=== PATIENT | female | born 1965 | race Caucasian/White ===

== ENCOUNTER 2021-08-14 01:41 | Observation (INO) | payer MEDICAID, SELFPAY ==
[2021-08-14] VITALS (15 sets, daily range): BP systolic 147–174; BP diastolic 68–77; PULSE 71–90; RESP 15–19; TEMP 36.7–37.1; O2SAT 91–99; BMI 47.9; BMI 50.3
--- NOTE | 2021-08-14 01:39 | XR_ITS ---
PROCEDURE INFORMATION: Exam: XR Chest Exam date and time: 08/14/2021 1:43 AM Age: 56 years old Clinical indication: Dyspnea; Patient HX: HX smoker TECHNIQUE: Imaging protocol: XR of the chest. Views: 1 view. COMPARISON: No relevant prior studies available. FINDINGS: Lungs: There is interstitial airspace disease in bilateral mid and lower lung zones findings concerning for pneumonia. Pleural spaces: Mild right left pleural effusion. Heart/Mediastinum: Unremarkable. No cardiomegaly. Bones/joints: Unremarkable. IMPRESSION: Interstitial opacities in bilateral mid and lower lung zones concerning for pneumonia
--- NOTE | 2021-08-14 01:45 | HMH.EDGENADL ---
ED Disposition Clinical Impression: Acute exacerbation of CHF (congestive heart failure), Hypokalemia, Angina at rest Disposition: Admitted as Observation Condition on Discharge: Undetermined - Critical Care Critical Care Time: No Attestation: On , the high probability of a clinically significant, sudden or life threatening deterioration of the following system(s) required my full and direct attention, intervention and personal management. The time I documented below is in addition to time spent performing reported procedures but includes the following listed in this critical care notation. Medical Decision Making - Medical Records Medical records reviewed: Yes: I reviewed the patient's medical records. - Erasmo Inquiry Pt receiving controlled substance: No Vital Signs: 08/14/21 01:37 08/14/21 01:59 08/14/21 02:09 Temperature 98.4 F Temperature Source Oral Pulse Rate 84 86 Pulse Rate [Right] 84 Respiratory Rate 19 15 16 Blood Pressure 147/77 H 156/75 H Blood Pressure [Right Arm] 174/75 H Blood Pressure Mean 100 102 Blood Pressure Mean [Right Arm] 108 Blood Pressure Source [Right Arm] Automatic Cuff 02 Sat by Pulse Oximetry 93 L 91 L 92 L Oxygen Delivery Method Room Air 08/14/21 02:19 08/14/21 02:29 08/14/21 02:56 Temperature 98.2 F Temperature Source Oral Pulse Rate 83 88 86 Pulse Rate [Right] Respiratory Rate 19 18 17 Blood Pressure 152/76 H 154/69 H 149/68 H Blood Pressure [Right Arm] Blood Pressure Mean 109 97 Blood Pressure Mean [Right Arm] Blood Pressure Source [Right Arm] 02 Sat by Pulse Oximetry 91 L 92 L Oxygen Delivery Method Room Air - Lab Data Lab Results 08/14/21 01:30: WBC 11.5 H, RBC 3.70 L, Hgb 10.3 L, Hct 31.7 L, MCV 85.7, MCH 27.9, MCHC 32.6, RDW 16.0, Plt Count 461 H, MPV 7.2 L, Neut % (Auto) 77.3, Lymph % (Auto) 15.3, [place] % (Auto) 4.2, Eos % (Auto) 1.9, Baso % (Auto) 1.3, Neut # (Auto) 8.9 H, Lymph # (Auto) 1.8, [place] # (Auto) 0.5, Eos # (Auto) 0.2, Baso # (Auto) 0.1 08/14/21 01:30: PT 11.4, INR 1.01 08/14/21 01:30: Sodium 139, Potassium 2.8 L*, Chloride 105, Carbon Dioxide 29, Anion Gap 7.8, BUN 20 H, Creatinine 1.70 H, Estimated Creat Clear 30, Estimated GFR 31 L, Est GFR ( Amer) 38 L, Glucose 232 H, Calcium 7.8 L, Total Bilirubin 0.2, AST 23, ALT 26, Alkaline Phosphatase 192 H, Troponin I 0.02, Total Protein 6.0 L, Albumin 3.1 L, Globulin 2.9, Albumin/Globulin Ratio 1.1 08/14/21 01:30: NT-Pro-B Natriuret Pep 2210 H 08/14/21 01:30: SARS-CoV-2 (PCR) Not detected, Influenza A Untype (PCR) Not detected, Influenza Type B (PCR) Not detected 08/14/21 01:45: Urine Color Yellow, Urine Appearance Clear, Urine pH 7.0, Ur Specific [place] 1.010, Urine Protein Negative, Urine Glucose (UA) 2+, Urine Ketones Negative, Urine Blood Trace-i, Urine Nitrate Negative, Urine Bilirubin Negative, Urine Urobilinogen 0.2, Ur Leukocyte Esterase 1+ A, Urine RBC 3-5, Urine WBC 5-10, Ur Squamous Epith Cells 5-10, Urine Bacteria 1+, Urine Mucus 1+ Result diagrams: 08/14/21 01:30 08/14/21 01:30 Orders (Tests/Meds): ED MEDICATIONS Generic Name Dose Route Start Last Admin Trade Name Sukhwinder PRN Reason Stop Dose Admin Acetaminophen 650 mg 08/14/21 02:55 Acetaminophen 325mg Tab PO 09/13/21 02:54 Q4HP PRN Fever or Mild Pain Aspirin 81 mg 08/14/21 09:00 Aspirin 81mg Chewable Tablet PO 09/13/21 08:59 DAILY SERJIO Atorvastatin Calcium 40 mg 08/14/21 21:00 Atorvastatin 40mg Tablet PO 09/13/21 20:59 HS SERJIO Buspirone HCl 5 mg 08/14/21 09:00 Buspirone Hcl 5 Mg Tablet PO 09/13/21 08:59 TID SERJIO Citalopram Hydrobromide 20 mg 08/14/21 09:00 Citalopram 20mg Tablet PO 09/13/21 08:59 DAILY SERJIO Furosemide 40 mg 08/14/21 02:55 Furosemide 40mg/4ml Vial IV 09/13/21 02:54 ONCE SERJIO Heparin Sodium/Dextrose 500 mls @ 24 mls/hr 08/14/21 02:55 Heparin 25,000 Units In D5w 500ml Premix IV 09/13/21 02:54
[2021-08-14 01:50] LABS: Basophils # 0.1 K/mm3 (0-0.2); Basophils % 1.3 % (0.1-2.0); Eosinophils # 0.2 K/mm3 (0.0-0.4); Eosinophils % 1.9 % (0.1-12.0); Hematocrit 31.7 % (37.0-47.0); Hemoglobin 10.3 g/dL (12.2-16.2); Lymphocytes # 1.8 K/mm3 (0.7-4.5); Lymphocytes % 15.3 % (10-50); Mean Corpuscular HGB Conc 32.6 g/dL (31.8-35.4); Mean Corpuscular Hemoglobin 27.9 pg (27.0-31.2); Mean Corpuscular Volume 85.7 fl (81-99); Mean Platelet Volume 7.2 fl (7.4-10.4); Monocytes # 0.5 K/mm3 (0.1-1.0); Monocytes % 4.2 % (1.7-9.3); Neutrophils # 8.9 K/mm3 (1.8-7.8); Neutrophils % 77.3 % (37.0-80.0); Platelet Count 461 K/mm3 (142-424); White Blood Count 11.5 K/mm3 (4.8-10.8)
--- NOTE | 2021-08-14 01:53 | ECG_ITS ---
APPROVED REPORT Exam: Resting ECG HR:88 bpm ECG Measurements Heart Rate 88 AXES OH 134 P 64 QRSd 94 QRS 61 QT 332 T 11 QTc 378 Conclusion SINUS RHYTHM NONSPECIFIC T-WAVE ABNORMALITY BORDERLINE ECG UNCONFIRMED REPORT Electronically signed by : Yonas Sahu MD 08/16/2021 22:20:49
[2021-08-14 01:57] LABS: Alanine Aminotransferase 26 U/L (12-78); Albumin Level 3.1 g/dl (3.5-5.0); Albumin/Globulin Ratio 1.1 (1.1-1.8); Alkaline Phosphatase 192 U/L (38-126); Anion Gap 7.8 mEq/L (5-15); Aspartate Amino Transferase 23 U/L (14-36); Bilirubin,Total 0.2 mg/dl (0.2-1.3); Blood Urea Nitrogen 20 mg/dl (7-17); Calcium 7.8 mg/dl (8.4-10.2); Carbon Dioxide 29 mmol/L (22.0-30.0); Chloride 105 mmol/L (98-107); Estimated Glomerular Filt Rate 31 ml/min (>60); GFR (African American) 38 ML/MIN (>60); Globulin 2.9 g/dL (1.3-3.2); Glucose 232 mg/dl (74-100); INR 1.01 (0.9-1.1); Prothrombin Time 11.4 seconds (10.1-12.5); Sodium 139 mmol/L (136-145)
[2021-08-14 02:06] LABS: NT Pro Brain Natriuretic Pep. 2210 pg/mL (0-125)
[2021-08-14 02:08] LABS: Troponin I 0.02 ng/ml (0.00-0.034)
[2021-08-14 02:19] LABS: Creatinine Clearance Estimated 30 mL/min (50-200)
[2021-08-14 02:20] LABS: Potassium 2.8 mmoL/L (3.5-5.1)
[2021-08-14 02:24] LABS: Coronavirus 19, PCR Not Detected (NotDetected); Influenza A, PCR Not Detected (NotDetected); Influenza B, PCR Not Detected (NotDetected)
[2021-08-14 02:27] LABS: Microscopic, Urine URINE MICROSCOPIC (MICROSCOPIC)
--- NOTE | 2021-08-14 02:33 | PC.NURSE ---
notified of critical potassium @ 8083
[2021-08-14 02:40] LABS: Appearance,Urine CLEAR (Clear); Bilirubin,Urine Negative (Negative); Blood, Urine TRACE-I (Negative); Color,Urine YELLOW (Yellow); Glucose,Urine (UA) 2+ (Negative); Ketones,Urine Negative (Negative); Leukocyte Esterase,Urine 1+ (Negative); Nitrate,Urine Negative (Negative); Protein,Urine Negative (Negative); Urobilinogen,Urine 0.2 EU/dl (0.2)
[2021-08-14 03:05] LABS: Bacteria,Urine 1+ /lpf; Mucus,Urine 1+ /lpf
--- NOTE | 2021-08-14 03:38 | PC.NURSE ---
patient up to floor @ 03:18am via wheelchair.
[2021-08-14 04:30] LABS: Activated Partial Thrombo Time 22.5 seconds (22.8-30.6)
[2021-08-14 05:35] LABS: Troponin I 0.01 ng/ml (0.00-0.034)
[2021-08-14 05:48] LABS: POC Glucose,Bedside 278 (70-110)
--- NOTE | 2021-08-14 06:59 | PC.WOUNDNOTE ---
Opened wound to coccyx, Pt states she had surgery to remove an abscess x1 week ago. States her daughter has been doing all dressing changes at home for her. Applied 4x4 gauze, ABD pad, and tape. C/D/I.
--- NOTE | 2021-08-14 08:25 | HMH.HP ---
*Admission Date: 08/14/21 *Chief complaint: short of breath, NSTEMI *History of present illness: Ms. Serrano is a 56-year-old female with past medical history of morbid obesity, CHF, COPD, NEVAEH, CKD, type 2 diabetes, and recent diagnosis of pulmonary emboli in May (on Eliquis since diagnosis). Is disabled, fairly and active on a daily basis. Had a recent hospitalization at 2 weeks ago for surgical debridement and excision of abscess on her right buttock. Recently finished antibiotics, daughter helping with wound care. She presented to [facility] with worsening shortness of breath that has been progressive for the past 3 to 4 months. She has been unable to get in with her property accountant and Judith (Drs. Pierre and Prince) and symptoms finally got to the point that she went to the hospital. States she has had shortness of breath when lying flat, is more comfortable sitting up, increased edema over the past several months. More acutely worse over the past week since getting home from recent admission at . Denies any fever, productive cough, oxygen requirement at home. Wears a CPAP at home to sleep. On arrival to [facility], EKG obtained showing nonspecific T wave abnormalities. Labs with high-sensitivity troponin showing slight elevation concerning for NSTEMI. Given comorbidities and NSTEMI, [facility] cardiology was consulted. Patient was accepted for transfer. Admitted to medicine for further management after ER to ER transfer. Work-up in our ER concerning for UTI and CHF exacerbation. Diuresed at [facility] with fair response but for monitoring/measuring of output process. This morning she is continues to report shortness of breath and some heaviness in her chest. Denies cough. Denies fever. Diarrhea since antibiotics for her buttock wound. Is afebrile. Blood pressure above goal. Alert and oriented x3. [facility] History I have reviewed the patient's past medical history: Yes Medical History: Reports:: Congestive Heart Failure, Diabetes Mellitus Type 2, Hypertension Denies:: Cancer, MRSA *Have you ever received a pneumonia vaccine?: Yes *Have you received a flu vaccine this season?: Yes Other Surgeries: Yes: Cholecystectomy, Hernia Repair, Hysterectomy-Total Amputation: No Fractures: No - *Social History Last grade of school completed: High school graduate Smoking Status: Former smoker Alcohol Intake: never *Occupational Status:: disabled Housing: house Household Members: significant other, children *Travel in the last 8 weeks: None Family Hx:: Heart Attack, Hypertension Review of Systems - Review of Systems Review of systems:: pertinent systems reviewed and negative unless documented below (14 point review of systems performed, pertinent positives and negatives as per HPI) Meds Home Medications Medication Instructions Recorded Confirmed Type Apixaban [Eliquis 5mg tab] 5 mg PO BID 08/14/21 08/14/21 History Aspirin [Aspirin 81mg chewable 81 mg PO DAILY 08/14/21 08/14/21 History tab] Atorvastatin Calcium [Lipitor 40mg 40 mg PO HS 08/14/21 08/14/21 History Tab] Buspirone HCl [Buspar 5mg tablet] 5 mg PO TID 08/14/21 08/14/21 History Citalopram Hydrobromide 20 mg PO DAILY 08/14/21 08/14/21 History [Citalopram 20mg Tablet] Empagliflozin [Jardiance 10mg 25 mg PO DAILY 08/14/21 08/14/21 History Tablet] Furosemide [Furosemide 40MG tAB*] 40 mg PO DAILY 08/14/21 08/14/21 History Insulin Glargine,Hum.rec.anlog 75 units SQ AM 08/14/21 08/14/21 History [Lantus Solostar 100 Units/mL 3mL flexpen] Loratadine [Claritin] 10 mg PO DAILY 08/14/21 08/14/21 History Metformin HCl [Metformin 1000mg 1,000 mg PO BID 08/14/21 08/14/21 History Tablets] Metoprolol Succinate [Metoprolol 25 mg PO DAILY 08/14/21 08/14/21 History Succinate 25mg Tablet*] Nicotine [Nicoderm 21mg/24hr 21 mg TD DAILY 08/14/21 08/14/21 History patch] Omeprazol
--- NOTE | 2021-08-14 08:49 | ECG_ITS ---
APPROVED REPORT Exam: Resting ECG HR:78 bpm ECG Measurements Heart Rate 78 AXES MN 136 P 61 QRSd 103 QRS 47 QT 339 T 42 QTc 373 Conclusion SINUS RHYTHM NONSPECIFIC T-WAVE ABNORMALITY BORDERLINE ECG UNCONFIRMED REPORT Electronically signed by : Yonas Sahu MD 08/16/2021 22:20:25
[2021-08-14 09:40] LABS: Troponin I < 0.01 ng/ml (0.00-0.034)
--- NOTE | 2021-08-14 10:21 | HMH.PHAVTE ---
[facility] Pharmacy VTE Monitoring - Patient Demographics Admission date: 08/14/21 Report Date: 08/14/21 Time: 10:21 Allergies/Adverse Reactions: Patient Allergies No Known Allergies Allergy (Verified 08/14/21 01:58) Height: 1.57 m Weight: 124.239 kg Patient Problems: Current Active Problems Acute exacerbation of CHF (congestive heart failure) (Acute) Hypokalemia (Acute) Angina at rest (Acute) - VTE Risk Labs: VTE Related Lab Results Hgb 10.3 g/dL (12.2-16.2) L 08/14/21 01:30 Hct 31.7 % (37.0-47.0) L 08/14/21 01:30 Plt Count 461 K/mm3 (142-424) H 08/14/21 01:30 PT 11.4 seconds (10.1-12.5) 08/14/21 01:30 INR 1.01 (0.9-1.1) 08/14/21 01:30 APTT 22.5 seconds (22.8-30.6) L 08/14/21 01:30 BUN 20 mg/dl (7-17) H 08/14/21 01:30 Creatinine 1.70 mg/dl (0.52-1.04) H 08/14/21 01:30 Estimated Creat Clear 30 mL/min (50-200) 08/14/21 01:30 VTE Score: 8 VTE Risk Level: Moderate Risk - Prophylaxis Types of VTE Prophylaxis: TEDS Knee High (HEPARIN DRIP ORDERED AND MANUEL HOSE.), Pharmacological Pharmacologic Type: Heparin
--- NOTE | 2021-08-14 10:22 | P.CONPHA_ITS ---
[facility] Pharmacy Heparin Dosing - Demographic Data Admission date:: 08/14/21 Date: 08/14/21 Time: 10:22 Allergies/Adverse Reactions: Allergies Allergy/AdvReac Type Severity Reaction Status Date / Time No Known Allergies Allergy Verified 08/14/21 01:58 Height: 1.57 m Weight: 124.2 kg - Indication Medication therapy:: Heparin Patient Problems: Current Active Problems Acute exacerbation of CHF (congestive heart failure) (Acute) Hypokalemia (Acute) Angina at rest (Acute) CVA?: No Bleeding problem?: No Kidney disease?: No [place]?: No Desired PTT range:: Other Comments:: 50-75 - Labs Anticoagulation Lab Results:: 08/14/21 01:30 Hgb 10.3 L Hct 31.7 L Plt Count 461 H - Monitoring Dose Monitor 1 Date: 08/14/21 Time: 01:30 PTT Result:: 22.9 Infusion Rate:: 1000 UNITS/HR. OVERNIGHT DID NOT GIVE BOLUS. - Core Measures Is INR > or = 2 at discharge?: No Most Recent Labs:: Laboratory Results - last 24 hr 08/14/21 01:30: WBC 11.5 H, RBC 3.70 L, Hgb 10.3 L, Hct 31.7 L, MCV 85.7, MCH 27.9, MCHC 32.6, RDW 16.0, Plt Count 461 H, MPV 7.2 L, Neut % (Auto) 77.3, Lymph % (Auto) 15.3, [place] % (Auto) 4.2, Eos % (Auto) 1.9, Baso % (Auto) 1.3, Neut # (Auto) 8.9 H, Lymph # (Auto) 1.8, [place] # (Auto) 0.5, Eos # (Auto) 0.2, Baso # (Auto) 0.1 08/14/21 01:30: PT 11.4, INR 1.01 08/14/21 01:30: Sodium 139, Potassium 2.8 L*, Chloride 105, Carbon Dioxide 29, Anion Gap 7.8, BUN 20 H, Creatinine 1.70 H, Estimated Creat Clear 30, Estimated GFR 31 L, Est GFR ( Amer) 38 L, Glucose 232 H, Calcium 7.8 L, Total Bilirubin 0.2, AST 23, ALT 26, Alkaline Phosphatase 192 H, Troponin I 0.02, Total Protein 6.0 L, Albumin 3.1 L, Globulin 2.9, Albumin/Globulin Ratio 1.1 08/14/21 01:30: NT-Pro-B Natriuret Pep 2210 H 08/14/21 01:30: SARS-CoV-2 (PCR) Not detected, Influenza A Untype (PCR) Not detected, Influenza Type B (PCR) Not detected 08/14/21 01:30: APTT 22.5 L 08/14/21 01:45: Urine Color Yellow, Urine Appearance Clear, Urine pH 7.0, Ur Specific [place] 1.010, Urine Protein Negative, Urine Glucose (UA) 2+, Urine Ketones Negative, Urine Blood Trace-i, Urine Nitrate Negative, Urine Bilirubin Negative, Urine Urobilinogen 0.2, Ur Leukocyte Esterase 1+ A, Urine RBC 3-5, Urine WBC 5-10, Ur Squamous Epith Cells 5-10, Urine Bacteria 1+, Urine Mucus 1+ 08/14/21 04:50: Troponin I 0.01 08/14/21 05:36: POC Glucose 278 H 08/14/21 08:36: Troponin I < 0.01 Were Heparin and Warfarin started on the same day?: No Comments:: PATIENT'S HEPARIN DOSE STOPPED AND MD RESTARTED PATIENT'S ELIQUIS DOSE.
[2021-08-14 11:29] LABS: PTT Heparin (inpatient only) 22.9 Seconds (23.6-34.0)
--- NOTE | 2021-08-14 11:54 | HMH.PHACONS ---
- Pharmacy Consult Date: 08/14/21 Time: 11:54 Referring provider: DR. MURPHY Reason for Consult:: VANCOMYCIN DOSING Allergies and ADEs:: Allergies Allergy/AdvReac Type Severity Reaction Status Date / Time No Known Allergies Allergy Verified 08/14/21 01:58 Home Medications:: Home Medications Medication Instructions Recorded Confirmed Type Apixaban [Eliquis 5mg tab] 5 mg PO BID 08/14/21 08/14/21 History Aspirin [Aspirin 81mg chewable 81 mg PO DAILY 08/14/21 08/14/21 History tab] Atorvastatin Calcium [Lipitor 40mg 40 mg PO HS 08/14/21 08/14/21 History Tab] Buspirone HCl [Buspar 5mg tablet] 5 mg PO TID 08/14/21 08/14/21 History Citalopram Hydrobromide 20 mg PO DAILY 08/14/21 08/14/21 History [Citalopram 20mg Tablet] Empagliflozin [Jardiance 10mg 25 mg PO DAILY 08/14/21 08/14/21 History Tablet] Furosemide [Furosemide 40MG tAB*] 40 mg PO DAILY 08/14/21 08/14/21 History Insulin Glargine,Hum.rec.anlog 75 units SQ AM 08/14/21 08/14/21 History [Lantus Solostar 100 Units/mL 3mL flexpen] Loratadine [Claritin] 10 mg PO DAILY 08/14/21 08/14/21 History Metformin HCl [Metformin 1000mg 1,000 mg PO BID 08/14/21 08/14/21 History Tablets] Metoprolol Succinate [Metoprolol 25 mg PO DAILY 08/14/21 08/14/21 History Succinate 25mg Tablet*] Nicotine [Nicoderm 21mg/24hr 21 mg TD DAILY 08/14/21 08/14/21 History patch] Omeprazole [Omeprazole 40mg 40 mg PO DAILY 08/14/21 08/14/21 History Capsule] Prazosin HCl [Minipress] 2 mg PO HS 08/14/21 08/14/21 History Ropinirole HCl [Requip 1mg tablet] 1 mg PO HS 08/14/21 08/14/21 History Sodium Bicarbonate 650 mg PO DAILY 08/14/21 08/14/21 History Tiotropium Br/Olodaterol HCl 2 puff IH DAILY 08/14/21 08/14/21 History [Stiolto Respimat Inhal [place]] Trazodone HCl 100 mg PO HS 08/14/21 08/14/21 History buPROPion HCL [Wellbutrin XL] 300 mg PO DAILY 08/14/21 08/14/21 History glipiZIDE [Glipizide ER] 10 mg PO DAILY 08/14/21 08/14/21 History risperiDONE [Risperdal 1mg Tablet] 1 mg PO HS 08/14/21 08/14/21 History Height: 1.57 m Weight: 124.2 kg Laboratory Results:: Laboratory Results - last 24 hr 08/14/21 01:30: WBC 11.5 H, RBC 3.70 L, Hgb 10.3 L, Hct 31.7 L, MCV 85.7, MCH 27.9, MCHC 32.6, RDW 16.0, Plt Count 461 H, MPV 7.2 L, Neut % (Auto) 77.3, Lymph % (Auto) 15.3, [place] % (Auto) 4.2, Eos % (Auto) 1.9, Baso % (Auto) 1.3, Neut # (Auto) 8.9 H, Lymph # (Auto) 1.8, [place] # (Auto) 0.5, Eos # (Auto) 0.2, Baso # (Auto) 0.1 08/14/21 01:30: PT 11.4, INR 1.01 08/14/21 01:30: Sodium 139, Potassium 2.8 L*, Chloride 105, Carbon Dioxide 29, Anion Gap 7.8, BUN 20 H, Creatinine 1.70 H, Estimated Creat Clear 30, Estimated GFR 31 L, Est GFR ( Amer) 38 L, Glucose 232 H, Calcium 7.8 L, Total Bilirubin 0.2, AST 23, ALT 26, Alkaline Phosphatase 192 H, Troponin I 0.02, Total Protein 6.0 L, Albumin 3.1 L, Globulin 2.9, Albumin/Globulin Ratio 1.1 08/14/21 01:30: NT-Pro-B Natriuret Pep 2210 H 08/14/21 01:30: SARS-CoV-2 (PCR) Not detected, Influenza A Untype (PCR) Not detected, Influenza Type B (PCR) Not detected 08/14/21 01:30: APTT 22.5 L 08/14/21 01:45: Urine Color Yellow, Urine Appearance Clear, Urine pH 7.0, Ur Specific [place] 1.010, Urine Protein Negative, Urine Glucose (UA) 2+, Urine Ketones Negative, Urine Blood Trace-i, Urine Nitrate Negative, Urine Bilirubin Negative, Urine Urobilinogen 0.2, Ur Leukocyte Esterase 1+ A, Urine RBC 3-5, Urine WBC 5-10, Ur Squamous Epith Cells 5-10, Urine Bacteria 1+, Urine Mucus 1+ 08/14/21 04:50: Troponin I 0.01 08/14/21 05:36: POC Glucose 278 H 08/14/21 08:36: Troponin I < 0.01 08/14/21 10:55: APTT 22.9 L Medical History: Reports:: Congestive Heart Failure, Diabetes Mellitus Type 2, Hypertension Denies:: Cancer, MRSA Assessment and Plan - Assessment and plan all Dx Assessment and Plan for all problems:: RECOMMEND STARTING WITH VANCOMYCIN 1750 MG Q24H AT THIS TIME. WILL OBTAIN TROUGH LEVEL PRIOR TO 3RD OR 4TH DO
[2021-08-14 12:13] LABS: POC Glucose,Bedside 289 (70-110)
[2021-08-14 14:25] LABS: Chloride 99 mmol/L (98-107)
[2021-08-14 14:26] LABS: Potassium 3.2 mmoL/L (3.5-5.1); Sodium 139 mmol/L (136-145)
[2021-08-14 14:28] LABS: Alanine Aminotransferase 35 U/L (12-78); Alkaline Phosphatase 175 U/L (38-126); Anion Gap 15.2 mEq/L (5-15); Aspartate Amino Transferase 30 U/L (14-36); Bilirubin,Total 0.4 mg/dl (0.2-1.3); Carbon Dioxide 28 mmol/L (22.0-30.0)
[2021-08-14 14:29] LABS: Albumin Level 3.9 g/dl (3.5-5.0); Albumin/Globulin Ratio 1.3 (1.1-1.8); Calcium 9.3 mg/dl (8.4-10.2); Globulin 3.1 g/dL (1.3-3.2); Magnesium 1.7 mg/dl (1.6-2.3)
[2021-08-14 14:53] LABS: Blood Urea Nitrogen 21 mg/dl (7-17); Creatinine Clearance Estimated 29 mL/min (50-200); Estimated Glomerular Filt Rate 31 ml/min (>60); GFR (African American) 38 ML/MIN (>60)
--- NOTE | 2021-08-14 14:58 | PC.WOUNDNOTE ---
Spoke with adelia about critcal lab for glucose
[2021-08-14 14:59] LABS: Glucose 400 mg/dl (74-100)
--- NOTE | 2021-08-14 15:20 | PC.NURSE ---
Spoke with vincent and notified him of glucose.
[2021-08-14 15:46] LABS: POC Glucose,Bedside 357 (70-110)
--- NOTE | 2021-08-14 20:43 | PC.NURSE ---
Pt has no changed from previous assessment. Will continue to monitor.
[2021-08-15] VITALS: BP 160/100; PULSE 70; PULSE 75; RESP 16; TEMP 37; O2SAT 98
[2021-08-15 04:00] VITALS: BP 138/75; PULSE 65; RESP 16; TEMP 36.9; O2SAT 98
--- NOTE | 2021-08-15 04:26 | PC.NURSE ---
Pt ambulated to the bathroom with supervision only. PT encouraged to use mesh panties for dressing since the tape was causing her discomfort with dressing changes. No longer c/o diarrhea this shift. Dressing gets saturated with every urine. PT refuses to have a calvillo placed at this time. tolerates dressing changes. used cpap at hs. uses call arvizu for needs.
--- NOTE | 2021-08-15 05:55 | PC.NURSE ---
Juma VAZQUEZ NOTIFIED OF CONSULT.
[2021-08-15 06:33] VITALS: PULSE 75; PULSE 76; O2SAT 95
[2021-08-15 06:42] LABS: POC Glucose,Bedside 138 (70-110)
--- NOTE | 2021-08-15 07:00 | CA_ITS ---
APPROVED REPORT EXAM: Comprehensive 2D, Doppler, and color-flow Echocardiogram Production Welder: HELENA Jara, RVS Ht: 5 ft 1 in Wt: 273lbs BSA: 2.16 BP: 149/68 mmHg Indications: NSTEMI, CHF, COPD,EXMOKER, OBESITY.EDEMA Echo Enhancing Agent Comments: POOR ACOUSTICS THROUGHOUT EXAM 2D Dimensions IVSd 1.07 cm LVEF (Visual) 48.30 % PWd 1.06 cm LA Volume 100.70 mL LVDd 5.74 cm LA Volume Index [id number] mL/m2 (M/F) 16-34 LVDs 4.32 cm Aortic Root 2.51 cm Left Atrium 4.49 cm LVOT 2.18 cm (M/F) 1.5-2.5 M-Mode Dimensions LA Diam 4.76 cm (1.9-4.0) Ao Diam 2.85 cm (2.0-3.7) EPSs 1.75 cm TAPSE 2.42 (<1.7) LV Diastology E Decel Time 163.00 (160-240 msec) E/A Ratio 2.65 MED E' 5.50 (< 7 cm/sec) MED A' 7.00 cm/s E'/MED E' Ratio 23.93 (>14) LAT E' 8.30 (<10 cm/sec) LAT A' 6.80 cm/s E/LAT E' Ratio 15.86 (>14) Aortic Valve LVOT Max 95.00 (70-110 cm/s) LVOT VTI 19.94 cm AoV Peak Kamaljit. 139.00 (50-130 cm/s) AO Peak GR. 7.70 mmHg AO Mean GR. 4.80 (<5 mmHg) AO VTI 32.39 (18-25 cm) YOEL (VTI) 2.30 (2.5-4.5 cm2) Mitral Valve MV A Velocity 50.00 (40-130 cm/s) E/A Ratio 2.65 MV Decel. Time 163.00 (160-240 ms) MV Mean Gr. 2.20 (<2mmHg) MV PHT 60.00 ms Pulmonary Valve PV Peak Velocity 83.00 (50-150 cm/s) Tricuspid Valve TR P. Velocity 272.00 cm/s RAP Estimate 10.00 mmHg RVSP 39.50 mmHg Left Ventricle Left atrium is mildly enlarged, left ventricle is normal size, mild concentric left ventricular hypertrophy, estimated ejection fraction 55% with no regional wall motion abnormality, endocardial surfaces are poorly visualized. Parameters are inconclusive. Right Ventricle Right atrium and right ventricle are mildly enlarged with normal contractility. Aortic Valve Aortic valve is minimally thickened and calcified without aortic stenosis or aortic insufficiency. Mitral Valve Mitral valve leaflets are minimally thickened, there is mild to moderate mitral regurgitation. Tricuspid Valve Tricuspid valve is grossly normal, there is mild tricuspid regurgitation, tricuspid regurgitation jet velocity is inadequate for calculation of the right ventricular systolic pressure. Pulmonic Valve Pulmonic valve is poorly visualized. Great Vessels Aortic root is normal size. Inferior vena cava is poorly visualized. Pericardium No significant pericardial effusion noted. Conclusion 1. Technically difficult study because of the patient factors and poor acoustic windows. 2. Mild biatrial enlargement, normal left ventricular size, mild concentric left ventricular hypertrophy, estimated ejection fraction 5% with no regional wall motion abnormality, diastolic parameters are inconclusive. 3. Mildly enlarged right ventricle with normal contractility. 4. Mild to moderate mitral and mild tricuspid regurgitation. 5. No significant pericardial effusion. 6. Inferior vena cava is poorly visualized. Electronically signed by : Ovidio Diggs MD 08/15/2021 14:32:19
[2021-08-15 07:01] LABS: Basophils # 0.1 K/mm3 (0-0.2); Basophils % 0.8 % (0.1-2.0); Eosinophils # 0.3 K/mm3 (0.0-0.4); Eosinophils % 2.5 % (0.1-12.0); Hematocrit 32.4 % (37.0-47.0); Hemoglobin 10.6 g/dL (12.2-16.2); Lymphocytes # 2.2 K/mm3 (0.7-4.5); Lymphocytes % 20.4 % (10-50); Mean Corpuscular HGB Conc 32.7 g/dL (31.8-35.4); Mean Corpuscular Hemoglobin 26.3 pg (27.0-31.2); Mean Corpuscular Volume 80.4 fl (81-99); Mean Platelet Volume 6.6 fl (7.4-10.4); Monocytes # 0.6 K/mm3 (0.1-1.0); Monocytes % 5.7 % (1.7-9.3); Neutrophils # 7.7 K/mm3 (1.8-7.8); Neutrophils % 70.6 % (37.0-80.0); Platelet Count 438 K/mm3 (142-424); Red Blood Count 4.03 M/mm3 (4.20-5.40); Red Cell Distribution Width 15.4 % (11.5-17.5); White Blood Count 10.8 K/mm3 (4.8-10.8)
--- NOTE | 2021-08-15 07:04 | PC.NURSE ---
PT slept all night. She took all her meds adn said that is the best night sleep i have had in a while. Spoke with son and he agreed. PT given x1 dose of tordal and reported that it has been effective. PT is scared to home due to falling.
[2021-08-15 07:08] LABS: Chloride 104 mmol/L (98-107); Potassium 3.1 mmoL/L (3.5-5.1); Sodium 143 mmol/L (136-145)
[2021-08-15 07:10] LABS: Alanine Aminotransferase 28 U/L (12-78); Aspartate Amino Transferase 27 U/L (14-36); Blood Urea Nitrogen 20 mg/dl (7-17); Creatinine Clearance Estimated 30 mL/min (50-200); Estimated Glomerular Filt Rate 34 ml/min (>60); GFR (African American) 41 ML/MIN (>60)
[2021-08-15 07:11] LABS: Albumin Level 3.6 g/dl (3.5-5.0); Albumin/Globulin Ratio 1.2 (1.1-1.8); Alkaline Phosphatase 136 U/L (38-126); Bilirubin,Total 0.3 mg/dl (0.2-1.3); Calcium 9.3 mg/dl (8.4-10.2); Carbon Dioxide 31 mmol/L (22.0-30.0); Globulin 3.1 g/dL (1.3-3.2); Glucose 149 mg/dl (74-100); Magnesium 2.1 mg/dl (1.6-2.3); Total Protein,Serum 6.7 g/dl (6.3-8.2)
[2021-08-15 07:12] LABS: Anion Gap 11.1 mEq/L (5-15)
[2021-08-15 07:46] VITALS: BP 157/97; PULSE 83; RESP 22; TEMP 37
--- NOTE | 2021-08-15 08:09 | HMH.DCSUM ---
General - General Admission date:: 08/14/21 Discharge date: 08/15/21 HPI HPI: Ms. Serrano is a 56-year-old female with past medical history of morbid obesity, CHF, COPD, NEVAEH, CKD, type 2 diabetes, and recent diagnosis of pulmonary emboli in May (on Eliquis since diagnosis). Is disabled, fairly and active on a daily basis. Had a recent hospitalization at 2 weeks ago for surgical debridement and excision of abscess on her right buttock. Recently finished antibiotics, daughter helping with wound care. She presented to [facility] with worsening shortness of breath that has been progressive for the past 3 to 4 months. She has been unable to get in with her poultryman and Judith (Drs. Pierre and Prince) and symptoms finally got to the point that she went to the hospital. States she has had shortness of breath when lying flat, is more comfortable sitting up, increased edema over the past several months. More acutely worse over the past week since getting home from recent admission at . Denies any fever, productive cough, oxygen requirement at home. Wears a CPAP at home to sleep. On arrival to [facility], EKG obtained showing nonspecific T wave abnormalities. Labs with high-sensitivity troponin showing slight elevation concerning for NSTEMI. Given comorbidities and NSTEMI, [facility] cardiology was consulted. Patient was accepted for transfer. Admitted to medicine for further management after ER to ER transfer. Work-up in our ER concerning for UTI and CHF exacerbation. Diuresed at [facility] with fair response but for monitoring/measuring of output process. This morning she is continues to report shortness of breath and some heaviness in her chest. Denies cough. Denies fever. Diarrhea since antibiotics for her buttock wound. Is afebrile. Blood pressure above goal. Alert and oriented x3. Hospital Course Hospital Course: Patient was admitted. Diuresed aggressively with Lasix. Did well with this and her kidney function actually improved. Echo this morning showed EF 54% with evidence of diastolic dysfunction patient tolerated BiPAP through the night and this morning was able to tolerate room air. Wound was treated by nursing staff. Patient has an appointment with [facility] surgical service for wound care evaluation later today and plans to reschedule labs in the next couple of days. She feels much better this morning glucose is better, hemoglobin and hematocrit stable. It was thought patient might have a UTI on admission, so far culture is negative. Plan to discharge patient today on daily Lasix. Will arrange follow-up with her cardiology group in [place]. She sees respiratory care service Please arrange for follow-up there. We have encouraged her to continue holding her SGLT2 because of high risk of skin infections in her perineal area. We have encouraged her to follow-up with surgical service and to maintain her BiPAP therapy at night. Because of her significant wound, issues with mobility and multiple medical problems I think she would be an excellent candidate for home health services. In my [id number] assessment of her today I determined that because of her significant obesity, wound and dyspnea she has great difficulty leaving her home and will be eligible for home health for PT/OT/wound care/nursing and home safety evaluation. Objective Vital signs: Temp Pulse Resp BP Pulse Ox 98.6 F 83 22 157/97 H 95 08/15/21 07:46 08/15/21 07:46 08/15/21 07:46 08/15/21 07:46 08/15/21 06:33 no acute distress, morbidly obese - *Routine HEENT Exam Head: Present: normocephalic Eye: Present: EOMI, PERRL ENT: Present: mucous membranes moist - *Routine Neck Exam Present: supple - *Routine Respiratory Exam Present: decreased breath sounds Comments: In both bases, good air movement no crackles - *Routine Cardiovascular
--- NOTE | 2021-08-15 08:43 | PC.NURSE ---
Called and spoke with Orion to make aware that pt will be d/cd today.
--- NOTE | 2021-08-15 09:18 | HMH.PHAINT ---
DISCHARGE MEDICATION COUNSELING PROVIDED. DISCUSSED THE NEW SHORT-COURSE BACTRIM AND WHAT TO EXPECT (TAKE TWICE A DAY, WITH OR WITHOUT FOOD, WATCH FOR RASH/UPSET STOMACH/SUN SENSITIVITY/INCREASED POTASSIUM LEVELS/MUSCLE PAIN/IRREGULAR HEARTBEAT). EXPLAINED THERE WAS A NEW PRESCRIPTION ENTERED FOR FUROSEMIDE 40 MG DAILY BUT THIS WAS A CONTINUATION OF THE CURRENT HOME DOSE. PATIENT ENDORSED NO QUESTIONS AT THIS TIME.
--- NOTE | 2021-08-15 09:19 | HMH.CNCARD ---
History of Present Illness Consult date: 08/15/21 Requesting physician: Alfredo Cox Consult reason: congestive heart failure Chief complaint: SOA Additional Medical History:: 1. Obesity 2. Diabetes mellitus with dyslipidemia and CKD. 3. Recent pulmonary emboli approximately May 2021, patient is on Eliquis therapy 4. Hypertension 5. Dyslipidemia 6. Obstructive sleep apnea 7. History of diastolic congestive heart failure, acute on chronic exacerbation, 08/2021 8. Chronic kidney disease, stage III 9. Gluteal abscess, 08/2021 10. Urinary tract infection, 08/2021 History of present illness: Ms. Serrano is a 56-year-old female with past medical history of morbid obesity, CHF, COPD, NEVAEH, CKD, type 2 diabetes, and recent diagnosis of pulmonary emboli in May (on Eliquis since diagnosis). Is disabled, fairly and active on a daily basis. Had a recent hospitalization at 2 weeks ago for surgical debridement and excision of abscess on her right buttock. Recently finished antibiotics, daughter helping with wound care. She presented to [facility] with worsening shortness of breath that has been progressive for the past 3 to 4 months. She has been unable to get in with her livestock buyer and Judith (Drs. Pierre and Prince) and symptoms finally got to the point that she went to the hospital. States she has had shortness of breath when lying flat, is more comfortable sitting up, increased edema over the past several months. More acutely worse over the past week since getting home from recent admission at . Denies any fever, productive cough, oxygen requirement at home. Wears a CPAP at home to sleep. On arrival to [facility], EKG obtained showing nonspecific T wave abnormalities. Labs with high-sensitivity troponin showing slight elevation concerning for NSTEMI. Given comorbidities and NSTEMI, [facility] cardiology was consulted. Patient was accepted for transfer. Admitted to medicine for further management after ER to ER transfer. Work-up in our ER concerning for UTI and CHF exacerbation. Diuresed at [facility] with fair response but for monitoring/measuring of output process. This morning she is continues to report shortness of breath and some heaviness in her chest. Denies cough. Denies fever. Diarrhea since antibiotics for her buttock wound. Is afebrile. Blood pressure above goal. Alert and oriented x3. The above per Dr. Cox. The above events prior to admission confirmed with patient. Shortness of breath has improved with diuresis. Preliminary echocardiogram this morning shows preserved ejection fraction with evidence of diastolic dysfunction and no significant valve disease but with elevated pulmonary artery pressure in the mid 30s millimeters mercury range. In light of normal troponins with essentially normal systolic function and no acute EKG changes it is recommended that patient be discharged home with diuretic therapy for CHF and further work-up as an outpatient. [facility] History Medical History: Reports:: Congestive Heart Failure, Diabetes Mellitus Type 2, Hypertension Denies:: Cancer, MRSA *Have you ever received a pneumonia vaccine?: Yes *Have you received a flu vaccine this season?: Yes Other Surgeries: Yes: Cholecystectomy, Hernia Repair, Hysterectomy-Total Amputation: No Fractures: No - *Social History Last grade of school completed: High school graduate Smoking Status: Former smoker Alcohol Intake: never *Occupational Status:: disabled Housing: house Household Members: significant other, children *Travel in the last 8 weeks: None Family Hx:: Heart Attack, Hypertension Meds Home Medications Medication Instructions Recorded Confirmed Type Apixaban [Eliquis 5mg tab] 5 mg PO BID 08/14/21 08/14/21 History Aspirin [Aspirin 81mg chewable 81 mg PO DAILY 08/14/21 08/14/21 History tab] Atorvastatin Calcium [Lipitor 40mg 40 mg PO HS 08/14/21 08/14/21
--- NOTE | 2021-08-15 09:21 | SW/DCPLANNER ---
Addendum entered by Radha Snyder 08/15/21 10:38: [facility] is unable to accept this patient. Due to patient's insurance being Medicaid I will not be able to set this patient up with home health. I will inform Dr Sahu of situation. Original Note: Patient information/order has been faxed to [facility] of for PT/OT/wound care. I will follow up with [facility] once information/order is reviewed. Patient will discharge home later today.
== END 2021-08-15 09:28 | disposition home health service (06) ==
LOC: ER 01:56 → 2ND 02:58
PROVIDERS: Admitting Provider Internal Medicine Adolescent Medicine; Emergency Provider Student in an Organized Health Care Education/Training Program; PCP Nurse Practitioner Family; Visit Provider Internal Medicine Adolescent Medicine
DX: I11.0 Hypertensive heart disease with heart failure (principal); I50.33 Acute on chronic diastolic (congestive) heart failure; N18.30 Chronic kidney disease, stage 3 unspecified; E11.22 Type 2 diabetes mellitus with diabetic chronic kidney disease; Z79.4 Long term (current) use of insulin; Z79.01 Long term (current) use of anticoagulants; Z20.822 Contact with and (suspected) exposure to COVID-19; Z86.711 Personal history of pulmonary embolism; L02.31 Cutaneous abscess of buttock; E66.9 Obesity, unspecified; Z68.43 Body mass index [BMI] 50.0-59.9, adult; N39.0 Urinary tract infection, site not specified; E87.6 Hypokalemia; I50.1 Left ventricular failure, unspecified; Z79.899 Other long term (current) drug therapy
CPT/HCPCS: 36415; 71045; 80053; 81001; 82962; 83735; 83880; 84484; 85025; 85610; 85730; 87077; 87086; 87088; 93005; 93306; 94640; 94761; 99285; C9803; G0378; J0696; U0003; U0005

== ENCOUNTER 2024-07-09 15:55 | Emergency (ER) | payer MEDICAID, SELFPAY ==
--- NOTE | 2024-07-09 16:02 | ED_ITS ---
<Statement entered by Carmelnia Gomez MD - 07/09/24 21:48> I was consulted by the CRISTOPHER, and we discussed the complexity of the problems being addressed. I approved the treatment and management plan for this patient's care in the emergency department, thus performing a substantive portion of the medical decision making. Carmelina Gomez MD, RONAL, FACEP Discharge Plan Disposition Patient Disposition: Home, Self-Care Condition: Good Prescriptions Prescriptions: No Action ropinirole 1 MG tablet 1 mg PO HS bupropion HCl 300 MG tablet extended release 24 hr 300 mg PO DAILY Patient Comments: TAKE 1 TABLET BY MOUTH EVERY MORNING insulin glargine 100 UNIT/ML insulin pen 75 units SQ AM furosemide 40 MG tablet 40 mg PO DAILY atorvastatin 40 MG tablet 40 mg PO HS buspirone 5 MG tablet 5 mg PO TID glipizide 10 MG tablet extended release 24hr 10 mg PO DAILY omeprazole 40 MG capsule,delayed release(DR/EC) 40 mg PO DAILY citalopram 20 MG tablet 20 mg PO DAILY trazodone 100 MG tablet 100 mg PO HS metformin 1,000 MG tablet 1,000 mg PO BID nicotine 21 MG/PATCH patch 24 hour 21 mg TD DAILY aspirin 81 MG tablet,chewable 81 mg PO DAILY metoprolol succinate 25 MG tablet extended release 24 hr 25 mg PO DAILY risperidone 1 MG tablet 1 mg PO HS prazosin 2 MG capsule 2 mg PO HS loratadine 10 MG capsule 10 mg PO DAILY tiotropium-olodaterol 4 GM mist 2 puff IH DAILY apixaban 5 MG tablets,dose pack 5 mg PO BID sodium bicarbonate 650 MG tablet 650 mg PO DAILY furosemide 40 MG tablet 40 mg PO DAILY Qty: 30 0RF sulfamethoxazole-trimethoprim 1 EACH tablet 1 each PO BID Qty: 14 0RF Referrals Follow up/Referrals: Provider,Referral, [Primary Care Provider] - See instructions Chay Arreola DO [Staff Physician] - See instructions Activity Restrictions/Add. Instructions Additional Instructions/Restrictions: As we discussed you need to follow-up with your scalp treatment specialist as soon as you are able to get an appointment. I have referred you to a primary care physician here in [facility] but please try to establish care with PCP if that is not suitable as soon as possible. If you have any continued new or worsening signs or symptoms follow-up with your scalp treatment specialist or return to the ER as needed. Clinical Impressions Clinical Impression: Bilateral edema of lower extremity, Chronic CHF (congestive heart failure) Print Language Print Language: Urdu Discharge ED Provider: Carmelina Gomez HPI <RICCO Morin - Last Filed: 07/09/24 19:08> General Chief Complaint: Shortness of Breath/Dyspnea Stated Complaint: both swollen and painful,CHF Time Seen by Provider: 07/09/24 16:02 History of Present Illness HPI narrative: Patient presents initially with a chief complaint of bilateral lower extremity swelling pain and increasing shortness of breath. Patient reports that her symptoms have been progressive over the last year however over the last 3 days both of her lower extremities seem to have gotten more swollen and more painful. She denies any chest pain fever chills hemoptysis hematochezia melena nausea vomiting diarrhea. Patient reports she has difficulty lying flat. She does have a known history of CHF and obstructive sleep apnea and follows with cardiology in [place]. Patient does not currently have a PCP. Related Data Home Medications ?Medication ?Instructions ?Recorded ?Confirmed apixaban 5 mg (74 tabs) tablets in 5 mg PO BID pe 08/14/21 08/14/21 a dose pack aspirin 81 mg chewable tablet 81 mg PO DAILY CAD 08/14/21 08/14/21 atorvastatin 40 mg tablet 40 mg PO HS hld 08/14/21 08/14/21 bupropion HCl 300 mg 24 hr tablet, 300 mg PO DAILY Depression 08/14/21 08/14/21 extended release buspirone 5 mg tablet 5 mg PO TID Anxiety 08/14/21 08/14/21 citalopram 20 mg tablet 20 mg PO DAILY . 08/14/21 08/14/21 furosemide 40 mg tablet 40 mg PO DAILY chf 08/14/21 08/14/21 glipizide 10 mg tablet, extended 10 mg PO DAILY Diabetes 08/14/21 08/14/21 release 24 hr insulin glargine 100 unit/mL (3 75 units SQ AM Diabetes 08/14/21 08/14/21 mL) subcutaneous pen loratadine 10 mg capsule 10 mg PO DAILY Allergy symptoms 08/14/21 08/14/21 metformin 1,000 mg tablet 1,000 mg PO BID Diabetes 08/14/21 08/14/21 metoprolol succinate 25 mg 25 mg PO DAILY htn 08/14/21 08/14/21 tablet,extended release 24 hr nicotine 21 mg/24 hr daily 21 mg transdermal DAILY smoking 08/14/21 08/14/21 transdermal patch cessation omeprazole 40 mg capsule,delayed 40 mg PO DAILY GERD 08/14/21 08/14/21 release prazosin 2 mg capsule 2 mg PO HS . 08/14/21 08/14/21 risperidone 1 mg tablet 1 mg PO HS sleep 08/14/21 08/14/21 ropinirole 1 mg tablet 1 mg PO HS rls 08/14/21 08/14/21 sodium bicarbonate 650 mg tablet 650 mg PO DAILY Supplement 08/14/21 08/14/21 tiotropium 2.5 mcg-olodaterol 2.5 2 puff inhalation DAILY COPD 08/14/21 08/14/21 mcg/actuation mist for inhalation trazodone 100 mg tablet 100 mg PO HS sleep 08/14/21 08/14/21 Previous Rx's ?Medication ?Instructions ?Recorded furosemide 40 mg tablet 40 mg PO DAILY #30 tabs 08/15/21 sulfamethoxazole 800 1 each PO BID #14 tabs 08/15/21 mg-trimethoprim 160 mg tablet Allergies Allergy/AdvReac Type Severity Reaction Status Date / Time No Known Allergies Allergy Verified 08/14/21 01:58 [facility] <RICCO Morin - Last Filed: 07/09/24 19:08> [facility] Disclaimer: The information contained in this section may have been updated after the patient was seen, as this information can be updated by other users. Social History Smoking Status: Former smoker alcohol intake: never current occupational status: disabled Travel in the last 8 weeks?: None household members: significant other and children housing: house caffeine: Yes Have you lived/traveled outside [place] in past 30 days?: No Contact w/someone who lives/traveled outside US past 30 days?: No Exposure to someone with infectious disease in past 14 days?: No Do you have a fever (greater than 100.4 F or 38 C)?: No Have you tested positive for COVID-19?: No Exposed to someone with COVID-19 in past 14 days?: No Do you have a sore throat?: No Do you have a cough?: No Do you have any weakness?: No Do you have any diarrhea?: No Are you experiencing any unusual bleeding?: No Do you have any muscle aches/pain?: No Do you have any abdominal pain?: No Are you experiencing loss of taste or smell?: No Other Medical History Have you received the Flu Vaccine for this season: No Have you received the Pneumonia Vaccine: No <RICOC Morin - Last Filed: 07/09/24 19:08> ROS Obtained: Yes Systems reviewed as appropriate & no additional complaints except as documented Physical Exam <RICCO Morin - Last Filed: 07/09/24 19:08> General General appearance: alert and in no apparent distress Respiratory Respiratory exam: Present normal lung sounds bilaterally Cardiovascular Cardiovascular exam: Present regular rate Neurological Exam Neurological exam: Present alert and oriented X3 HEART Score <RICCO Morin - Last Filed: 07/09/24 19:08> HEART Score HEART Score assessment performed?: Yes History (anamnesis): Slightly suspicious ECG: Non-specific disturbance Age: 45-65 years Risk factors: 3 or more risk factors Troponin: </= normal limit HEART Score: 4 <Carmelina Gomez MD - Last Filed: 07/09/24 17:45> HEART Score HEART Score: 4 Procedures <Carmelina Gomez MD - Last Filed: 07/09/24 17:45> Miscellaneous Procedure Procedure Performed: Structures identified Common femoral veins and bilaterally Findings complete compression of bilateral common femoral veins normal augmentation bilaterally Impression no evidence of proximal bilateral DVT The study was performed by me and I personally interpreted all images and videos based on my clinical judgment these images were adequate and did not necessitate further imaging Limited cardiac ultrasound Indication: Dyspnea Identified structures: The heart was visualized in the parasternal long axis, parastenal short axis, apical four chamber and subxyphiod views. The IVC was visualized in the short axis and long axis at its entry into the right atrium. Findings: LVEF is normal no evidence of any severe right heart strain pericardial effusion or IVC plethora Impression: No evidence of definitive abnormality on limited ultrasound of the heart Images were saved to permanent archive The study was technically adequate CPT: 71591-72 This study was performed by me, and I personally interpreted all images/videos. Based on my clinical judgement, these images were adequate and did not necessitate further imaging. Critical Care <RICCO Morin - Last Filed: 07/09/24 19:08> Critical Care Time Critical Care Time: Yes Attestation: On 07/09/24, the high probability of a clinically significant, sudden or life threatening deterioration of the following system(s) required my full and direct attention, intervention and personal management. The time I documented below is in addition to time spent performing reported procedures but includes the following listed in this critical care notation. Total Time Total Critical Care Time: 35 Medical Decision Making <RICCO Morin - Last Filed: 07/09/24 19:08> Medical Records Medical records reviewed: Yes I reviewed the patient's medical records. Erasmo Inquiry Pt receiving controlled substance: No Vital Signs Vital Signs: 07/09/24 16:07 07/09/24 16:30 07/09/24 17:00 Temperature 98.6 F Temperature Source Oral Pulse Rate 93 H 99 H Pulse Rate [Apical] 100 H Respiratory Rate 20 Blood Pressure 130/83 146/78 H Blood Pressure [Right Arm] 166/92 H Blood Pressure Mean [Right Arm] 116 Blood Pressure Source [Right Arm] Automatic Cuff Blood Pressure Position [Right Arm] Sitting 02 Sat by Pulse Oximetry 96 93 L 95 Oxygen Delivery Method Room Air Room Air Room Air Lab Data Lab results reviewed: Yes I reviewed the patient's lab results. Labs: Lab Results 07/09/24 16:10: WBC 11.1 H, RBC 4.36, Hgb 11.9 L, Hct 36.0 L, MCV 82.6, MCH 27.3, MCHC 33.1, RDW 13.6, Plt Count 318, MPV 9.7, Neut % (Auto) 66.9, Lymph % (Auto) 19.0, Gibson % (Auto) 7.9, Eos % (Auto) 5.0, Baso % (Auto) 0.6, Neut # (Auto) 7.4, Lymph # (Auto) 2.1, Gibson # (Auto) 0.9, Eos # (Auto) 0.6 H, Baso # (Auto) 0.1, PT 9.6 L, INR 0.84 L, D-Dimer 0.88 H, Sodium 133 L, Potassium 4.3, Chloride 101, Carbon Dioxide 26, Anion Gap 10.3, BUN 23 H, Creatinine 0.80, Estimated Creat Clear 61, Estimated GFR 74, Est GFR ( Amer) 89, Glucose 390 H, Calcium 9.0, Magnesium 1.7, Total Bilirubin 0.2, AST 31, ALT 34, Alkaline Phosphatase 332 H, Troponin I < 0.01, NT-Pro-B Natriuret Pep 168 H, Total Protein 6.5, Albumin 3.7, Globulin 2.8, Albumin/Globulin Ratio 1.3, TSH 0.83, F ree T4 Index 3.0 L, Thyroxine (T4) 8.7, T3 Uptake 34, HCV Ab HERMAN w/Rflx PCR Qn Negative, HIV Ag/Ab Combo Qual Negative 07/09/24 17:28: Urine Color Yellow, Urine Appearance Clear, Urine pH 7.5, Ur Specific Gaylord 1.015, Urine Protein 1+ A, Urine Glucose (UA) 3+, Urine Ketones Negative, Urine Blood Negative, Urine Nitrate Negative, Urine Bilirubin Negative, Urine Urobilinogen 0.2, Ur Leukocyte Esterase Negative, Urine RBC Occasional, Urine WBC 3-5, Ur Squamous Epith Cells 5-10, Urine Bacteria Trace, Urine Yeast Occasional 07/09/24 16:10 07/09/24 16:10 Response Orders (Tests/Meds): ED MEDICATIONS Generic Name Dose Route Start Last Admin Trade Name Freq PRN Reason Stop Dose Admin Sodium Chloride 10 ml 07/09/24 17:57 07/09/24 17:58 Sodium Chloride 0.9% 10ml Syr (Rad Only) IV 08/08/24 17:56 10 ml NEEDED PRN Administration Maintain IV Site Discontinued Medications Generic Name Dose Route Start Last Admin Trade Name Freq PRN Reason Stop Dose Admin Acetaminophen 1,000 mg 07/09/24 16:10 07/09/24 16:20 Acetaminophen 500mg Tab PO 07/09/24 16:11 1,000 mg ONCE ONE Administration Iopamidol 75 ml 07/09/24 17:57 07/09/24 17:58 Iopamidol-370 (76%);100ml Bottle IV 07/09/24 17:58 75 ml ONCE ONE Administration Ketorolac Tromethamine 15 mg 07/09/24 17:17 07/09/24 17:43 Ketorolac 30mg/Ml Vial IV 07/09/24 17:18 15 mg ONCE ONE Administration ORDERS Category Date Time Status CT abdomen pelvis w con Stat Cat Scan 07/09/24 17:42 Completed Chest XR 2 view (NOT portable) [XR chest 2V] Stat Exams 07/09/24 16:11 Completed POCUS Point of Care (ER Only) Stat Exams 07/09/24 17:31 Ordered BNP [NT Pro Brain Natriuretic Pep.] Stat Lab 07/09/24 16:10 Results CBC w/Auto Diff [Complete Blood Count Auto Diff] Stat Lab 07/09/24 16:10 Completed CMP [Comprehensive Metabolic Panel] Stat Lab 07/09/24 16:10 Results D-Dimer Stat Lab 07/09/24 16:10 Completed HIV Combo Stat Lab 07/09/24 16:10 Completed Hepatitis C Ab Qual. W/ RFX Stat Lab 07/09/24 16:10 Completed INR [Prothrombin Time INR] Stat Lab 07/09/24 16:10 Completed Magnesium Stat Lab 07/09/24 16:10 Results Procalcitonin Stat Lab 07/09/24 16:10 Results Thyroid Panel Stat Lab 07/09/24 16:10 Completed Trop I [Troponin I] Stat Lab 07/09/24 16:10 Results Troponin I Q3H Lab 07/09/24 19:15 Ordered Troponin I Q3H Lab 07/09/24 22:15 Ordered UA [Urinalysis and Microscopic] Stat Lab 07/09/24 17:28 Completed MDM Narrative Medical Decision Narrative: In summary patient is a 59-year-old female who presents to the emergency department for evaluation of bilateral lower extremity pain and swelling along with dyspnea. Patient is initially slightly hypertensive with a blood pressure 166/92 heart rate 100 with sinus rhythm on the bedside monitor breathing 20 times a minute satting at 96% on room air upon arrival, afebrile at 98.6. Physical exam is remarkable for a well-nourished well-developed morbidly obese, with a BMI of 49, 59-year-old female who otherwise is in no acute distress. Breath sounds clear and equal bilaterally to the bases without adventitious sounds increased work of breathing or accessory muscle use. Abdomen is distended but soft without rebound or guarding or rigidity. Normal bowel sounds. The bilateral lower extremities show 3+ pitting edema to the level of the thigh however there is no induration erythema ecchymosis. There is good cap refill she is neurovascular intact distally.. Differential diagnosis includes CHF exacerbation versus infection versus benign peripheral edema versus peripheral vascular disease etc. Initial workup will be conducted with hematologic labs twelve-lead EKG plain film chest x-ray CT scan abdomen pelvis POCUS. Initial interventions include Tylenol Toradol continuous cardiac monitoring and pulse oximetry. Initial workup reviewed by me and patient's white count 11.1 hemoglobin and hematocrit 11.9 and 36.0 with an absolute neutrophil count of 7.4, INR 0.84, and D-dimer 0.88 and thrombus is excluded by years criteria, serum glucose is 390 alk phos is 322 NT proBNP is 168 urinalysis shows 1+ protein 3+ glucose ketone nitrate and leukocyte Estrace negative and POCUS does not reveal any evidence of proximal thrombus in the lower extremities bilaterally and heart function is good as well. Upon repeat evaluation patient remains satting at 95% on room air and is hemodynamically stable. Given this we have essentially ruled out any serious or life-threatening emergency condition and while there remains diagnostic uncertainty patient is stable for discharge with close follow-up with her scalp treatment specialist. We have given the patient a primary care referral to Dr. Arreola. If patient wishes to seek primary care closer to home she certainly can. The patient has continued new or worsening signs or symptoms follow-up in the ER as needed. <Carmelina Gomez MD - Last Filed: 07/09/24 17:45> Vital Signs Vital Signs: 07/09/24 16:07 07/09/24 16:30 07/09/24 17:00 Temperature 98.6 F Temperature Source Oral Pulse Rate 93 H 99 H Pulse Rate [Apical] 100 H Respiratory Rate 20 Blood Pressure 130/83 146/78 H Blood Pressure [Right Arm] 166/92 H Blood Pressure Mean [Right Arm] 116 Blood Pressure Source [Right Arm] Automatic Cuff Blood Pressure Position [Right Arm] Sitting 02 Sat by Pulse Oximetry 96 93 L 95 Oxygen Delivery Method Room Air Room Air Room Air Lab Data Labs: Lab Results 07/09/24 16:10: WBC 11.1 H, RBC 4.36, Hgb 11.9 L, Hct 36.0 L, MCV 82.6, MCH 27.3, MCHC 33.1, RDW 13.6, Plt Count 318, MPV 9.7, Neut % (Auto) 66.9, Lymph % (Auto) 19.0, Gibson % (Auto) 7.9, Eos % (Auto) 5.0, Baso % (Auto) 0.6, Neut # (Auto) 7.4, Lymph # (Auto) 2.1, Gibson # (Auto) 0.9, Eos # (Auto) 0.6 H, Baso # (Auto) 0.1, PT 9.6 L, INR 0.84 L, D-Dimer 0.88 H, Sodium 133 L, Potassium 4.3, Chloride 101, Carbon Dioxide 26, Anion Gap 10.3, BUN 23 H, Creatinine 0.80, Estimated Creat Clear 61, Estimated GFR 74, Est GFR ( Amer) 89, Glucose 390 H, Calcium 9.0, Magnesium 1.7, Total Bilirubin 0.2, AST 31, ALT 34, Alkaline Phosphatase 332 H, Troponin I < 0.01, NT-Pro-B Natriuret Pep 168 H, Total Protein 6.5, Albumin 3.7, Globulin 2.8, Albumin/Globulin Ratio 1.3, TSH 0.83, F ree T4 Index 3.0 L, Thyroxine (T4) 8.7, T3 Uptake 34, HCV Ab HERMAN w/Rflx PCR Qn Negative, HIV Ag/Ab Combo Qual Negative 07/09/24 17:28: Urine Color Yellow, Urine Appearance Clear, Urine pH 7.5, Ur Specific Gaylord 1.015, Urine Protein 1+ A, Urine Glucose (UA) 3+, Urine Ketones Negative, Urine Blood Negative, Urine Nitrate Negative, Urine Bilirubin Negative, Urine Urobilinogen 0.2, Ur Leukocyte Esterase Negative, Urine RBC Occasional, Urine WBC 3-5, Ur Squamous Epith Cells 5-10, Urine Bacteria Trace, Urine Yeast Occasional Response Orders (Tests/Meds): ED MEDICATIONS Generic Name Dose Route Start Last Admin Trade Name Freq PRN Reason Stop Dose Admin Sodium Chloride 10 ml 07/09/24 17:57 07/09/24 17:58 Sodium Chloride 0.9% 10ml Syr (Rad Only) IV 08/08/24 17:56 10 ml NEEDED PRN Administration Maintain IV Site Discontinued Medications Generic Name Dose Route Start Last Admin Trade Name Freq PRN Reason Stop Dose Admin Acetaminophen 1,000 mg 07/09/24 16:10 07/09/24 16:20 Acetaminophen 500mg Tab PO 07/09/24 16:11 1,000 mg ONCE ONE Administration Iopamidol 75 ml 07/09/24 17:57 07/09/24 17:58 Iopamidol-370 (76%);100ml Bottle IV 07/09/24 17:58 75 ml ONCE ONE Administration Ketorolac Tromethamine 15 mg 07/09/24 17:17 07/09/24 17:43 Ketorolac 30mg/Ml Vial IV 07/09/24 17:18 15 mg ONCE ONE Administration ORDERS Category Date Time Status CT abdomen pelvis w con Stat Cat Scan 07/09/24 17:42 Completed Chest XR 2 view (NOT portable) [XR chest 2V] Stat Exams 07/09/24 16:11 Completed POCUS Point of Care (ER Only) Stat Exams 07/09/24 17:31 Ordered BNP [NT Pro Brain Natriuretic Pep.] Stat Lab 07/09/24 16:10 Results CBC w/Auto Diff [Complete Blood Count Auto Diff] Stat Lab 07/09/24 16:10 Completed CMP [Comprehensive Metabolic Panel] Stat Lab 07/09/24 16:10 Results D-Dimer Stat Lab 07/09/24 16:10 Completed HIV Combo Stat Lab 07/09/24 16:10 Completed Hepatitis C Ab Qual. W/ RFX Stat Lab 07/09/24 16:10 Completed INR [Prothrombin Time INR] Stat Lab 07/09/24 16:10 Completed Magnesium Stat Lab 07/09/24 16:10 Results Procalcitonin Stat Lab 07/09/24 16:10 Results Thyroid Panel Stat Lab 07/09/24 16:10 Completed Trop I [Troponin I] Stat Lab 07/09/24 16:10 Results Troponin I Q3H Lab 07/09/24 19:15 Ordered Troponin I Q3H Lab 07/09/24 22:15 Ordered UA [Urinalysis and Microscopic] Stat Lab 07/09/24 17:28 Completed
--- NOTE | 2024-07-09 16:03 | ECG_ITS ---
APPROVED REPORT Exam: Resting ECG HR:98 bpm ECG Measurements Heart Rate 98 AXES MA 135 P 55 QRSd 89 QRS 28 QT 333 T 50 QTc 389 Conclusion SINUS RHYTHM NORMAL ECG UNCONFIRMED REPORT Electronically signed by : Alfredo Gomez, 07/09/2024 23:08:42
[2024-07-09 16:07] VITALS: BP 166/92; PULSE 100; RESP 20; TEMP 37; O2SAT 96; BMI 49.7
--- OUTSIDE RECORDS SUMMARY | 2024-07-09 16:08 | XMS_ITS | Data Portability ---
Author Organization [facility] & BIBI Martin ADMIN Address [address] [place] [id number] Care Team Providers Care Ceiling Insulation Blower Name Role Phone JULIO CHERY Primary Care Provider Assessment No assessment recorded. Plan of Treatment Reminders Order Date Submit Date Provider Last Modified By Organization Details Last Modified Time Details Appointments None recorded. Lab HbA1c (hemoglobin A1c), blood 2023 [facility] (Laboratory), [address] [place], [address], 17:01:19 CMP, serum or plasma 2023 [facility] (Laboratory), [address] [place], [address], 4 17:00:09 magnesium, serum or plasma 2023 [facility] (Laboratory), [address] [place], [address], 4 17:00:11 CBC w/ auto diff 2023 [facility] (Laboratory), [address] [place], [address], 4 16:51:22 vitamin B12 + folate, serum or blood [address] (Laboratory), [address] [place], [address], 4 22:14:19 magnesium, serum or plasma 2023 [facility] (Laboratory), [address] [place], [address], 4 18:43:54 lipid panel, serum 2023 [facility] (Laboratory), [address] [place], [address], 4 18:43:45 hemoglobin A1c + average glucose, QN, blood [address] (Laboratory), [address] [place], [address], 4 22:13:33 CMP, serum or plasma 2023 024 [facility] (Laboratory), [address] [place], [address], 4 18:43:39 CBC w/ auto diff 2023 024 [facility] (Laboratory), [address] [place], [address], 4 18:05:25 TSH, serum or plasma 2023 024 [facility] (Laboratory), [address] [place], [address], 4 18:43:27 CMP, serum or plasma - for CT 2023 024 [facility] (Scheduling), [address] [place], [address], 4 14:13:20 CMP, serum or plasma [address] (Laboratory), [address] [place], [address], 4 22:14:53 CBC w/ auto diff 2023 024 [facility] (Laboratory), [address] [place], [address], 4 12:58:02 TSH, serum or plasma 2023 024 [facility] (Laboratory), [address] [place], [address], 4 13:32:33 hemoglobin A1c + average glucose, QN, blood 2023 024 [facility] (Laboratory), [address] [place], [address], 4 11:37:08 lipid panel, serum 2023 024 [email or web address] [facility] (Laboratory), [address] [place], [address], 4 10:51:29 magnesium, serum or plasma 2023 024 [facility] (Laboratory), [address] [place], [address], 4 14:14:27 Referral None recorded. Procedures None recorded. Surgeries None recorded. Imaging CT, chest, w/ contrast 2023 024 [email or web address] [facility] (Scheduling), [address] [place], [address], 4 08:17:48 Medication Orders lisinopril 20 mg tablet 2023 024 [facility] #[id number], [address], [place], [id number], 4 08:56:51 doxycycline hyclate 100 mg capsule 2023 024 [facility] #21296, [address], [place], [id number], 14:03:03 Hibiclens 4 % topical liquid 2023 [facility] #16825, [address] [place], [id number], 4 14:02:50 Mounjaro 7.5 mg/0.5 mL subcutaneou s pen injector 2023 [facility] #44652, [address] [place], [id number], 14:33:43 glipizide ER 10 mg tablet, extended release 24 hr 2023 [facility] #78865, [address], [place], [id number], 10:48:40 Patient TargetsNo targets recorded. Patient Instructions Encounter Date Encounter Id Patient Instructions Last Modified By Organization Details Last Modified Time 07/24/2023 [id number] diabetes - high blood sugar [place] [facility] [place] available 07/24/2023 10:49:13 hypoglycemia [place] [facility] [place] available 07/24/2023 10:49:13 diabetes - monitoring blood sugars [place] [facility] [place] available 07/24/2023 10:49:13 diabetes, preventing complications education [facility] [place] available 07/24/2023 10:49:13 type 2 diabetes education [facility] [place] available 07/24/2023 10:49:13 Reason for Referral None Reported. Results Created Date Observation Date Name Description Value Unit Range Abnormal Flag Note LastModifiedBy Organization Detail LastModifiedTime 06/27/1906/27/2023 gluco se, jonathane quique k, blood Blood Glucose: mg/dl 110 Not Available [facility] [address] [place], [address], 06/27/2023 11:44:29 06/27/19 24 06/27/2023 urina lysis , dipst ick Leukocytes (reference range) negati ve Not Available [address] [place], [address], 06/27/2023 11:18:52 06/27/19 24 06/27/2023 urina lysis , dipst ick Nitrite (reference range:) negati ve Not Available [address] [place], [address], 06/27/2023 11:18:52 06/27/19 24 06/27/2023 urina lysis , dipst ick Urobilinogen (reference range) 0.2 Not Available [address] [place], [address], 06/27/2023 11:18:52 06/27/19 24 06/27/2023 urina lysis , dipst ick Protein (reference range) negati ve Not Available [address] [place], [address], 06/27/2023 11:18:52 06/27/19 24 06/27/2023 urina lysis , dipst ick pH (reference range 5-8.5) 5.0 Not Available [address] [place], [address], 06/27/2023 11:18:52 06/27/19 24 06/27/2023 urina lysis , dipst ick Blood (reference range:) negati ve Not Available [address] [place], [address], 06/27/2023 11:18:52 06/27/19 24 06/27/2023 urina lysis , dipst ick Specific Martin (reference range) 1.010 Not Available [address] [place], [address], 06/27/2023 11:18:52 06/27/19 24 06/27/2023 urina lysis , dipst ick Ketone (reference range) modera te Not Available [address] [place], [address], 06/27/2023 11:18:52 06/27/19 24 06/27/2023 urina lysis , dipst ick Bilirubin (reference range) negati ve Not Available [address] [place], [address], 06/27/2023 11:18:52 06/27/19 24 06/27/2023 urina lysis , dipst ick Glucose (reference range) 1000 Not Available [address] [place], [address], 06/27/2023 11:18:52 06/27/19 24 06/27/2023 urina lysis , dipst ick Color (reference range: yellow-brown ) Pale Yellow Not Available [address] [place], [address], 06/27/2023 11:18:52 07/24/19 24 07/24/2023 CBC AUTO W DIFF WBC 8.9 10 4.5-11 .5 Not Available [facility] (Lab Registration) [address] [place], [address], 07/24/2023 12:58:02 07/24/19 24 07/24/2023 CBC AUTO W DIFF RBC 4.97 10 4.25-5 .57 Not Available [facility] (Lab Registration) [address] [place], [address], 07/24/2023 12:58:02 07/24/19 24 07/24/2023 CBC AUTO W DIFF HGB 13.7 g/dL 12.0-1 5.7 Not Available [facility] (Lab Registration) [address] [place], [address], 07/24/2023 12:58:02 07/24/19 24 07/24/2023 CBC AUTO W DIFF HCT 41.3 % 36.0-4 7.0 Not Available [facility] (Lab Registration) [address] [place], [address], 07/24/2023 12:58:02 07/24/19 24 07/24/2023 CBC AUTO W DIFF MCV 83.1 fL 80-95 Not Available [facility] (Lab Registration) [address] [place], [address], 07/24/2023 12:58:02 07/24/19 24 07/24/2023 CBC AUTO W DIFF MCH 27.6 pg 27.0-3 4.0 Not Available [facility] (Lab Registration) [address] [place], [address], 07/24/2023 12:58:02 07/24/19 24 07/24/2023 CBC AUTO W DIFF MCHC 33.2 g/dL 32.0-3 6.0 Not Available [facility] (Lab Registration) [address] [place], [address], 07/24/2023 12:58:02 07/24/19 24 07/24/2023 CBC AUTO W DIFF platelet count 322 10 150-45 0 Not Available [facility] (Lab Registration) [address] [place], [address], 07/24/2023 12:58:02 07/24/19 24 07/24/2023 CBC AUTO W DIFF RDW 13.5 % 12.3-1 5.1 Not Available [facility] (Lab Registration) [address] [place], [address], 07/24/2023 12:58:02 07/24/19 24 07/24/2023 CBC AUTO W DIFF MPV 10.1 fL 7.4-10 .4 Not Available [facility] (Lab Registration) [address] [place], [address], 07/24/2023 12:58:02 07/24/19 24 07/24/2023 CBC AUTO W DIFF granulocyte% 68.7 % 40-75 Not Available [facility] (Lab Registration) [address] [place], [address], 07/24/2023 12:58:02 07/24/19 24 07/24/2023 CBC AUTO W DIFF lymphocyte% 20.9 % 15-57 Not Available [facility] (Lab Registration) [address] [place], [address], 07/24/2023 12:58:02 07/24/19 24 07/24/2023 CBC AUTO W DIFF monocyte% 6.1 % 4.0-12 .0 Not Available [facility] (Lab Registration) [address] [place], [address], 07/24/2023 12:58:02 07/24/19 24 07/24/2023 CBC AUTO W DIFF eosinophil% 3.6 % 0.0-4. 0 Not Available [facility] (Lab Registration) [address] [place], [address], 07/24/2023 12:58:02 07/24/19 24 07/24/2023 CBC AUTO W DIFF basophil% 0.3 % 0.0-1. 0 Not Available [facility] (Lab Registration) [address] [place], [address], 07/24/2023 12:58:02 07/24/19 24 07/24/2023 CBC AUTO W DIFF immature granulocytes % 0.4 % 0.0-0. 8 Not Available [facility] (Lab Registration) [address] [place], [address], 07/24/2023 12:58:02 07/24/19 24 07/24/2023 CBC AUTO W DIFF granulocyte# 6.13 10 Not Available [facility] (Lab Registration) [address] [place], [address], 07/24/2023 12:58:02 07/24/19 24 07/24/2023 CBC AUTO W DIFF lymphocyte# 1.86 10 Not Available [facility] (Lab Registration) [address], [place], [address], 07/24/2023 12:58:02 07/24/19 24 07/24/2023 CBC AUTO W DIFF monocyte# 0.54 10 Not Available [facility] (Lab Registration) [address] [place], [address], 07/24/2023 12:58:02 07/24/19 24 07/24/2023 CBC AUTO W DIFF eosinophil# 0.32 10 Not Available [facility] (Lab Registration) [address] [place], [address], 07/24/2023 12:58:02 07/24/19 24 07/24/2023 CBC AUTO W DIFF basophil# 0.03 10 Not Available [facility] (Lab Registration) [address] [place], [address], 07/24/2023 12:58:02 07/24/19 24 07/24/2023 CBC AUTO W DIFF immature granulocytes # 0.04 10 Not Available [facility] (Lab Registration) [address], [place], [address], 07/24/2023 12:58:02 07/24/19 24 07/24/2023 CBC AUTO W DIFF manual differential NO Not Available [facility] (Lab Registration) [address] [place], [address], 07/24/2023 12:58:02 07/24/19 24 07/24/2023 CBC AUTO W DIFF note Unles s other cruz noted testi ng perfo rmed at: [facility] [address] [facility] [place] [address] [phone] Branden hobbs MD CLIA: [id number] Not Available [facility] (Lab Registration) [address] [place], [address], 07/24/2023 12:58:02 07/24/19 24 07/24/2023 HEMOG LOBIN A1C glycosylated hemoglobin A1C 13.0 % 4.5-6. 2 high Not Available [facility] (Lab Registration) [address], [place], [address], 07/24/2023 13:15:02 07/24/19 24 07/24/2023 HEMOG LOBIN A1C estimated average glucose 326 mg/dL 82-131 high Not Available [facility] (Lab Registration) [address] [place], [address], 07/24/2023 13:15:02 07/24/19 24 07/24/2023 HEMOG LOBIN A1C note Unles s other cruz noted testi ng perfo rmed at: [facility] [address] [place] [address] [phone] Branden hobbs MD CLIA: [id number] Not Available [facility] (Lab Registration) [address] [place], [address], 07/24/2023 13:15:02 07/24/19 24 07/24/2023 THYRO ID STIMU LATIN G HORMO NE thyroid stimulating hormone 1.56 mIU/m L 0.34-4 .80 Not Available [facility] (Lab Registration) [address] [place], [address], 07/24/2023 13:32:33 07/24/19 24 07/24/2023 THYRO ID STIMU LATIN G HORMO NE note Unles s other cruz noted testi ng perfo rmed at: [facility] [address] [place] [phone] Branden hobbs MD CLIA: [id number] Not Available [facility] (Lab Registration) [address] [place], [address], 07/24/2023 13:32:33 07/24/19 24 07/24/2023 COMP METAB OLIC PANEL sodium 136 mmol/ L 136-14 5 Not Available [facility] (Lab Registration) [address] [place], [address], 07/24/2023 14:13:20 07/24/19 24 07/24/2023 COMP METAB OLIC PANEL potassium 4.5 mmol/ L 3.5-5. 1 Not Available [facility] (Lab Registration) [address] [place], [address], 07/24/2023 14:13:20 07/24/19 24 07/24/2023 COMP METAB OLIC PANEL chloride 97 mmol/ L 98-107 low Not Available [facility] (Lab Registration) [address] [place], [address], 07/24/2023 14:13:20 07/24/19 24 07/24/2023 COMP METAB OLIC PANEL carbon dioxide 28 mmol/ L 21-32 Not Available [facility] (Lab Registration) [address] [place], [address], 07/24/2023 14:13:20 07/24/19 24 07/24/2023 COMP METAB OLIC PANEL anion gap 11.0 Not Available [facility] (Lab Registration) [address] [place], [address], 07/24/2023 14:13:20 07/24/19 24 07/24/2023 COMP METAB OLIC PANEL glucose 531 mg/dL 70-110 critical high Not Available [facility] (Lab Registration) [address] [place], [address], 07/24/2023 14:13:20 07/24/19 24 07/24/2023 COMP METAB OLIC PANEL blood urea nitrogen 18 mg/dL 7-18 Not Available [facility] (Lab Registration) [address] [place], [address], 07/24/2023 14:13:20 07/24/19 24 07/24/2023 COMP METAB OLIC PANEL creatinine 1.0 mg/dL 0.6-1. 0 Not Available [facility] (Lab Registration) [address] [place], [address], 07/24/2023 14:13:20 07/24/19 24 07/24/2023 COMP METAB OLIC PANEL BUN/creatini ne ratio 18.0 ratio 9-21 Not Available [facility] (Lab Registration) [address] [place], [address], 07/24/2023 14:13:20 07/24/19 24 07/24/2023 COMP METAB OLIC PANEL estimated glom filtration rate 61 mL/mi n >60- Not Available [facility] (Lab Registration) [address] [place], [address], 07/24/2023 14:13:20 07/24/19 24 07/24/2023 COMP METAB OLIC PANEL total protein 7.0 g/dL 6.4-8. 2 Not Available [facility] (Lab Registration) [address] [place], [address], 07/24/2023 14:13:20 07/24/19 24 07/24/2023 COMP METAB OLIC PANEL albumin 3.8 g/dL 3.4-5. 0 Not Available [facility] (Lab Registration) [address] [place], [address], 07/24/2023 14:13:20 07/24/19 24 07/24/2023 COMP METAB OLIC PANEL calcium 9.7 mg/dL 8.5-10 .1 Not Available [facility] (Lab Registration) [address] [place], [address], 07/24/2023 14:13:20 07/24/19 24 07/24/2023 COMP METAB OLIC PANEL corrected calcium 9.9 mg/dL 8.5-10 .1 Not Available [facility] (Lab Registration) [address] [place], [address], 07/24/2023 14:13:20 07/24/19 24 07/24/2023 COMP METAB OLIC PANEL bilirubin total 0.3 mg/dL 0.4-1. 5 low Not Available [facility] (Lab Registration) [address], [place], [address], 07/24/2023 14:13:20 07/24/19 24 07/24/2023 COMP METAB OLIC PANEL AST (SGOT) 20 U/L 15-37 Not Available [facility] (Lab Registration) [address], [place], [address], 07/24/2023 14:13:20 07/24/19 24 07/24/2023 COMP METAB OLIC PANEL ALT (SGPT) 53 U/L 12-78 Not Available [facility] (Lab Registration) [address], [place], [address], 07/24/2023 14:13:20 07/24/19 24 07/24/2023 COMP METAB OLIC PANEL alk phosphatase 304 U/L 50-120 high Not Available [facility] (Lab Registration) [address], [place], [address], 07/24/2023 14:13:20 07/24/19 24 07/24/2023 COMP METAB OLIC PANEL note Unles s other cruz noted testi ng perfo rmed at: [facility] [address] [facility] [place] [address] [phone] Branden hobbs MD CLIA: [id number] Not Available [facility] (Lab Registration) [address], [place], [address], 07/24/2023 14:13:20 07/24/19 24 07/24/2023 LIPID PANEL triglyceride 172 mg/dL 20-200 The Natio nal [employer]ca t[employer] Progr am (NCEP ) has set the follo wing guide lines for Fasti ng Trigl yceri emerita: RANJITH L: <150 mg/dL BORDE RLINE HIGH: 150 - 199 mg/dL HIGH: 200 - 499 mg/dL VERY HIGH: > or =500 mg/dL Not Available [facility] (Lab Registration) [address] [place], [address], 07/24/2023 14:14:25 07/24/19 24 07/24/2023 LIPID PANEL cholesterol 96 mg/dL 0-200 The Natio nal [employer]ca tion Progr am (NCEP ) has set the follo wing guide lines for Fasti ng Chiara stero l: YVONNE ABLE: <200 mg/dL BORDE RLINE HIGH: 200 - 239 mg/dL HIGH: > or =240 mg/dL Not Available [facility] (Lab Registration) [address] [place], [address], 07/24/2023 14:14:25 07/24/19 24 07/24/2023 LIPID PANEL HDL cholesterol 53 mg/dL 60- low The Natio nal [employer]ca tion Progr am (NCEP ) has set the follo wing guide lines for Fasti ng HDL Chiara stero l: LOW HDL: <40 mg/dL RANJITH L: 40 - 60 mg/dL YVONNE ABLE: >60 mg/dL Not Available [facility] (Lab Registration) [address] [place], [address], 07/24/2023 14:14:25 07/24/19 24 07/24/2023 LIPID PANEL LDL calculated <10 mg/dL 100- low The Natio nal [employer]ca tion Progr am (NCEP ) has set the follo wing guide lines for Fasti ng LDL Chiara stero l: OPTIM AL: < 100 mg/dL LOW RISK: 100 - 129 mg/dL BORDE RLINE HIGH: 130 - 159 mg/dL HIGH: 160 - 189 mg/dL VERY HIGH: > or = 190 mg/dL Not Available [facility] (Lab Registration) [address] [place], [address], 07/24/2023 14:14:25 07/24/19 24 07/24/2023 LIPID PANEL chol/HDL ratio 2 ratio -5 Not Available [facility] (Lab Registration) [address] [place], [address], 07/24/2023 14:14:25 07/24/19 24 07/24/2023 LIPID PANEL note Unles s other cruz noted testi ng perfo rmed at: [facility] [address] [place] [address] [phone] Branden hobbs MD CLIA: [id number] Not Available [facility] (Lab Registration) [address] [place], [address], 07/24/2023 14:14:25 07/24/19 24 07/24/2023 MAGNE SIUM magnesium 2.3 mg/dL 1.8-2. 4 Not Available [facility] (Lab Registration) [address] [place], [address], 07/24/2023 14:14:27 07/24/19 24 07/24/2023 MAGNE SIUM note Unles s other cruz noted testi ng [facility] [address] [place] [address] [phone] Branden hobbs MD CLIA: [id number] Not Available [facility] (Lab Registration) [address] [place], [address], 07/24/2023 14:14:27 08/03/19 24 08/03/2023 COMP METAB OLIC PANEL sodium 136 mmol/ L 136-14 5 Not Available [facility] (Lab Registration) [address] [place], [address], 08/03/2023 09:50:49 08/03/19 24 08/03/2023 COMP METAB OLIC PANEL potassium 4.3 mmol/ L 3.5-5. 1 Not Available [facility] (Lab Registration) [address] [place], [address], 08/03/2023 09:50:49 08/03/19 24 08/03/2023 COMP METAB OLIC PANEL chloride 99 mmol/ L 98-107 Not Available [facility] (Lab Registration) [address] [place], [address], 08/03/2023 09:50:49 08/03/19 24 08/03/2023 COMP METAB OLIC PANEL carbon dioxide 28 mmol/ L 21-32 Not Available [facility] (Lab Registration) [address] [place], [address], 08/03/2023 09:50:49 08/03/19 24 08/03/2023 COMP METAB OLIC PANEL anion gap 9.0 Not Available [facility] (Lab Registration) [address] [place], [address], 08/03/2023 09:50:49 08/03/19 24 08/03/2023 COMP METAB OLIC PANEL glucose 413 mg/dL 70-110 high Not Available [facility] (Lab Registration) [address] [place], [address], 08/03/2023 09:50:49 08/03/19 24 08/03/2023 COMP METAB OLIC PANEL blood urea nitrogen 22 mg/dL 7-18 high Not Available [facility] (Lab Registration) [address] [place], [address], 08/03/2023 09:50:49 08/03/19 24 08/03/2023 COMP METAB OLIC PANEL creatinine 1.0 mg/dL 0.6-1. 0 Not Available [facility] (Lab Registration) [address] [place], [address], 08/03/2023 09:50:49 08/03/19 24 08/03/2023 COMP METAB OLIC PANEL BUN/creatini ne ratio 22.0 ratio 9-21 high Not Available [facility] (Lab Registration) [address] [place], [address], 08/03/2023 09:50:49 08/03/19 24 08/03/2023 COMP METAB OLIC PANEL estimated glom filtration rate 61 mL/mi n >60- Not Available [facility] (Lab Registration) [address] [place], [address], 08/03/2023 09:50:49 08/03/19 24 08/03/2023 COMP METAB OLIC PANEL total protein 6.8 g/dL 6.4-8. 2 Not Available [facility] (Lab Registration) [address] [place], [address], 08/03/2023 09:50:49 08/03/19 24 08/03/2023 COMP METAB OLIC PANEL albumin 3.3 g/dL 3.4-5. 0 low Not Available [facility] (Lab Registration) [address] [place], [address], 08/03/2023 09:50:49 08/03/19 24 08/03/2023 COMP METAB OLIC PANEL calcium 9.1 mg/dL 8.5-10 .1 Not Available [facility] (Lab Registration) [address] [place], [address], 08/03/2023 09:50:49 08/03/19 24 08/03/2023 COMP METAB OLIC PANEL corrected calcium 9.7 mg/dL 8.5-10 .1 Not Available [facility] (Lab Registration) [address] [place], [address], 08/03/2023 09:50:49 08/03/19 24 08/03/2023 COMP METAB OLIC PANEL bilirubin total 0.3 mg/dL 0.4-1. 5 low Not Available [facility] (Lab Registration) [address] [place], [address], 08/03/2023 09:50:49 08/03/19 24 08/03/2023 COMP METAB OLIC PANEL AST (SGOT) 20 U/L 15-37 Not Available [facility] (Lab Registration) [address] [place], [address], 08/03/2023 09:50:49 08/03/19 24 08/03/2023 COMP METAB OLIC PANEL ALT (SGPT) 41 U/L 12-78 Not Available [facility] (Lab Registration) [address] [place], [address], 08/03/2023 09:50:49 08/03/19 24 08/03/2023 COMP METAB OLIC PANEL alk phosphatase 246 U/L 50-120 high Not Available [facility] (Lab Registration) [address] [place], [address], 08/03/2023 09:50:49 08/03/19 24 08/03/2023 COMP METAB OLIC PANEL note Unles s other cruz noted testi ng perfo rmed at: [facility] rebecca [address] [place] [address] [phone] Branden hobbs MD CLIA: [id number] Not Available [facility] (Lab Registration) [address] [place], [address], 08/03/2023 09:50:49 09/17/19 24 09/17/2023 CBC AUTO W DIFF WBC 13.3 10 4.5-11 .5 high Not Available [facility] (Lab Registration) [address] [place], [address], 09/17/2023 18:05:25 09/17/19 24 09/17/2023 CBC AUTO W DIFF RBC 4.73 10 4.25-5 .57 Not Available [facility] (Lab Registration) [address] [place], [address], 09/17/2023 18:05:25 09/17/19 24 09/17/2023 CBC AUTO W DIFF HGB 13.1 g/dL 12.0-1 5.7 Not Available [facility] (Lab Registration) [address] [place], [address], 09/17/2023 18:05:25 09/17/19 24 09/17/2023 CBC AUTO W DIFF HCT 40.7 % 36.0-4 7.0 Not Available [facility] (Lab Registration) [address] [place], [address], 09/17/2023 18:05:25 09/17/19 24 09/17/2023 CBC AUTO W DIFF MCV 86.0 fL 80-95 Not Available [facility] (Lab Registration) [address] [place], [address], 09/17/2023 18:05:25 09/17/19 24 09/17/2023 CBC AUTO W DIFF MCH 27.7 pg 27.0-3 4.0 Not Available [facility] (Lab Registration) [address] [place], [address], 09/17/2023 18:05:25 09/17/19 24 09/17/2023 CBC AUTO W DIFF MCHC 32.2 g/dL 32.0-3 6.0 Not Available [facility] (Lab Registration) [address] [place], [address], 09/17/2023 18:05:25 09/17/19 24 09/17/2023 CBC AUTO W DIFF platelet count 404 10 150-45 0 Not Available [facility] (Lab Registration) [address] [place], [address], 09/17/2023 18:05:25 09/17/19 24 09/17/2023 CBC AUTO W DIFF RDW 13.0 % 12.3-1 5.1 Not Available [facility] (Lab Registration) [address] [place], [address], 09/17/2023 18:05:25 09/17/19 24 09/17/2023 CBC AUTO W DIFF MPV 9.4 fL 7.4-10 .4 Not Available [facility] (Lab Registration) [address], [place], [address], 09/17/2023 18:05:25 09/17/19 24 09/17/2023 CBC AUTO W DIFF granulocyte% 73.6 % 40-75 Not Available [facility] (Lab Registration) [address] [place], [address], 09/17/2023 18:05:25 09/17/19 24 09/17/2023 CBC AUTO W DIFF lymphocyte% 17.9 % 15-57 Not Available [facility] (Lab Registration) [address] [place], [address], 09/17/2023 18:05:25 09/17/19 24 09/17/2023 CBC AUTO W DIFF monocyte% 5.6 % 4.0-12 .0 Not Available [facility] (Lab Registration) [address] [place], [address], 09/17/2023 18:05:25 09/17/19 24 09/17/2023 CBC AUTO W DIFF eosinophil% 2.0 % 0.0-4. 0 Not Available [facility] (Lab Registration) [address] [place], [address], 09/17/2023 18:05:25 09/17/19 24 09/17/2023 CBC AUTO W DIFF basophil% 0.4 % 0.0-1. 0 Not Available [facility] (Lab Registration) [address] [place], [address], 09/17/2023 18:05:25 09/17/19 24 09/17/2023 CBC AUTO W DIFF immature granulocytes % 0.5 % 0.0-0. 8 Not Available [facility] (Lab Registration) [address] [place], [address], 09/17/2023 18:05:25 09/17/19 24 09/17/2023 CBC AUTO W DIFF granulocyte# 9.82 10 Not Available [facility] (Lab Registration) [address] [place], [address], 09/17/2023 18:05:25 09/17/19 24 09/17/2023 CBC AUTO W DIFF lymphocyte# 2.38 10 Not Available [facility] (Lab Registration) [address] [place], [address], 09/17/2023 18:05:25 09/17/19 24 09/17/2023 CBC AUTO W DIFF monocyte# 0.74 10 Not Available [facility] (Lab Registration) [address] [place], [address], 09/17/2023 18:05:25 09/17/19 24 09/17/2023 CBC AUTO W DIFF eosinophil# 0.27 10 Not Available [facility] (Lab Registration) [address] [place], [address], 09/17/2023 18:05:25 09/17/19 24 09/17/2023 CBC AUTO W DIFF basophil# 0.05 10 Not Available [facility] (Lab Registration) [address] [place], [address], 09/17/2023 18:05:25 09/17/19 24 09/17/2023 CBC AUTO W DIFF immature granulocytes # 0.06 10 Not Available [facility] (Lab Registration) [address] [place], [address], 09/17/2023 18:05:25 09/17/19 24 09/17/2023 CBC AUTO W DIFF manual differential NO Not Available [facility] (Lab Registration) [address] [place], [address], 09/17/2023 18:05:25 09/17/19 24 09/17/2023 CBC AUTO W DIFF note Unles s other cruz noted testi ng perfo rmed at: [facility] [address] [place], [place] [address] [phone] Branden hobbs MD CLIA: [id number] Not Available [facility] (Lab Registration) [address], [place], [address], 09/17/2023 18:05:25 09/17/19 24 09/17/2023 THYRO ID STIMU LATIN G HORMO NE thyroid stimulating hormone 1.09 mIU/m L 0.34-4 .80 Not Available [facility] (Lab Registration) [address], [place], [address], 09/17/2023 18:43:27 09/17/19 24 09/17/2023 THYRO ID STIMU LATIN G HORMO NE note Unles s other cruz noted testi ng perfo rmed at: [facility] [address] [place] [address] [phone] Branden hobbs MD CLIA: [id number] Not Available [facility] (Lab Registration) [address], [place], [address], 09/17/2023 18:43:27 09/17/19 24 09/17/2023 VITAM IN B12 vitamin B12 419 pg/mL 193-98 6 Not Available [facility] (Lab Registration) [address] [place], [address], 09/17/2023 18:43:38 09/17/19 24 09/17/2023 VITAM IN B12 folate (folic acid), serum 12.4 NG/mL 8.6-58 .9 Not Available [facility] (Lab Registration) [address] [place], [address], 09/17/2023 18:43:38 09/17/19 24 09/17/2023 VITAM IN B12 note Unles s other cruz noted testi ng perfo rmed at: [facility] [address] [place] [address] [phone] Branden hobbs MD CLIA: [id number] Not Available [facility] (Lab Registration) [address] [place], [address], 09/17/2023 18:43:38 09/17/19 24 09/17/2023 COMP METAB OLIC PANEL sodium 138 mmol/ L 136-14 5 Not Available [facility] (Lab Registration) [address] [place], [address], 09/17/2023 18:43:39 09/17/19 24 09/17/2023 COMP METAB OLIC PANEL potassium 4.2 mmol/ L 3.5-5. 1 Not Available [facility] (Lab Registration) [address] [place], [address], 09/17/2023 18:43:39 09/17/19 24 09/17/2023 COMP METAB OLIC PANEL chloride 100 mmol/ L 98-107 Not Available [facility] (Lab Registration) [address] [place], [address], 09/17/2023 18:43:39 09/17/19 24 09/17/2023 COMP METAB OLIC PANEL carbon dioxide 27 mmol/ L 21-32 Not Available [facility] (Lab Registration) [address] [place], [address], 09/17/2023 18:43:39 09/17/19 24 09/17/2023 COMP METAB OLIC PANEL anion gap 11.0 Not Available [facility] (Lab Registration) [address] [place], [address], 09/17/2023 18:43:39 09/17/19 24 09/17/2023 COMP METAB OLIC PANEL glucose 288 mg/dL 70-110 high Not Available [facility] (Lab Registration) [address] [place], [address], 09/17/2023 18:43:39 09/17/19 24 09/17/2023 COMP METAB OLIC PANEL blood urea nitrogen 20 mg/dL 7-18 high Not Available [facility] (Lab Registration) [address] [place], [address], 09/17/2023 18:43:39 09/17/19 24 09/17/2023 COMP METAB OLIC PANEL creatinine 1.1 mg/dL 0.6-1. 0 high Not Available [facility] (Lab Registration) [address] [place], [address], 09/17/2023 18:43:39 09/17/19 24 09/17/2023 COMP METAB OLIC PANEL BUN/creatini ne ratio 18.2 ratio 9-21 Not Available [facility] (Lab Registration) [address] [place], [address], 09/17/2023 18:43:39 09/17/19 24 09/17/2023 COMP METAB OLIC PANEL estimated glom filtration rate 59 mL/mi n >60- low Not Available [facility] (Lab Registration) [address] [place], [address], 09/17/2023 18:43:39 09/17/19 24 09/17/2023 COMP METAB OLIC PANEL total protein 7.0 g/dL 6.4-8. 2 Not Available [facility] (Lab Registration) [address] [place], [address], 09/17/2023 18:43:39 09/17/19 24 09/17/2023 COMP METAB OLIC PANEL albumin 3.3 g/dL 3.4-5. 0 low Not Available [facility] (Lab Registration) [address] [place], [address], 09/17/2023 18:43:39 09/17/19 24 09/17/2023 COMP METAB OLIC PANEL calcium 9.5 mg/dL 8.5-10 .1 Not Available [facility] (Lab Registration) [address] [place], [address], 09/17/2023 18:43:39 09/17/19 24 09/17/2023 COMP METAB OLIC PANEL corrected calcium 10.1 mg/dL 8.5-10 .1 Not Available [facility] (Lab Registration) [address], [place], [address], 09/17/2023 18:43:39 09/17/19 24 09/17/2023 COMP METAB OLIC PANEL bilirubin total 0.2 mg/dL 0.4-1. 5 low Not Available [facility] (Lab Registration) [address] [place], [address], 09/17/2023 18:43:39 09/17/19 24 09/17/2023 COMP METAB OLIC PANEL AST (SGOT) 17 U/L 15-37 Not Available [facility] (Lab Registration) [address] [place], [address], 09/17/2023 18:43:39 09/17/19 24 09/17/2023 COMP METAB OLIC PANEL ALT (SGPT) 29 U/L 12-78 Not Available [facility] (Lab Registration) [address] [place], [address], 09/17/2023 18:43:39 09/17/19 24 09/17/2023 COMP METAB OLIC PANEL alk phosphatase 232 U/L 50-120 high Not Available [facility] (Lab Registration) [address] [place], [address], 09/17/2023 18:43:39 09/17/19 24 09/17/2023 COMP METAB OLIC PANEL note Unles s other cruz noted testi ng perfo rmed at: [facility] [address] [employer] [place] [address] [phone] Branden hobbs MD CLIA: [id number] Not Available [facility] (Lab Registration) [address] [place], [address], 09/17/2023 18:43:39 09/17/19 24 09/17/2023 LIPID PANEL triglyceride 136 mg/dL 20-200 The Natio nal [employer]ca tion [employer]gr am (NCEP ) has set the follo wing guide lines for Fasti ng Trigl yceri emerita: RANJITH L: <150 mg/dL BORDE RLINE HIGH: 150 - 199 mg/dL HIGH: 200 - 499 mg/dL VERY HIGH: > or =500 mg/dL Not Available [facility] (Lab Registration) [address] [place], [address], 09/17/2023 18:43:45 09/17/19 24 09/17/2023 LIPID PANEL cholesterol 127 mg/dL 0-200 The Natio nal [employer] l [employer]ca tion Progr am (NJEP ) has set the follo wing guide lines for Fasti ng Chiara stero l: YVONNE ABLE: <200 mg/dL BORDE RLINE HIGH: 200 - 239 mg/dL HIGH: > or =240 mg/dL Not Available [facility] (Lab Registration) [address] [place], [address], 09/17/2023 18:43:45 09/17/19 24 09/17/2023 LIPID PANEL HDL cholesterol 65 mg/dL 60- The Natio nal [employer]ca tion Progr am (NCEP ) has set the follo wing guide lines for Fasti ng HDL Chiara stero l: LOW HDL: <40 mg/dL RANJITH L: 40 - 60 mg/dL YVONNE ABLE: >60 mg/dL Not Available [facility] (Lab Registration) [address] [place], [address], 09/17/2023 18:43:45 09/17/19 24 09/17/2023 LIPID PANEL LDL calculated 35 mg/dL 100- low The Natio nal [employer] l [employer]ca tion Progr am (NCEP ) has set the follo wing guide lines for Fasti ng LDL Chiara stero l: OPTIM AL: < 100 mg/dL LOW RISK: 100 - 129 mg/dL BORDE RLINE HIGH: 130 - 159 mg/dL HIGH: 160 - 189 mg/dL VERY HIGH: > or = 190 mg/dL Not Available [facility] (Lab Registration) [address] [place], [address], 09/17/2023 18:43:45 09/17/19 24 09/17/2023 LIPID PANEL chol/HDL ratio 2 ratio -5 Not Available [facility] (Lab Registration) [address] [place], [address], 09/17/2023 18:43:45 09/17/19 24 09/17/2023 LIPID PANEL note Unles s other cruz noted testi ng perfo rmed at: [facility] [address] [place] [address] [phone] Branden hobbs MD CLIA: [id number] Not Available [facility] (Lab Registration) [address] [place], [address], 09/17/2023 18:43:45 09/17/19 24 09/17/2023 MAGNE SIUM magnesium 2.0 mg/dL 1.8-2. 4 Not Available [facility] (Lab Registration) [address] [place], [address], 09/17/2023 18:43:54 09/17/19 24 09/17/2023 MAGNE SIUM note Unles s other cruz noted testi ng perfo rmed at: [facility] [address] [place] [address] [phone] Branden hobbs MD CLIA: [id number] Not Available [facility] (Lab Registration) [address] [place], [address], 09/17/2023 18:43:54 09/17/19 24 09/17/2023 HEMOG LOBIN A1C glycosylated hemoglobin A1C 11.0 % 4.5-6. 2 high Not Available [facility] (Lab Registration) [address] [place], [address], 09/17/2023 18:45:43 09/17/19 24 09/17/2023 HEMOG LOBIN A1C estimated average glucose 269 mg/dL 82-131 high Not Available [facility] (Lab Registration) [address] [place], [address], 09/17/2023 18:45:43 09/17/19 24 09/17/2023 HEMOG LOBIN A1C note Unles s other cruz noted testi ng perfo rmed at: [facility] [address] [place] [address] [phone] Branden hobbs MD CLIA: [id number] Not Available [facility] (Lab Registration) [address] [place], [address], 09/17/2023 18:45:43 12/25/19 24 12/25/2023 CBC AUTO W DIFF WBC 9.5 10 4.5-11 .5 Not Available [facility] (Lab Registration) [address] [place], [address], 12/25/2023 16:51:22 12/25/19 24 12/25/2023 CBC AUTO W DIFF RBC 4.75 10 4.25-5 .57 Not Available [facility] (Lab Registration) [address] [place], [address], 12/25/2023 16:51:22 12/25/19 24 12/25/2023 CBC AUTO W DIFF HGB 13.0 g/dL 12.0-1 5.7 Not Available [facility] (Lab Registration) [address] [place], [address], 12/25/2023 16:51:22 12/25/19 24 12/25/2023 CBC AUTO W DIFF HCT 39.1 % 36.0-4 7.0 Not Available [facility] (Lab Registration) [address] [place], [address], 12/25/2023 16:51:22 12/25/19 24 12/25/2023 CBC AUTO W DIFF MCV 82.3 fL 80-95 Not Available [facility] (Lab Registration) [address] [place], [address], 12/25/2023 16:51:22 12/25/19 24 12/25/2023 CBC AUTO W DIFF MCH 27.4 pg 27.0-3 4.0 Not Available [facility] (Lab Registration) [address] [place], [address], 12/25/2023 16:51:22 12/25/19 24 12/25/2023 CBC AUTO W DIFF MCHC 33.2 g/dL 32.0-3 6.0 Not Available [facility] (Lab Registration) [address] [place], [address], 12/25/2023 16:51:22 12/25/1912/25/2023 CBC AUTO W DIFF platelet count 295 10 150-45 0 Not Available [facility] (Lab Registration) [address] [place], [address], 12/25/2023 16:51:22 12/25/19 24 12/25/2023 CBC AUTO W DIFF RDW 13.7 % 12.3-1 5.1 Not Available [facility] (Lab Registration) [address] [place], [address], 12/25/2023 16:51:22 12/25/19 24 12/25/2023 CBC AUTO W DIFF MPV 10.0 fL 7.4-10 .4 Not Available [facility] (Lab Registration) [address] [place], [address], 12/25/2023 16:51:22 12/25/19 24 12/25/2023 CBC AUTO W DIFF granulocyte% 58.9 % 40-75 Not Available [facility] (Lab Registration) [address] [place], [address], 12/25/2023 16:51:22 12/25/19 24 12/25/2023 CBC AUTO W DIFF lymphocyte% 30.1 % 15-57 Not Available [facility] (Lab Registration) [address] [place], [address], 12/25/2023 16:51:22 12/25/19 24 12/25/2023 CBC AUTO W DIFF monocyte% 6.3 % 4.0-12 .0 Not Available [facility] (Lab Registration) [address] [place], [address], 12/25/2023 16:51:22 12/25/19 24 12/25/2023 CBC AUTO W DIFF eosinophil% 3.6 % 0.0-4. 0 Not Available [facility] (Lab Registration) [address] [place], [address], 12/25/2023 16:51:22 12/25/19 24 12/25/2023 CBC AUTO W DIFF basophil% 0.5 % 0.0-1. 0 Not Available [facility] (Lab Registration) [address] [place], [address], 12/25/2023 16:51:22 12/25/19 24 12/25/2023 CBC AUTO W DIFF immature granulocytes % 0.6 % 0.0-0. 8 Not Available [facility] (Lab Registration) [address] [place], [address], 12/25/2023 16:51:22 12/25/1912/25/2023 CBC AUTO W DIFF granulocyte# 5.62 10 Not Available [facility] (Lab Registration) [address] [place], [address], 12/25/2023 16:51:22 12/25/19 24 12/25/2023 CBC AUTO W DIFF lymphocyte# 2.87 10 Not Available [facility] (Lab Registration) [address] [place], [address], 12/25/2023 16:51:22 12/25/19 24 12/25/2023 CBC AUTO W DIFF monocyte# 0.60 10 Not Available [facility] (Lab Registration) [address], [place], [address], 12/25/2023 16:51:22 12/25/19 24 12/25/2023 CBC AUTO W DIFF eosinophil# 0.34 10 Not Available [facility] (Lab Registration) [address] [place], [address], 12/25/2023 16:51:22 12/25/19 24 12/25/2023 CBC AUTO W DIFF basophil# 0.05 10 Not Available [facility] (Lab Registration) [address] [place], [address], 12/25/2023 16:51:22 12/25/19 24 12/25/2023 CBC AUTO W DIFF immature granulocytes # 0.06 10 Not Available [facility] (Lab Registration) [address] [place], [address], 12/25/2023 16:51:22 12/25/19 24 12/25/2023 CBC AUTO W DIFF manual differential NO Not Available [facility] (Lab Registration) [address] [place], [address], 12/25/2023 16:51:22 12/25/19 24 12/25/2023 CBC AUTO W DIFF note Unles s other cruz noted testi ng perfo rmed at: [facility] [address] [facility] [place] [address] [phone] Branden hobbs MD CLIA: [id number] Not Available [facility] (Lab Registration) [address] [place], [address], 12/25/2023 16:51:22 12/25/19 24 12/25/2023 COMP METAB OLIC PANEL sodium 133 mmol/ L 136-14 5 low Not Available [facility] (Lab Registration) [address] [place], [address], 12/25/2023 17:00:09 12/25/1912/25/2023 COMP METAB OLIC PANEL potassium 4.2 mmol/ L 3.5-5. 1 Not Available [facility] (Lab Registration) [address] [place], [address], 12/25/2023 17:00:09 12/25/1912/25/2023 COMP METAB OLIC PANEL chloride 98 mmol/ L 98-107 Not Available [facility] (Lab Registration) [address] [place], [address], 12/25/2023 17:00:09 12/25/1912/25/2023 COMP METAB OLIC PANEL carbon dioxide 25 mmol/ L 21-32 Not Available [facility] (Lab Registration) [address] [place], [address], 12/25/2023 17:00:09 12/25/1912/25/2023 COMP METAB OLIC PANEL anion gap 10.0 Not Available [facility] (Lab Registration) [address] [place], [address], 12/25/2023 17:00:09 12/25/19 24 12/25/2023 COMP METAB OLIC PANEL glucose 458 mg/dL 70-110 high Not Available [facility] (Lab Registration) [address] [place], [address], 12/25/2023 17:00:09 12/25/1912/25/2023 COMP METAB OLIC PANEL blood urea nitrogen 15 mg/dL 7-18 Not Available [facility] (Lab Registration) [address] [place], [address], 12/25/2023 17:00:09 12/25/19 24 12/25/2023 COMP METAB OLIC PANEL creatinine 1.0 mg/dL 0.6-1. 0 Not Available [facility] (Lab Registration) [address] [place], [address], 12/25/2023 17:00:09 12/25/19 24 12/25/2023 COMP METAB OLIC PANEL BUN/creatini ne ratio 15.0 9- Not Available [facility] (Lab Registration) [address] [place], [address], 12/25/2023 17:00:09 12/25/19 24 12/25/2023 COMP METAB OLIC PANEL estimated glom filtration rate 66 mL/mi n >60- GFR LIMIT ATION : The eGFR equat ion CKD-E PI 2020 is not appli cable for pedia tric patie nts or great er than 90 years of age. The follo wing condi tions may alter the GFR resul t: extre mes in body size, malnu triti on or obesi ty, skele rebecca muscl e disea se, parap legia or quadr ipleg ia, veget saulo diet or rapid ly ram ing kiney funct ion. Not Available [facility] (Lab Registration) [address], [place], [address], 12/25/2023 17:00:09 12/25/1912/25/2023 COMP METAB OLIC PANEL total protein 6.2 g/dL 6.4-8. 2 low Not Available [facility] (Lab Registration) [address] [place], [address], 12/25/2023 17:00:09 12/25/19 24 12/25/2023 COMP METAB OLIC PANEL albumin 3.1 g/dL 3.4-5. 0 low Not Available [facility] (Lab Registration) [address] [place], [address], 12/25/2023 17:00:09 12/25/19 24 12/25/2023 COMP METAB OLIC PANEL calcium 9.0 mg/dL 8.5-10 .1 Not Available [facility] (Lab Registration) [address] [place], [address], 12/25/2023 17:00:09 12/25/19 24 12/25/2023 COMP METAB OLIC PANEL corrected calcium 9.7 mg/dL 8.5-10 .1 Not Available [facility] (Lab Registration) [address] [place], [address], 12/25/2023 17:00:09 12/25/1912/25/2023 COMP METAB OLIC PANEL bilirubin total 0.3 mg/dL 0.4-1. 5 low Not Available [facility] (Lab Registration) [address] [place], [address], 12/25/2023 17:00:09 12/25/1912/25/2023 COMP METAB OLIC PANEL AST (SGOT) 15 U/L 15-37 Not Available [facility] (Lab Registration) [address] [place], [address], 12/25/2023 17:00:09 12/25/19 24 12/25/2023 COMP METAB OLIC PANEL ALT (SGPT) 27 U/L 12-78 Not Available [facility] (Lab Registration) [address] [place], [address], 12/25/2023 17:00:09 12/25/1912/25/2023 COMP METAB OLIC PANEL alk phosphatase 234 U/L 50-120 high Not Available [facility] (Lab Registration) [address] [place], [address], 12/25/2023 17:00:09 12/25/1912/25/2023 COMP METAB OLIC PANEL note Unles s other cruz noted testi ng perfo rmed at: [facility] [address] [address] [phone] Branden hobbs MD CLIA: [id number] Not Available [facility] (Lab Registration) [address] [place], [address], 12/25/2023 17:00:09 12/25/19 24 12/25/2023 MAGNE SIUM magnesium 1.9 mg/dL 1.8-2. 4 Not Available [facility] (Lab Registration) [address] [place], [address], 12/25/2023 17:00:11 12/25/19 24 12/25/2023 MAGNE SIUM note Unles s other cruz noted testi ng perfo rmed at: [facility] [address] [place] [address] [phone] Branden hobbs MD CLIA: [id number] Not Available [facility] (Lab Registration) [address] [place], [address], 12/25/2023 17:00:11 12/25/19 24 12/25/2023 HEMOG LOBIN A1C glycosylated hemoglobin A1C 13.4 % 4.5-6. 2 high Not Available [facility] (Lab Registration) [address] [place], [address], 12/25/2023 17:01:19 12/25/1912/25/2023 HEMOG LOBIN A1C estimated average glucose 338 mg/dL 82-131 high Not Available [facility] (Lab Registration) [address] [place], [address], 12/25/2023 17:01:19 12/25/1912/25/2023 HEMOG LOBIN A1C note Unlmarge hobbs other cruz noted testi ng perfo rmed at: [facility] [address] [place] [address] [phone] Branden hobbs MD CLIA: [id number] Not Available [facility] (Lab Registration) [address] [place], [address], 12/25/2023 17:01:19 08/03/19 24 08/03/2023 CT, chest , w/o contr [facility] [address] [place], [place] [address] Phone: Fax: Name: ADRIÁN COOK Exam Date: : [birth year] Age 58 years Gender : F Access ion: [id number] Physic elmer: AMBURG EY, TAFFAN Y Facili ty: [facility] Facili ty HSV: Outpat ient Exam: CT CHEST WO CONTRA ST CT CHEST WITHOU T CONTRA ST Histor y: Abnorm al chest radiog raph Compar marianna: 2021 Techni que: Axial CT images were obtain ed throug h the chest. Sagitt al and ribeiro l reform ats were perfor med. This study was perfor med with techni ques to keep radiat ion doses as low as reason ably achiev able, (ALARA ). Indivi dualiz ed dose reduct ion techni ques using automa pillo exposu re contro l or adjust ment of mA and/or kV accord ing to the patien t size were employ ed. 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 No axilla ry adenop athy. The heart is normal in size. No perica rdial or pleura l effusi on. There is minima l bibasi lar atelec tasis or scarri ng. There is bilate ral micro pulmon ventura nodula rity which is likely postin flamma tory. No acute findin gs within the visual ized portio n of the upper abdome n. There is mild degene rative change of the spine. Impres reji: Bilate ral micro pulmon ventura nodula rity, likely inflam matory . Otherw ise no acute proces s. The images were review ed, interp reted, and dictat ed by Dr Clifton Rosa . Transc ribed by Leobardo hobbs PA-C. Dictat ed By: Clifton cash Transc ribed By: Clifton cash Transc ribed On: 10:58 AM Electr onical ly signed by: Clifton cash 5/31/2 024 Thank you for referr ing JORGE LUIS CKADRIÁN N to [facility]. Legall y authen ticate d by SETPHEN Aguilar MD 08-02 10:58: 56 CC'ed Logic: Orderi ng Provid er: AMBURG EY TAFFAN Y CC Provid er: AMBURG EY TAFFAN Y Attend ing Provid er: AMBURG EY TAFFAN Y Referr ing Provid er: AMBURG EY TAFFAN Y Admitt ing Provid er: AMBURG EY TAFFAN Y [email or web address] [facility] (Radiology) [address] , [place], [address], 08/06/2023 12:09:06 Result Notes None recorded. Problems Name Problem SNOMED Code Status Onset Date Resolution Date Notes Provider Name and Address Organization Details Recorded Time Arthritis 7778797 Active 2021 Jostin Dob[place] null, [place] [facility] [place] & [place] 4 10:25:15 Type 2 diabetes mellitus 23561897 Active 2021 Jost[place] [facility] [place] 4 10:25:41 Essential hypertension 02983834 Active 2021 Jost[place] [facility] [place] 4 10:25:31 Gastroesophage al reflux disease 419433503 Active 2021 Jost[place] [facility] [place] 4 10:25:33 Seasonal allergy 381380108 Active 2021 J[place] Dob[place] [facility] [place] 4 10:25:39 Depressive disorder 63628703 Active 2021 Jost[place] [facility] [place] 4 10:25:25 Anxiety 46536669 Active 2021 J[place] [facility] [place] 4 10:25:06 Chronic obstructive pulmonary disease 87523056 Active 2021 J[place] [facility] [place] 4 10:25:20 Hyperlipidemia 57969594 Active 2021 J[place] [facility] [place] 4 10:25:35 Cellulitis 812354974 Active [place] [facility] [place] 4 10:25:18 Abscess of groin 65656230 Active 2023 Jostin Edwardsles [place] [facility] & [place] 4 10:25:04 Ketoacidosis due to type 2 diabetes mellitus 307817373 Active Jost[place] Dob[place] [facility] [place] & [place] 4 10:25:37 Problem Notes None recorded. Procedures Surgical History Date Name Laterality Status Provider Name and Address Organization Details Recorded Time 09/17/19 24 Wound Care completed JULIO CHERY NP [address] [place] [address], [id number] [place] - [facility] - & [place] 09/17/2023 12:04:16 12/01/19 23 Nail debridement (6-10) completed Christin Rincon [place] - [place] - [place] & [place] 11/30/2022 14:44:46 06/10/19 21 Colonoscopy completed Maru Roy [place] - [place] - [facility] & [place] 06/28/2022 15:31:01 procedure on ankle completed Acosta Payne [place] - [place] - [facility] & [place] 09/17/2023 22:16:37 cardiac catheterization completed Kelin Payne [place] - [place] - [facility] & [place] 09/17/2023 22:17:33 Hernia Repair completed Sandi Suarez [place] - [facility] - [facility] & [place] 12/09/2021 08:49:32 hysterectomy completed Sandi Suarez [place] - [place] - [facility] & [place] 12/09/2021 08:49:45 Cholecystectomy completed Sandi Suarez [place] - [place] - [facility] & [place] 12/09/2021 08:49:54 Imaging Results Imaging Date Name Status LastModified by Jocelyn hills Details LastModified Time 08/03/2023 CT, chest, w/o contrast completed [id number] [place] [address] (Radiology) [address] , [place], [address], 08/06/2023 12:09:06 Procedure Notes None recorded. Medical Equipment None Reported. Allergies Allergen ID Allergen Name Allergen Category Reaction Reaction Severity Criticality Documentation Date Start Date Code Code System Note Provider Name and Address Organization Details Recorded Time 90556 No known allergy (situatio n) Not available Not available Not available Not available 11/22/2022 [id number] SNOMED JULIO CHERY NP [address] [facility], [place], [id number] , [facility] & [place] 11:52:50 No known drug allergies Medications Name Sig Start Date Stop Date Status Note LastModified by Organization Details LastModified Time furosemide 40 mg tablet TAKE 1 TABLET BY MOUTH EVERY DAY 2024 active Not Available Not Available Not Avai lable latanoprost 0.005 % eye drops APPLY 1 DROP BOTH EYES AT BEDTIME active Not Available Not Available No t Available atorvastati n 40 mg tablet TAKE 1 TABLET BY MOUTH EVERY DAY AT BEDTIME active Not Available Not Available No t Available buspirone 5 mg tablet 10 mg by oral route. 07/06 completed Not Available Not Available Not Available metformin 500 mg tablet TAKE 2 TABLETS BY MOUTH TWICE DAILY 12/26 completed Not Available Not Available Not Available potassium chloride ER 10 mEq capsule,ext ended release TAKE 1 CAPSULE BY MOUTH EVERY DAY WITH FOOD 12/26 completed Not Available Not Available Not Available acetaminoph en 325 mg tablet 650 mg by oral route. 11/18 completed Not Available Not Available Not Available doxycycline hyclate 100 mg capsule TAKE 1 CAPSULE BY MOUTH TWICE DAILY FOR 20 DAYS 12/24 completed Not Available Not Available Not Available ropinirole 1 mg tablet TAKE 1 TABLET BY MOUTH EVERY NIGHT 1 TO 3 HOURS BEFORE BEDTIME active Not Available Not Available No t Available ipratropium 0.5 mg-albutero l 3 mg (2.5 mg base)/3 mL nebulizatio n soln 1 neb by inhalatio n route. 07/26 completed Not Available Not Available Not Available albuterol sulfate 2.5 mg/3 mL (0.083 %) solution for nebulizatio n 2.5 mg by inhalatio n route. 07/26 completed Not Available Not Available Not Available trazodone 50 mg tablet 50 mg by oral route. 11/18 completed Not Available Not Available Not Available polyethylen e glycol 3350 17 gram oral powder packet 17 g by oral route. 11/18 completed Not Available Not Available Not Available ibuprofen 800 mg tablet TAKE 1 TABLET BY MOUTH EVERY 8 HOURS NEEDED active Not Available Not Available No t Available FreeStyle Test strips Take 1 strip by miscell. route. active Not Available Not Available No t Available hydrocodone 5 mg-acetamin ophen 325 mg tablet 1 tablet by oral route. 11/18 completed Not Available Not Available Not Available prazosin 1 mg capsule 2 mg by oral route. 07/06 completed Not Available Not Available Not Available senna 8.6 mg tablet 12/26 completed Not Available Not Available Not Available fluconazole 200 mg tablet TAKE 1 TABLET BY MOUTH ONCE A WEEK FOR 3 WEEK 02/19 completed Not Available Not Available Not Available glipizide ER 10 mg tablet, extended release 24 hr TAKE 1 TABLET BY MOUTH TWICE DAILY WITH MEALS active Not Available Not Available No t Available FreeStyle Lancets 28 gauge active Not Available Not Available Not Available lisinopril 20 mg tablet TAKE 1 TABLET BY MOUTH EVERY DAY active Not Available Not Available No t Available ondansetron HCl 4 mg tablet TAKE 1 TABLET BY MOUTH EVERY 6 HOURS 12/26 completed Not Available Not Available Not Available Zosyn 4.5 gram intravenous solution 4.5 g by intraven. route. 11/18 completed Not Available Not Available Not Available glipizide ER 5 mg tablet, extended release 24 hr TAKE 2 TABLETS BY MOUTH EVERY DAY IN THE MORNING WITH FOOD FOR DIABETES 06/27 completed Not Available Not Available Not Available Diflucan 150 mg tablet Take 1 tablet every day by oral route for 4 days. 03/20 completed Not Available Not Available Not Available melatonin 3 mg tablet 9 mg by oral route. 07/06 completed Not Available Not Available Not Available ciprofloxac in 500 mg tablet TAKE 1 TABLET BY MOUTH EVERY 12 HOURS FOR 10 DAYS 12/24 completed Not Available Not Available Not Available sulfamethox azole 800 mg-trimetho prim 160 mg tablet TAKE 1 TABLET BY MOUTH EVERY 12 HOURS FOR 10 DAYS 06/27 completed Not Available Not Available Not Available omeprazole 40 mg capsule,del ayed release TAKE 1 CAPSULE BY MOUTH EVERY DAY 30 MINUTES BEFORE BREAKFAST active Not Available Not Available No t Available aspirin 81 mg tablet,navneet yed release 81 mg by oral route. active Not Available Not Available No t Available vancomycin 1,000 mg intravenous injection 2000 mg by intraven. route. 11/18 completed Not Available Not Available Not Available acetaminoph en 500 mg tablet 12/26 completed Not Available Not Available Not Available hydralazine 20 mg/mL injection solution 10 mg by injection route. 11/18 completed Not Available Not Available Not Available amoxicillin 500 mg tablet TAKE 1 TABLET BY MOUTH THREE TIMES DAILY FOR 10 DAYS UNTIL GONE 09/16 completed Not Available Not Available Not Available oxycodone-a cetaminophe n 5 mg-325 mg tablet TAKE 1 TABLET BY MOUTH EVERY 4 HOURS NEEDED active Not Available Not Available No t Available alprazolam 0.25 mg tablet 0.25 mg by oral route. 07/03 completed Not Available Not Available Not Available citalopram 20 mg tablet Take 20 mg by oral route. 07/23 completed Not Available Not Available Not Available potassium chloride 10 mEq/100mL in sterile water intravenous piggyback 1 milliequi valent by intraven. route. 06/27 completed Not Available Not Available Not Available potassium chloride ER 20 mEq tablet,exte nded release(par t/cryst) TAKE 1 TABLET BY MOUTH DAILY active Not Available Not Available No t Available methocarbam ol 750 mg tablet TAKE 1 TABLET BY MOUTH AT BEDTIME FOR 14 DAYS 12/26 completed Not Available Not Available Not Available trazodone 100 mg tablet TAKE 1 TABLET BY MOUTH AT BEDTIME 05/30 completed Not Available Not Available Not Available Humalog U-100 Insulin 100 unit/mL subcutaneou s solution 1 unt by sub-q route. 06/27 completed Not Available Not Available Not Available piperacilli n-tazobacta m 3.375 gram intravenous solution 3.375 g by intraven. route. 11/18 completed Not Available Not Available Not Available sodium bicarbonate 650 mg tablet 12/26 completed Not Available Not Available Not Available Betasept Surgical Scrub 4 % topical liquid USE DIRECTED TO WASH WOUND TWICE DAILY FOR 10 DAYS 12/24 completed Not Available Not Available Not Available Humulin R Regular U-100 Insulin 100 unit/mL injection solution 5 unts by injection route. 06/26 completed Not Available Not Available Not Available pantoprazol e 40 mg tablet,navneet yed release 40 mg by oral route. 07/26 completed Not Available Not Available Not Available oseltamivir 75 mg capsule TAKE 1 CAPSULE BY MOUTH TWICE DAILY FOR 5 DAYS active Not Available Not Available No t Available metformin 1,000 mg tablet TAKE 1 TABLET BY MOUTH TWICE DAILY WITH A MEAL 12/26 completed Not Available Not Available Not Available buspirone 10 mg tablet TAKE 1 TABLET BY MOUTH THREE TIMES DAILY active Not Available Not Available No t Available lisinopril 10 mg tablet TAKE 1 TABLET BY MOUTH EVERY DAY 2023 active Not Available Not Available Not Avai lable promethazin e 25 mg tablet TAKE 1 TABLET BY MOUTH EVERY 4 HOURS NEEDED 12/26 completed Not Available Not Available Not Available ibuprofen 200 mg tablet 200 mg by oral route. 11/18 completed Not Available Not Available Not Available docusate sodium 100 mg capsule 100 mg by oral route. 07/26 completed Not Available Not Available Not Available cephalexin 500 mg tablet TAKE 1 TABLET BY MOUTH FOUR TIMES DAILY FOR 5 DAYS 12/26 completed Not Available Not Available Not Available bisacodyl 5 mg tablet,navneet yed release Take 5 mg by oral route. 07/23 completed Not Available Not Available Not Available mupirocin 2 % topical ointment APPLY A SMALL AMOUNT TO THE AFFECTED AREA BY TOPICAL ROUTE 3 TIMES PER DAY for 7 days. active Not Available Not Available No t Available furosemide 20 mg tablet TAKE 2 TABLETS BY MOUTH EVERY DAY 02/19 completed Not Available Not Available Not Available sodium chloride 0.9 % intravenous solution 1000 mL by intraven. route. 07/26 completed Not Available Not Available Not Available metoprolol succinate ER 25 mg tablet,exte nded release 24 hr TAKE 1 TABLET BY MOUTH EVERY DAY 05/30 completed Not Available Not Available Not Available nystatin 100,000 unit/gram topical powder APPLY TO THE AFFECTED AREA(S) BY TOPICAL ROUTE 2 TIMES PER DAY 08/04 completed Not Available Not Available Not Available ondansetron 4 mg disintegrat ing tablet 4 mg by oral route. 07/26 completed Not Available Not Available Not Available cefdinir 300 mg capsule TAKE 1 CAPSULE BY MOUTH EVERY 12 HOURS FOR 7 DAYS 07/23 completed Not Available Not Available Not Available risperidone 1 mg tablet TAKE 1 TABLET BY MOUTH EVERY NIGHT AT BEDTIME active Not Available Not Available No t Available dextrose 5 % and 0.45 % sodium chloride intravenous solution 1000 mL by intraven. route. 07/26 completed Not Available Not Available Not Available doxycycline hyclate 100 mg tablet TAKE 1 TABLET BY MOUTH EVERY 12 HOURS 12/24 completed Not Available Not Available Not Available loratadine 10 mg tablet TAKE 1 TABLET BY MOUTH EVERY DAY 05/30 completed Not Available Not Available Not Available glipizide 5 mg tablet Take 10 mg by oral route. 03/20 completed Not Available Not Available Not Available prazosin 2 mg capsule TAKE 1 CAPSULE BY MOUTH AT BEDTIME NEEDED active Not Available Not Available No t Available amoxicillin 875 mg-potassiu m clavulanate 125 mg tablet 09/23 completed Not Available Not Available Not Available Ventolin HFA 90 mcg/actuati on aerosol inhaler INHALE 2 PUFFS BY MOUTH EVERY 6 HOURS NEEDED active Not Available Not Available No t Available bisacodyl 5 mg tablet Take 1 tablet every day by oral route as needed. active Not Available Not Available No t Available enoxaparin 40 mg/0.4 mL subcutaneou s syringe 40 mg by sub-q route. 06/27 completed Not Available Not Available Not Available insulin lispro (U-100) 100 unit/mL subcutaneou s pen ADMINISTE R 25 UNITS UNDER THE SKIN THREE TIMES DAILY active Not Available Not Available No t Available dextrose 50 % in water (D50W) intravenous syringe 50 mL by intraven. route. 06/27 completed Not Available Not Available Not Available ezetimibe 10 mg tablet Take 10 mg by oral route. 08/09 completed Not Available Not Available Not Available bupropion HCl XL 300 mg 24 hr tablet, extended release TAKE 1 TABLET BY MOUTH EVERY MORNING active Not Available Not Available No t Available Mag-Al Plus 200 mg-200 mg-20 mg/5 mL oral suspension 30 mL by oral route. 07/26 completed Not Available Not Available Not Available Spiriva with HandiHaler 18 mcg and inhalation capsules INHALE BY MOUTH EVERY DAY 12/26 completed Not Available Not Available Not Available nitrofurant oin monohydrate /macrocryst als 100 mg capsule TAKE 1 CAPSULE BY MOUTH EVERY 12 HOURS 03/20 completed Not Available Not Available Not Available duloxetine 30 mg capsule,del ayed release TAKE 1 CAPSULE BY MOUTH EVERY MORNING active Not Available Not Available No t Available duloxetine 60 mg capsule,del ayed release TAKE 1 CAPSULE BY MOUTH EVERY MORNING active Not Available Not Available No t Available BD Ultra-Fine Mini Pen Needle 31 gauge x 05/18 completed Not Available Not Available Not Available chlorhexidi ne gluconate 0.12 % mouthwash 06/08 completed Not Available Not Available Not Available sodium chloride 0.9 % intravenous piggyback 100 mL by intraven. route. 11/18 completed Not Available Not Available Not Available Monoject Prefill Advanced 0.9 % Sodium Chloride injection syringe 10 mL by injection route. 07/26 completed Not Available Not Available Not Available ondansetron HCl (PF) 4 mg/2 mL injection solution 4 mg by injection route. 07/26 completed Not Available Not Available Not Available Symbicort 160 mcg-4.5 mcg/actuati on HFA aerosol inhaler INHALE 2 PUFFS BY MOUTH TWICE DAILY 12/26 completed Not Available Not Available Not Available FreeStyle Lite Meter kit USE TO TEST BLOOD SUGAR DAILY active Not Available Not Available No t Available cholecalcif jim (vitamin D3) 1,250 mcg (50,000 unit) capsule TAKE 1 CAPSULE BY MOUTH 1 TIME EVERY WEEK active Not Available Not Available No t Available Lantus Solostar U-100 Insulin 100 unit/mL (3 mL) subcutaneou s pen ADMINISTE R 30 UNITS UNDER THE SKIN TWICE DAILY active Not Available Not Available No t Available magnesium sulfate 2 gram/50 mL (4 %) in water intravenous piggyback 1 g by intraven. route. 07/26 completed Not Available Not Available Not Available Eliquis 5 mg tablet TAKE 1 TABLET BY MOUTH TWICE DAILY active Not Available Not Available No t Available Eliquis 2.5 mg tablet 5 mg by oral route. 07/06 completed Not Available Not Available Not Available melatonin 10 mg capsule TAKE 1 CAPSULE BY MOUTH AT BEDTIME active Not Available Not Available No t Available Jardiance 10 mg tablet TAKE 1 TABLET BY MOUTH EVERY DAY 12/26 completed Not Available Not Available Not Available Jardiance 25 mg tablet TAKE 1 TABLET BY MOUTH EVERY DAY 12/26 completed Not Available Not Available Not Available Trulicity 1.5 mg/0.5 mL subcutaneou s pen injector INJECT ONCE WEEKLY DIRECTED 08/04 completed Not Available Not Available Not Available Trulicity 0.75 mg/0.5 mL subcutaneou s pen injector ADMINISTE R 0.75 MG UNDER THE SKIN 1 TIME A WEEK DIRECTED 12/26 completed Not Available Not Available Not Available melatonin 10 mg-lemon balm leaf extract 1 mg tablet Take 10 mg by oral route. 07/23 completed Not Available Not Available Not Available Toujeo Max U-300 SoloStar 300 unit/mL (3 mL) subcutaneou s insulin pen Inject 50 unts by sub-q route. 07/23 completed Not Available Not Available Not Available Dexcom G6 Gluing Crew Leader USE DIRECTED TO CHECK BLOOD SUGARS 12/26 completed Not Available Not Available Not Available Dexcom G6 Transmitter device USE DIRECTED WITH DEXCOM SYSTEM 12/26 completed Not Available Not Available Not Available vancomycin 1.5 gram intravenous solution 1500 mg by intraven. route. 11/18 completed Not Available Not Available Not Available magnesium 400 mg (as magnesium oxide) tablet Take 1 tablet every day by oral route. active Not Available Not Available No t Available Trulicity 3 mg/0.5 mL subcutaneou s pen injector medicatio n:Trulici ty Solution Pen-injec tor 3 MG/0.5ML dose:0.0 route:HOPPER BCUTANEOU S frequen cy:QWEEK 07/23 completed Not Available Not Available Not Available Trulicity 4.5 mg/0.5 mL subcutaneou s pen injector Inject 0.5 mL every week by subcutane ous route for 30 days. 02/19 completed Not Available Not Available Not Available Prevnar 20 (PF) 0.5 mL intramuscul ar syringe 0.5 mL by intramusc . route. 06/27 completed Not Available Not Available Not Available insulin glargine-yf gn (U-100) 100 unit/mL subcutaneou s solution 50 unts by sub-q route. 06/27 completed Not Available Not Available Not Available Mounjaro 7.5 mg/0.5 mL subcutaneou s pen injector 2024 active Not Available Not Available Not Avai lable Mounjaro 5 mg/0.5 mL subcutaneou s pen injector ADMINISTE R 5 MG UNDER THE SKIN EVERY WEEK 09/16 completed Not Available Not Available Not Available Mounjaro 10 mg/0.5 mL subcutaneou s pen injector Inject 10 mg every week by subcutane ous route for 30 days. 12/24 completed Not Available Not Available Not Available Vitals Date Recorded Body height Body mass index (BMI) Body weight Body temperature Oxygen saturation Oxygen saturation in Arterial blood by Pulse oximetry Heart rate Respiratory rate Systolic blood pressure Diastolic blood pressure Provider Name and Address Organization Details Last Updated DateTime 157.48 cm 45.7 kg/m2 792546. 09 g 98.4 [degF] 98 % 98 % 84 /min 18 /min 133 mm[Hg] 63 mm[Hg] Jostin TREJO - [facility]NT [facility] & [place] 4 10:23:28 Date Recorded Body height Body mass index (BMI) Body weight Body temperature Oxygen saturation Oxygen saturation in Arterial blood by Pulse oximetry Heart rate Systolic blood pressure Diastolic blood pressure Provider Name and Address Organization Details Last Updated DateTime 4 157.48 cm 45.4 kg/m2 442411. 91 g 97.2 [degF] 98 % 98 % 99 /min 132 mm[Hg] 68 mm[Hg] Kaleb Bravo roe [place] - [facility] & [place] 4 14:20:40 Date Recorded Body height Body mass index (BMI) Body weight Body temperature Oxygen saturation Oxygen saturation in Arterial blood by Pulse oximetry Heart rate Respiratory rate Systolic blood pressure Diastolic blood pressure Provider Name and Address Organization Details Last Updated DateTime 4 157.48 cm 47.6 kg/m2 705440. 02 g 98.2 [degF] 96 % 96 % 100 /min 18 /min 146 mm[Hg] 67 mm[Hg] Jostin TREJO - NT [facility] & [place] 4 11:04:57 Date Recorded Body height Body mass index (BMI) Body weight Body temperature Oxygen saturation Oxygen saturation in Arterial blood by Pulse oximetry Heart rate Systolic blood pressure Diastolic blood pressure Provider Name and Address Organization Details Last Updated DateTime 4 157.48 cm 47.6 kg/m2 427470. 02 g 99.3 [degF] 97 % 97 % 100 /min 135 mm[Hg] 79 mm[Hg] Kaleb Donald roe [place] - [facility] & [place] 4 11:39:32 Date Recorded Body height Body mass index (BMI) Body weight Body temperature Oxygen saturation Oxygen saturation in Arterial blood by Pulse oximetry Heart rate Respiratory rate Systolic blood pressure Diastolic blood pressure Provider Name and Address Organization Details Last Updated DateTime 4 157.48 cm 48 kg/m2 760494. 92 g 98.4 [degF] 98 % 98 % 90 /min 18 /min 157 mm[Hg] 72 mm[Hg] Gini Nessmark MAYA - LPNT [facility] & [place] 14:02:04 Social History Question Answer Notes LastModified by Organizat ion Details LastModified Time Tobacco Smoking Status Former Smoker Sandi Erick [facility], [facility] & [place] 12/26/2021 15:06:08 Do You Have An Advance Directive? No [email or web address] Information not available 07/24/2023 What Is Your Level Of Alcohol Consumption? None Information not available 12/26/2021 Do You Wear A Helmet When Biking? Yes [email or web address] Information not available 07/24/2023 Are You Blind Or Do You Have Difficulty Seeing? No [email or web address] Information not available 07/24/2023 What Is Your Level Of Caffeine Consumption? Occasional Information not available 12/26/2021 In The 14 Days Before Symptom Onset, Have You Had Close Contact With A Laboratory-confir med COVID-19 While That Case Was Ill? No [email or web address] Information not available 07/24/2023 In The 14 Days Before Symptom Onset, Have You Had Close Contact With A Person Who Is Under Investigation For COVID-19 While That Person Was Ill? No [email or web address] Information not available 07/24/2023 Have You Been To An Area Known To Be High Risk For COVID-19? No [email or web address] Information not available 07/24/2023 Are You Currently Employed? No Information not available 07/24/2023 Are You Deaf Or Do You Have Serious Difficulty Hearing? No [email or web address] Information not available 07/24/2023 What Type Of Diet Are You Following? REGULAR [email or web address] Information not available 07/24/2023 Have You Processed Blood Or Body Fluids From An Ebola Virus Disease Patient Without Appropriate PPE? No [email or web address] Information not available 07/24/2023 Do You Reside In Or Have You Traveled To An Area Where Ebola Virus Transmission Is Active? No [email or web address] Information not available 07/24/2023 Have There Been Any Changes To Your Family Or Social Situation? No [email or web address] Information no t available 07/24/2023 What Is The Fluoride Status Of Your Home? Unknown [email or web address] Information not available 07/24/2023 Are There Any Guns Present In Your Home? No [email or web address] Information not available 07/24/2023 Have You Recently Or Are You Planning To Travel To An Area With Zika Virus? No [email or web address] Information not available 07/24/2023 Do You Use Insect Repellent Routinely? Yes [email or web address] Information not available 07/24/2023 Do You Feel Safe At Home? Yes [email or web address] Information not available 07/24/2023 Do You Have A Medical Power Of Top Hat Body Maker? No [email or web address] Information not available 07/24/2023 What Was The Date Of Your Most Recent Tobacco Screening? 09/24/2023 [email or web address] Information not available 09/24/2023 Do You Have Any Pets? No Information not available 07/24/2023 Do You Use Your Seat Belt Or Car Seat Routinely? Yes [email or web address] Information not available 07/24/2023 Do You Have Smoke And Carbon Monoxide Detectors In Your Home? Yes [email or web address] Information not available 07/24/2023 At What Age Did You Start Smoking Tobacco? 24 Information not available 12/26/2021 Are You Passively Exposed To Smoke? No [email or web address] Information no t available 07/24/2023 Do You Feel Stressed (tense, Restless, Nervous, Or Anxious, Or Unable To Sleep At Night)? [id number] [email or web address] Information not available 07/24/2023 Do You Use Any Illicit Or Recreational Drugs? No Information not available 12/26/2021 Do You Use Sunscreen Routinely? Yes [email or web address] Information not available 07/24/2023 Has Tobacco Cessation Counseling Been Provided? No Information not available 05/30/2022 How Many Years Have You Smoked Tobacco? 31 Information not available 12/26/2021 Are You Currently In School? No [email or web address] Information not available 07/24/2023 Do You Or Have You Ever Used Any Other Forms Of Tobacco Or Nicotine? No Information not available 12/26/2021 Sex: Unknown Functional Status Question Answer Note LastModified by Organizat ion Details LastModified Time Do you have difficulty walking or climbing stairs? No Information not available 07/24/2023 Do you have transportation difficulties? No [email or web address] Information not available 07/24/2023 Are you able to walk? YESWOREST [email or web address] Information not available 07/24/2023 Do you have difficulty doing errands alone? No [email or web address] Information not available 07/24/2023 Are you able to care for yourself? Yes [email or web address] Information not available 07/24/2023 Do you have difficulty dressing or bathing? No Information not available 07/24/2023 What is your exercise level? None Information not available 07/24/2023 Mental Status Question Answer Note LastModified by Organization D etails LastModified Time Do you have difficulty concentrating, remembering or making decisions? No [email or web address] Information no t available 07/24/2023 Family History Relationship Description Onset Age of this Age Resolved Age Notes LastModified by Organization Details LastModified Time Mother Essential hypertension [email or web address] Not available 09/2021 08:48:38 Mother Coronary arterioscler osis deceas ed [email or web address] Not available 12/09/2021 08:48:50 Mother Malignant neoplastic disease deceas ed [email or web address] Not available 12/09/2021 08:49:08 Mother Heart disease [email or web address] Not available 2023 22:16:03 Mother Myocardial infarction [email or web address] Not available 09/16 22:17:42 Father Essential hypertension [email or web address] Not available 09/2021 08:48:38 Father Malignant neoplastic disease deceas ed [email or web address] Not available 12/09/2021 08:49:08 Father Heart failure [email or web address] Not available 2023 22:17:49 Sister Myocardial infarction [email or web address] Not available 09/16 22:17:55 Sister Essential hypertension [email or web address] Not available 22:18:05 Sister Coronary arterioscler osis [email or web address] Not available 2023 22:18:13 Sister Diabetes mellitus [email or web address] Not available 2023 22:18:21 Medical History Condition Response Allergies/Hayfever Y Anxiety Disorder Y Diabetes Y Arthritis Y Reflux/GERD Y High Cholesterol Y Hypertension Y Depression Y COPD Y Gynecological HistoryNo gynecological history recorded. Obstetrics History GPAL:G 0 P 0 0 0 0 Immunizations Vaccine Type Date Status Note Provider Nam e and Address Organization Details Recorded Time Hep A, adult 9 completed Not Available [facility] 04/20/2023 04:31:24 COVID-19, mRNA, LNP-S, PF, 30 mcg/0.3 mL dose 1 completed Not Available [facility] 11/20/2022 13:07:42 COVID-19, mRNA, LNP-S, PF, 30 mcg/0.3 mL dose 1 completed Not Available [facility] 11/20/2022 13:07:42 COVID-19, mRNA, LNP-S, PF, 30 mcg/0.3 mL dose 1 completed Not Available [facility] 11/20/2022 13:07:42 Pneumococcal conjugate PCV20, polysaccharide [id number] conjugate, adjuvant, PF 3 completed JULIO CHERY NP [address] [place] [address], [address] [place] [address], [place] [place] [facility] [place] 10/04/2022 16:44:02 zoster recombinant 3 completed JULIO CHERY NP [address] [place] [address], [address] [place] [address], [place] [facility] [place] [facility] [place] 10/04/2022 16:44:02 Influenza, split virus, quadrivalent, PF 3 completed JULIO CHERY NP [address] [place] [address], [address] [place] [address], [place] [facility] [place] 12/17/2022 21:17:40 Influenza, split virus, quadrivalent, PF 2 completed JULIO CHERY NP [address] [place] [address], [address] [place] [address], [place] [facility] [place] 12/28/2021 20:34:37 Influenza, split virus, trivalent, PF 4 completed JULIO CHERY NP [address] [place] [address], [address] [place] [address], [place] [facility] [place] 12/28/2023 08:53:39 Tdap 4 completed JULIO CHERY NP [address] [place] [address], [address] [place] [address], [place] [place] [facility] [place] 12/28/2023 08:53:39 Past Encounters Encounter ID Performer Location Encounter Start Date Encounter Closed Date Diagnosis/Indication Diagnosis SNOMED-CT Code Diagnosis ICD10 Code Diagnosis Note [id number] JULIO CHERY NP [address] [address] 12/26/2021 14:46:09 12/26/2021 16:11:35 Essential hypertension 35978048 I10 educated on goal of less than 130/90advi sed low sodium diet, healthy lifestyle including exercise as ablecontin ue current medication regimenER if any symptoms such as chest pain, shortness of breath Type 2 lin betes mellitus 43233536 E11.65 take medication s as prescribed awaiting [id number] forced diet and lifestyle changesdai ly foot checkyearl y eye examfollow up every 3 months Administra tion of influenza vaccine 05668820 Z23 [id number] JULIO CHERY NP [address] [address] 05/30/2022 11:15:23 05/30/2022 12:51:37 Localized infection of skin AND/OR subcutaneous tissue 095132219 L08.9 antibacter ial soap when washingkee p clean and drymedicat ions as prescribed f/u if symptoms persis or worsen Candidiasis of skin 4988 3006 B37.2 discussed keeping skin clean and dry and medication r regimenkee ping glucose under control Abdominal pain 80908450 R10.9 Umbilical hernia 3280945 07 K42.9 hx of hernia repair in past; new onset painawaiit ng USreferral to eneral surgery [id number] JULIO CHERY NP [address] [address] 06/14/2022 15:34:41 06/24/2022 09:12:20 Screening mammography of bilateral breasts 3342068775 16489 Z12.31 Type 2 lin betes mellitus 82370083 E11.65 take medication s as prescribed awaiting [id number] forced diet and lifestyle changesdai ly foot checkyearl y eye examfollow up every 3 monthsdisc ussed importance of compliance ; ways to get to appt with bus lab work drawn by kenrick Downingesemia 740331165 E83.42 recheck magnesium level today Essential hypertension 93381873 I10 educated on goal of less than 130/90advi sed low sodium diet, healthy lifestyle including exercise as ablecontin ue current medication regimenER if any symptoms such as chest pain, shortness of breath Long-term current use of anticoagulant 926225451 Z79.01 denies any side effectscon tinue current medication regimen Mixed anxi ety and depressive disorder 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 Candidiasis of skin 4988 3006 B37.2 discussed keeping skin clean and dry and medication regimenkee ping glucose under control [id number] Rob Bermeo MD [facility] [address] [place] [address] [place] [address] 06/08/2022 08:50:18 06/08/2022 09:35:41 Umbilical pain 36345485 R10.33 Umbilical pain in the area of the previous surgery. Eight years ago. [id number] JULIO CHERY NP [place] [address] [facility] [place] [address] 08/04/2022 08:10:31 08/04/2022 09:08:10 Type 2 diabetes mellitus 80629056 E11.65 take medication s as prescribed awaiting [id number] forced diet and lifestyle changesdai ly foot checkyearl y eye examfollow up every 3 months labs drawn by eva in clinic in right arm Mixed anxi ety and depressive disorder 931847222 F41.8 controlled continue medication Denies SI/HIbeen out of wellbutrin Mixed hyperlipidemia 267 502500 E78.2 Patient advised to exercise, eat a prudent diet and lose weight as appropriat e.been out of zetia Essential hypertension 77078851 I10 educated on goal of less than 130/90meet ing goaladvise d low sodium diet, healthy lifestyle including exercise as ablecontin ue current medication regimenER if any symptoms such as chest pain, shortness of breath [id number] JULIO CHERY NP [facility] [address] [facility] [place] [id number] 09/27/2022 08:56:45 09/27/2022 09:39:12 Type 2 diabetes mellitus 47234042 E11.65 take medication s as prescribed awaiting [id number] forced diet and lifestyle changesdai ly foot checkyearl y eye examfollow up every 3 months Swelling o f bilateral lower limbs 514794715 M79.89 needs refill Adult heal th examination 192427486 Z00.00 Patient presented to office today for their Annual Wellness Visit. Education was provided on healthy nutrition, including a diet rich in fruits and vegetables , minimizing simple carbohydra amanda, salt, and saturated fats. Encouraged regular cardiovasc ular exercise such as walking at least 30 minutes daily, 5 times per week. Emphasized preventive health measures and educated pt on fall prevention and community- based lifestyle interventi ons to help reduce health risks and promote healthy living. Screening mammography of bilateral breasts 4837914302 58438 Z12.31 Screening for malignant neoplasm of colon 565575614 Z12.11 Administra tion of pneumococcal vaccine 37053192 Z23 Administra tion of viral vaccine 79918030 Z23 Long-term current use of anticoagulant 914665479 Z79.01 denies any side effectscon tinue current medication regimen [id number] JULIO CHERY NP [facility] [address] [facility] [place] [address] 11/22/2022 11:01:46 11/22/2022 12:24:51 Localized infection of skin AND/OR subcutaneous tissue 314265678 L08.9 antibacter ial soap when washingkee p clean and drymedicat ions as prescribed f/u if symptoms persist or worsen Uncontroll ed type 2 diabetes mellitus 339972211 E11.65 Educated on she must make dietary changes, high risk for heart attack, stroke, loss of limb, amputation due to elevated glucose. Switched Lantus to Toujeo Max. Continue lispro, glipizide, unable to tolerate SGLT2 such as Farxiga and Jardiance due to yeast infections . Follow up in 2 weeks with glucose log up to 3 times a day. [id number] Rob Kaufman General Surgery [address] [facility] A [place] [address] 11/20/2022 10:00:26 11/20/2022 14:04:39 Epidermoid cyst of skin of groin 527472685 L72.0 [id number] JULIO CHERY, BONI [facility] [address] [facility] [place] [address] 12/14/2022 14:24:27 12/14/2022 15:24:18 Uncontrolled type 2 diabetes mellitus 662651997 E11.65 Educated on she must make dietary changes, high risk for heart attack, stroke, loss of limb, amputation due to elevated glucose. Switched Lantus to Toujeo Max. Continue lispro, glipizide, unable to tolerate SGLT2 such as Farxiga and Jardiance due to yeast infections .switch trulicity for mounjaro due to not meeting therapeuti c goal Administra tion of influenza vaccine 51401373 Z23 [id number] Judy Mast DPM [facility] [address] [place] [address],[facility] [address] [place] [address] 11/30/2022 13:34:50 11/30/2022 14:47:15 Disorder of nervous system due to type 2 diabetes mellitus 923932134 E11.49 Performed/ updated lower extremity neurovascu lar exams today.Disc ussed importance of diabetic foot care including controllin g blood sugar, monitoring feet daily, applying moisturize r to feet but not between the toes, appropriat e shoe gear, drying well between the toes after bath, and risks associated with soaking feet. Also discussed importance of routine exercise (recommend daily average of 30 minutes), a balanced diet ( consider supplement ation if diet not adequate), and healthy sleep habits.Iva gao interested in the diabetic shoe program. Patient would medically benefit from diabetic shoes and accommodat irene inserts. Patient qualifies for this program according to Medicare guidelines . Style is selected and size measured today. See order form for details. 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 Acquired p es planus of left foot 4619053167 11695 M21.42 Acquired p es planus of right foot 6744932557 67220 M21.41 Callosity 723894735 L84 Filed with jesus woodard, monitor for worsening. Counseled regarding routine maintenanc e. Stressed importance of appropriat e shoe gear with ambulation , even in the home. [id number] Judy Mast, DPM [facility] [address] [place] [address],[facility] [address] [place] [address] 01/12/2023 14:35:41 01/12/2023 14:37:11 Disorder of nervous system due to type 2 diabetes mellitus 613227995 E11.49 Diabetic shoes right and left and multiple density heat moldable inserts x 6 were dispensed in office today (Dr. Belén barnes). Each insert was prefabrica pillo with base layer of at least 3/16 inch material of shore a 40 durometer. Patient's gait was observed while wearing diabetic shoes and inserts. Proper length, width and fit were inspected. Patient signed product warranty form with a full disclosure of return policy and break in period. [facility] Supp[facility] Standard policy was also dispensed. Patient to follow up if any problems should arise during break in period. See dispensal form for size, style, and width. DME dispensed by {{[facility] R[facility]con [facility], KISHOR Ng, KISHOR Mast DPAdam}}. Callosity 740495990 L84 Acquired p es planus of left foot 5926099114 61812 M21.42 Acquired p es planus of right foot 0804196538 39060 M21.41 [id number] Tapan Garcia MD [address] [place] [address] 02/19/2023 14:27:47 02/19/2023 16:08:17 Increased frequency of urination 752747878 R35.0 will check urine. Will treat empiricall y for now. Respirator y tract congestion and cough 164100344 R05.1 Negative for COVID-19 Dysuria 42242736 R30.0 will treat patient empiricall y [id number] Tapan Garcia MD [facility] [address] [place] [address] 03/20/2023 10:05:43 03/20/2023 10:23:29 Abscess of groin 50500269 L02.214 Left groin. Patient states lesion has opened and drained. There is no erythema at this time. Wound is still draining some. Swelling has markedly reduced exam shows no cellulitis proceed with antibiotic s and mupirocin ointment seek medical care symptoms become severe Uncontroll ed type 2 diabetes mellitus 137097286 E11.65 patient's last hemoglobin A1c was greater than 14. Recommend return to see primary care for further evaluation and treatment. [id number] JULIO CHERY NP [address] [place] [address] 06/27/2023 11:15:21 06/27/2023 11:47:46 Dysuria 66550656 R30.0 Ketonuria 775158733 R82. 4 concern for euglycemic diabetic ketoacidos is; sent to ER for evaluation and workup Uncontroll ed type 2 diabetes mellitus 606723762 E11.65 Educated on she must make dietary changes, high risk for heart attack, stroke, loss of limb, amputation due to elevated glucose. Continue lispro, glipizide, unable to tolerate SGLT2 such as Farxiga and Jardiance due to yeast infections .switch trulicity for mounjaro due to not meeting therapeuti c goal Patient no ncompliance - general 898039482 Z91.199 discussed importance of follow up visits for her diabetes [id number] JULIO CHERY NP [place] [address] [facility] [place] [address] 07/24/2023 10:03:31 07/24/2023 11:20:32 Type 2 diabetes mellitus 24666742 E11.65 take medication s as prescribed awaiting mfax5mitpy forced diet and lifestyle changesdai ly foot checkyearl y eye examfollow up every 3 monthsEduc ated on she must make dietary changes, high risk for heart attack, stroke, loss of limb, amputation due to elevated glucose.un able to tolerate SGLT2 such as Farxiga and Jardiance due to yeast infections . discussion on importance of getting her glucose under controlrep rinted glucose logs; f/u in 2 weeksrepri nted medication list for her to have and verify what she is taking Lung mass 859372801 R91. 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 limits ability to care for herself and her chronic conditions ; discussed ways to which she may learn better to be able to care for herself better [id number] JULIO CHERY NP [address] [place] [address] 07/10/2023 12:04:12 07/10/2023 13:39:21 Acute right otitis media 047758869 H66.91 medication as prescribed f/u if symptoms persist or worsen [id number] JULIO CHERY NP [address] [place] [address] 08/10/2023 14:07:31 08/13/2023 08:58:37 Type 2 diabetes mellitus 65049351 E11.65 take medication s as prescribed awaiting rcrd9hsosz forced diet and lifestyle changesdai ly foot checkyearl y eye examfollow up every 3 monthsEduc ated on she must make dietary changes, high risk for heart attack, stroke, loss of limb, amputation due to elevated glucose.un able to tolerate SGLT2 such as Farxiga and Jardiance due to yeast infections . discussion on importance of getting her glucose under controldid nt return her glucose logs given to her but did bring her medication s to verify what taking but multiple bottles of the same things continu with lantus 50 units twice a dayhumalog 25 units 3x a dayglipizi de ER 10 mg BIDincreas e mounjaro to 7.5 mg once a week [id number] JULIO CHERY NP [address] [place] [address] 09/17/2023 10:40:05 09/17/2023 11:48:30 Uncontrolled type 2 diabetes mellitus 403623462 E11.65 Educated on she must make dietary changes, high risk for heart attack, stroke, loss of limb, amputation due to elevated glucose. Continue lispro, glipizide, unable to tolerate SGLT2 such as Farxiga and Jardiance due to yeast infections .switch trulicity for mounjaro due to not meeting therapeuti c goaltolera pillo mounmunir welltake medication s as prescribed awaiting [id number] forced diet and lifestyle changesdai ly foot checkyearl y eye examfollow up every 3 months Essential hypertension 41357638 I10 educated on goal of less than 130/90meet ing goaladvise d low sodium diet, healthy lifestyle including exercise as ablecontin ue current medication regimenER if any symptoms such as chest pain, shortness of breath Hypomagnesemia 436177007 E83.42 recheck magnesium level todaytakin g supplement ation Restless legs 42838828 G 25.81 recheck lab work todaycontr olled Localized infection of skin AND/OR subcutaneous tissue 707698869 L08.9 antibacter ial soap when washingkee p clean and dryeducate d on dressing changes, cleaning; educated as I was doing wound care in the clinic for hands on experience to fit learner needsmedic ations as prescribed f/u 1 weekER if any urgent signs or symptoms arise [id number] JULIO CHERY NP [address] [place] [address] 09/24/2023 11:24:44 09/24/2023 11:53:50 Localized infection of skin AND/OR subcutaneous tissue 499344691 L08.9 antibacter ial soap when washingkee p clean and dryeducate d on cleaningme dications as prescribed f/u 2 weeksER if any urgent signs or symptoms arisenurse to request culture results from ERchange antibiotic therapy due to new place arising, previous place still with induration , no drainage, erythema still present with low grade fever [id number] Tapan Garcia MD [address] [place] [address] 12/25/2023 13:56:28 12/25/2023 14:53:51 Essential hypertension 24296349 I10 educated on goal of less than 130/90not meeting goaladvise d low sodium diet, healthy lifestyle including exercise as ablemake sure taking medication as prescribed , increase lisinopril to 20 mg once dailyER if any symptoms such as chest pain, shortness of breath Uncontroll ed type 2 diabetes mellitus 599550426 E11.65 Educated on she must make dietary changes, high risk for heart attack, stroke, loss of limb, amputation due to elevated glucose.Co ntinue lantus, mounjaro, lispro, glipizide, unable to tolerate SGLT2 such as Farxiga and Jardiance due to yeast infections .take medication s as prescribed awaiting naka9rvrnt forced diet and lifestyle changesdai ly foot checkyearl y eye examfollow up every 3 months Long-term current use of anticoagulant 813279873 Z79.01 denies any side effectscon tinue current medication regimenhx of DVT Hypomagnesemia 039898750 E83.42 recheck magnesium level todaytakin g supplement ation Administra tion of influenza vaccine 83185589 Z23 Administra tion of diphtheria, pertussis, and tetanus vaccine 883453132 Z23 Health Concerns Section Related Observation LastModified by Organization Detai ls LastModified Time None Recorded Concern Status LastModified by Organization Details LastModified Time None Recorded Advance Directives Directive N: Payers Insurance Date Sequence Insurance Name Policy Number Policy Carrizales Covered Member ID Carrizales Member ID Guarantor Name 06/23/2024 1 [employer] [place] Betzaida Serrano [id number] Betzaida Serrano 09/22/2023 1 [employer] [place] Betzaida Serrano [id number] Betzaida Serrano Notes Date Note Type Note Provider Name and Address Organization Details Recorded Time 07/24/2023 text/html 58-year-old dylon franklin who presents for follow-up on chronic care. She has been in the ER multiple times due to uncontrolled diabetes. Originally she was having trouble with insurance getting her insulin. Poor insight on what exactly she is taking. She does report waiting on her refills of mounjaro but did have injection last Sunday. checked her glucose last night and it was 210. she reports she is out of her glipizide but it was filled on June 26, so not due to be filled yet. She was seen by Cardiology last month. She is also followed by psych at [facility] and taking duloxetine therapy she never followed up with her glucose logs due to having to do extensive treatment of her house for roaches and the papers got messed up. Reviewed medication list with patient and again printed so we could verify medications because she did not bring them with her today JULIO CHERY, BONI [address] [place] [address], [phone], [facility] [place] 07/24/2023 10:49:21 08/10/2023 text/html 58-year-old dylon franklin who presents for follow-up on uncontrolled diabetes. She did not return with her blood sugar logs but did bring her medications to review. She has multiple bottles of the same medication. Reports blood sugar this morning was 190. She is taking her glipizide extended release 10 mg twice a day, Lantus 50 units twice a day, Humalog 25 units 3 times a day and monitor RO 5 mg once a week. Has tolerated increase of medication well. She reports increasing salads, went out to eat today but had the salad bar. JULIO CHERY NP [address] [place], [address], [facility] [place] 08/10/2023 14:35:30 09/17/2023 text/html 58-year-old dylon franklin who presents for ER follow-up as well as chronic care management. She went to the ER yesterday and had a cyst on her back that she had to have I&D completed. She reports her and the provider both felt sick due to smell. Culture is still pending. She is taking antibiotic as prescribed. She denies any fever. Has not changed bandage. Will get her daughter to help her change bandages. She is taking all of her medication as prescribed. Reports glucose running around 200 but she is trying to monitor what she is eating and is drinking more water. Denies any wounds or ulcers on her feet. JULIO CHERY NP [address] [place], [address], [facility] [place] 09/17/2023 12:05:02 09/24/2023 text/html 58-year-old dylon franklin who presents for 1 week follow-up on skin infection. Is taking antibiotics as prescribed by ER but new lesion has popped up on her left back of her leg. Has low-grade fever. Denies any drainage. JULIO CHERY NP [address] [place], [address], [facility] [place] 09/24/2023 11:41:30 12/25/2023 text/html 58-year-old dylon franklin who presents for follow-up on chronic care.Diabetes has been uncontrolled, continues to work on lifestyle changes. She is taking medication as prescribed. Up to 7.5 once a week on her Mounjaro. denies any side effects. Reports normal bowel and bladder habits. Denies any episodes of hypoglycemia. Continues to take her Eliquis for history of DVT. Reports mood is controlled with duloxetine therapy. She denies any SI/HI. Blood pressure is slightly elevated today. She denies any chest pain, shortness of breath, swelling. JULIO CHEYR NP [address] [place] [address], [phone], [facility] [place] 12/28/2023 08:57:56 OBGyn Episode No OBEpisode recorded.
--- OUTSIDE RECORDS SUMMARY | 2024-07-09 16:08 | XMS_ITS | Continuity of Care Document ---
Author Organization [facility] Phone Care Team Providers Care Oxidation Engineer Name Role Phone NAOMI MOLINA Admitting NAOMI MOLINA Unavailable NAOMI MOLINA Primary Attending JULIO CHERY Primary Care ALLERGIES AND ADVERSE REACTIONS ALLERGIES AND ADVERSE REACTIONS Code System Allergy Substance Adverse Reaction Date Reaction (Severity) Comment Status Reported By Updated By sun light (Free Text Allergy) Rash (Moderate) active [id number] on September 27, 2023 4:37:20 PM UTC NKA (Free Text Allergy) Adverse reaction to substance Not Specified active [id number] on April 10, 2024 12:18:03 AM UTC FAMILY HISTORY RELATION: Father Status: Cause of : Unknown Age at : 74 SNOMED-CT Diagnosis Age At Onset [id number] Acute congestive heart failure [id number] Injury of lung RELATION: Mother Status: Cause of : Unknown Age at : 72 SNOMED-CT Diagnosis Age At Onset [id number] Myocardial infarction RELATION: Sister Status: LIVING SNOMED-CT Diagnosis Age At Onset [id number] Hypertensive disorder [id number] Back problem RESULTS Patient: MERLYN BOO Date of : 1965 1 LABORATORY RESULTS ORDER 100: UA AND MICRO/CULT IF INDICATED (LOINC: 44805-9) ORDER DATE: April 09, 2024 11:30:00 PM UTC Specimen Source: URINE Specimen Type: Urine specime n PERFORMING LAB: [facility] [address] [facility] [id number] Result Comment: Final Result Date: April 10, 2024 12:37:00 AM UTC (TECH: HC) LOINC TEST FLAG RESULT REFERENCE RANGE UPDA MANUEL BY 5778-6 Color of Urine N yellow YELLOW Febru ventura 2024 12:37:00 AM UTC (TECH: HC) 5767-9 Appearance of Urine N clear CLEAR April 10, 2024 12:37:00 AM UTC (TECH: Mowbly) 5792-7 Glucose [Mass/volume] in Urine by Test strip N 1000 NORMAL April 10, 2024 12:37:00 AM UTC (TECH: Mowbly) 33453-0 Bilirubin.total [Mass/volume] in Urine by Automated test strip N NEGATIVE NEGATIVE April 10, 2024 12:37:00 AM UTC (TECH: Mowbly) 5797-6 Ketones [Mass/volume] in Urine by Test strip N NEGATIVE NEGATIVE April 10, 2024 12:37:00 AM UTC (TECH: Mowbly) 2965-2 Specific gravity of Urine N 1.015 1.005 - 1.035 April 10, 2024 12:37:00 AM UTC (TECH: Mowbly) 63160-3 Erythrocytes [#/volume] in Urine by Automated test strip N NEGATIVE NEGATIVE April 10, 2024 12:37:00 AM UTC (TECH: Mowbly) 24410-9 pH of Urine by Automated test strip N 6.00 5.0 - 7.5 April 10, 2024 12:37:00 AM UTC (TECH: Mowbly) 56117-2 Protein [Presence] in Urine by Test strip N 15 (TRACE) mg/dL NEGATIVE April 10, 2024 12:37:00 AM UTC (TECH: Mowbly) 70080-3 Urobilinogen [Mass/volume] in Urine by Automated test strip N NORM NORMAL April 10, 2024 12:37:00 AM UTC (TECH: Mowbly) 68429-5 Nitrate [Presence] in Urine N NEGATIVE NEGATIVE April 10, 2024 12:37:00 AM UTC (TECH: Mowbly) 20105-2 Leukocytes [#/volume] in Urine by Test strip N NEGATIVE NEGATIVE April 10, 2024 12:37:00 AM UTC (TECH: Mowbly) 66322-3 Other elements in Urine sediment N NOT REQUIRED April 10, 2024 12:37:00 AM UTC (TECH: Mowbly) 67927-4 Microscopic observation [Identifier] in Urine sediment by Light microscopy N NO April 10, 2024 12:37:00 AM UTC (TECH: Mowbly) ORDER 200: CBC AUTO W DIFF ( LOINC: 11143-1) ORDER DATE: April 10, 2024 12:36:00 AM UTC Specimen Source: Whole Blood Specimen Type: Whole blood s ample PERFORMING LAB: [address] [id number] Result Comment: Final Result Date: April 10, 2024 1:25:00 AM UTC (TECH: Mowbly) LOINC TEST FLAG RESULT REFERENCE RANGE UPDA MANUEL BY 6690-2 Leukocytes [#/volume] in Blood by Automated count H 11.9 10^3/uL 4.5 10^3/uL - 11.5 10^3/uL April 10, 2024 1:25:00 AM UTC (TECH: Mowbly) 789-8 Erythrocytes [#/volume] in Blood by Automated count N 5.13 10^6/uL 4.25 10^6/uL - 5.57 10^6/uL April 10, 2024 1:25:00 AM UTC (TECH: Mowbly) 718-7 Hemoglobin [Mass/volume] in Blood N 13.8 g/dL 12.0 g/dL - 15.7 g/dL April 10, 2024 1:25:00 AM UTC (TECH: Mowbly) 95391-9 Hematocrit [Volume Fraction] of Blood N 42.2 % 36.0 % - 47.0 % April 10, 2024 1:25:00 AM UTC (TECH: Mowbly) 787-2 Erythrocyte mean corpuscular volume [Entitic volume] by Automated count N 82.3 fl 80 fl - 95 fl April 10, 2024 1:25:00 AM UTC (TECH: Mowbly) 06678-8 Erythrocyte mean corpuscular hemoglobin [Entitic mass] in Blood from Fetus by Automated count L 26.9 pg 27.0 pg - 34.0 pg April 10, 2024 1:25:00 AM UTC (TECH: Mowbly) 36168-4 Erythrocyte mean corpuscular hemoglobin concentration [Mass/volume] in Blood from Fetus by Automated count N 32.7 g/dL 32.0 g/dL - 36.0 g/dL April 10, 2024 1:25:00 AM UTC (TECH: Mowbly) 57509-0 Platelets [#/volume] in Blood N 320 10^3/uL 150 10^3/uL - 450 10^3/uL April 10, 2024 1:25:00 AM UTC (TECH: HC) 22414-9 Erythrocyte distribution width [Ratio] N 13.1 % 12.3 % - 15.1 % April 10, 2024 1:25:00 AM UTC (TECH: HC) 12646-4 Platelet mean volume [Entitic volume] in Blood by Automated count N 9.4 fl 7.4 fl - 10.4 fl April 10, 2024 1:25:00 AM UTC (TECH: HC) 93851-9 Granulocytes/100 leukocytes in Blood by Automated count N 59.2 % 40 % - 75 % April 10, 2024 1:25:00 AM UTC (TECH: HC) 736-9 Lymphocytes/100 leukocytes in Blood by Automated count N 30.0 % 15 % - 57 % April 10, 2024 1:25:00 AM UTC (TECH: HC) 5905-5 Monocytes/100 leukocytes in Blood by Automated count N 5.7 % 4.0 % - 12.0 % April 10, 2024 1:25:00 AM UTC (TECH: HC) 713-8 Eosinophils/100 leukocytes in Blood by Automated count N 3.5 % 0.0 % - 4.0 % April 10, 2024 1:25:00 AM UTC (TECH: HC) 706-2 Basophils/100 leukocytes in Blood by Automated count N 0.2 % 0.0 % - 1.0 % April 10, 2024 1:25:00 AM UTC (TECH: HC) 06749-0 Immature granulocytes [#/volume] in Blood H 1.4 % 0.0 % - 0.8 % April 10, 2024 1:25:00 AM UTC (TECH: HC) 78997-6 Granulocytes [#/volume] in Blood by Automated count N 7.02 10^3/uL April 10, 2024 1:25:00 AM UTC (TECH: HC) 731-0 Lymphocytes [#/volume] in Blood by Automated count N 3.56 10^3/uL April 10, 2024 1:25:00 AM UTC (TECH: HC) 742-7 Monocytes [#/volume] in Blood by Automated count N 0.68 10^3/uL April 10, 2024 1:25:00 AM UTC (TECH: HC) 711-2 Eosinophils [#/volume] in Blood by Automated count N 0.41 10^3/uL April 10, 2024 1:25:00 AM [facility] (TECH: Mowbly) 704-7 Basophils [#/volume] in Blood by Automated count N 0.02 10^3/uL April 10, 2024 1:25:00 AM [facility] ([employer]: Mowbly) 15481-5 Immature granulocytes [#/volume] in Blood N 0.16 10^3/uL April 10, 2024 1:25:00 AM [facility] ([employer]: Mowbly) 12174-5 Manual differential performed [Presence] in Blood N NO April 10, 2024 1:25:00 AM [facility] (TECH: Mowbly) ORDER 300: BASIC METABOLIC P MONI (LOINC: 13447-8) ORDER DATE: April 10, 2024 12:36:00 AM [facility] Specimen Source: Serum/Plasm a Specimen Type: Acellular blo od (serum or plasma) specimen PERFORMING LAB: [address] [id number] Result Comment: Final Result Date: April 10, 2024 1:30:00 AM [facility] (TECH: Mowbly) LOINC TEST FLAG RESULT REFERENCE RANGE UPDA MANUEL BY 2951-2 Sodium [Moles/volume] in Serum or Plasma L 134 mmol/L 136 mmol/L - 145 mmol/L April 10, 2024 1:30:00 AM [facility] (TECH: Mowbly) 2823-3 Potassium [Moles/volume] in Serum or Plasma N 4.3 mmol/L 3.5 mmol/L - 5.1 mmol/L April 10, 2024 1:30:00 AM [facility] (TECH: Mowbly) 5-0 Chloride [Moles/volume] in Serum or Plasma N 98 mmol/L 98 mmol/L - 107 mmol/L April 10, 2024 1:30:00 AM [facility] (TECH: Mowbly) 2027-9 Carbon dioxide, total [Moles/volume] in Serum or Plasma N 29 mmol/L 21 mmol/L - 32 mmol/L April 10, 2024 1:30:00 AM [facility] ([facility]: Mow[place]) 80618-7 Anion gap 3 in Serum or Plasma N 7.0 April 10, 2024 1:30:00 AM [facility] (TECH: Mowbly) 2345-7 Glucose [Mass/volume] in Serum or Plasma H 349 mg/dL 70 mg/dL - 110 mg/dL April 10, 2024 1:30:00 AM UTC (TECH: HC) 3094-0 Urea nitrogen [Mass/volume] in Serum or Plasma H 19 mg/dL 7 mg/dL - 18 mg/dL April 10, 2024 1:30:00 AM UTC (TECH: HC) 2160-0 Creatinine [Mass/volume] in Serum or Plasma H 1.1 mg/dL 0.6 mg/dL - 1.0 mg/dL April 10, 2024 1:30:00 AM UTC (TECH: HC) 3097-3 Urea nitrogen/Creatinin e [Mass Ratio] in Serum or Plasma N 17.3 9 - April 10, 2024 1:30:00 AM UTC (TECH: HC) 12524-2 Glomerular filtration rate/1.73 sq M.predicted by Creatinine-based formula (MDRD) L 59 mL/min >60 April 10, 2024 1:30:00 AM UTC (TECH: HC) 13645-7 Calcium [Mass/volume] in Serum or Plasma N 9.4 mg/dL 8.5 mg/dL - 10.1 mg/dL April 10, 2024 1:30:00 AM UTC (TECH: HC) ORDER 500: GLUCOSE BLD METER (LOINC: 57878-7) ORDER DATE: April 10, 2024 1:57:00 AM UTC Specimen Source: Whole Blood Specimen Type: Whole blood s ample PERFORMING LAB: [address] [id number] Result Comment: April 10, 2024 1:58:00 AM UTC Test performed by: [id number] ; Instrument: [id number] Final Result Date: April 10, 2024 1:57:00 AM UTC (TECH: HL7) LOINC TEST FLAG [place] [address]-2 Glucose [Mass/volume ] in Capillary blood by Glucometer H 313 mg/dl 70 mg/dl - 115 mg/dl April 10, 2024 1:57:00 AM [place] (TECH: HL7) LABORATORY NARRATIVE RESULTS Information is not available RADIOLOGY RESULTS ORDER 400: CT RENAL STONE [place] OTOCOL WO CON (LOINC: 60171-2) ORDER DATE: April 10, 2024 12:36:00 AM UTC PERFORMING LAB: [facility] [address] [id number] Final Result Date: April 10, 2024 1:53:[address] [place] [address] Name: EMA ZULETA Exam Date: 04/09/2024 : 1965 Age 58 years Gender: F Physician: NAOMI MOLINA Facility: [facility] Facility HSV: Outpatient Exam: CT RENAL STONE PROTOCOL WO CON FINAL REPORT TECHNIQUE: null CLINICAL HISTORY: right flank pain, dysuria,x 3 days, hx bipolar chest pain, copd, dyspnea, glaucoma, high bp, sleep apnea, diabetes, former smoker COMPARISON: null FINDINGS: CT abdomen and pelvis without contrast Comparison: CT/DOC/SR - CT ABD/PELVIS ORAL CONTR ONLY - 07/28/21 00:11 EDT Findings: Calcified mediastinal/hilar nodes, likely sequela of granulomatous disease. Hepatomegaly. Visceral organs are otherwise unremarkable. No bowel obstruction, pneumoperitoneum, or pneumatosis. Abdominoplasty with periumbilical fat containing hernias. Pelvic contents unremarkable. Normal appendix. No acute fracture. Postcholecystectomy. Focus IMPRESSION: IMPRESSION: No acute findings. Authenticated and [facility] Dictated By: Jose Head Transcribed By: Transcribed On: 04/09/2024 8:53 PM Electronically signed by: Jose Head 04/09/2024 Thank you for referring EMA ZULETA to [facility]. Legally authenticated by DORA KNAPP MD 2024-04-09 20:53:09 PATHOLOGY NARRATIVE RESULTS Information is not available MICROBIOLOGY RESULTS No Micro Labs/Results Exist for Patient BLOOD ADMIN RESULTS Information is not available MEDICATIONS HOME MEDICATIONS Status [facility]NORM [facility] Medication Dose Route Frequency Dates Comments Reported By Updated By Rachel cline Aspir-Low Tablet Delayed Release 81 MG 81.0 MG ORAL DAILY Last Dose: [id number] on April 10, 2024 12:18:03 AM [facility] Active FreeT extMe d glipiZIDE 5 MG 10.0 MG ORAL DAILY Last Dose: [id number] on April 10, 2024 12:18:04 AM [place] Active FreeT extMe d insulin lispro(RICHARD LOG) 100 UNIT/ML 0.0 SUBCUTA NEOUS SSPRN Last Dose: [id number] on April 10, 2024 12:18:04 AM [place] Active 741982 75894 17879 5 Lantus SoloStar Solution Pen-injecto r 100 UNIT/ML 50.0 UNT SUBCUTA NEOUS DAILY Last Dose: [id number] on April 10, 2024 12:18:04 AM UT Active 063912 22668 34050 1 Lisinopril Tablet 10 MG 10.0 MG ORAL DAILY Last Dose: [id number] on April 10, 2024 12:18:04 AM UT Active FreeT extMe d Mounjaro Solution Pen-injecto r 5 MG/0.5ML 5.0 MG SUBCUTA NEOUS QSAT Last Dose: once a week, sunday [id number] on April 10, 2024 12:18:04 AM [place] DISCHARGE MEDICATIONS Status [facility] Medication Dose Route Frequency Dates Comments Physician Updated By No Discharge Medication Info rmation Available INPATIENT MEDICATIONS Status [facility] Medication Dose Route Frequency Rat e Quantity Dates Comments Physician Updated By Discont inued [id number] 6625 9119 331 HYDROmorpho ne (DILAUDID) 1 MG/ML SOLN 1.0 MG INTRAV ENOUS ONE TIME ONLY Start: 2024 1:04:0 0 AM UT End: 2024 1:04:0 0 AM [place] JESSE Booker MD INTERFAC ED on April 10, 2024 1:02:00 AM UT Discont inued [id number] 4473 9379 501 ketorolac (TORADOL) 30 MG/ML SOLN 30.0 MG INTRAV ENOUS ONE TIME ONLY Start: 2024 1:04:0 0 AM UT End: 2024 1:04:0 0 AM UT JESSE Booker MD INTERFAC ED on April 10, 2024 1:02:00 AM UT SOCIAL HISTORY SOCIAL HISTORY SNOMED-CT Social History Element Description Effective Dates Offered Cessation Comment UpdatedBy [id number] Current Tobacco smoking status Former Smoker [id number] on April 10, 2024 12:18:32 AM [facility] [id number] Historical Tobacco smoking status Current Every Day Smoker [id number] on July 20, 2020 4:26:15 PM [facility] SOCIAL HISTORY - Gender Sex: Female SOCIAL HISTORY - Status : status i nformation is not available Intention in Next Year: intention information is not available SOCIAL HISTORY - Sexual Behavior Sexual Orientation Gender Identity SNOMED-CT Description SNO MED -CT Description Activity Level No of Partners Partner Type UpdatedBy Information is not available VITAL SIGNS PATIENT VITAL SIGNS This section displays the mo st recent value for each vital sign as of April 11, 2024 4:22:33 AM [facility] Loinc Code Vital Sign Activity Date Result Updated By 8867-4 Heart rate April 10, 2024 12:13:00 AM [facility] 88 /min [id number] on April 11, 2024 2:37:43 AM [facility] 8462-4 Diastolic blood pressure April 10, 2024 12:13:00 AM [facility] 74.0 mm[Hg] [id number] on April 11, 2024 2:37:43 AM [facility] 16903-9 Oxygen saturation in Arterial blood by Pulse oximetry April 10, 2024 12:13:00 AM [facility] 96.0 % [id number] on April 11, 2024 2:37:43 AM [facility] 9279-1 Respiratory rate April 10 12:13:00 AM [facility] 20 /min [id number] on April 11, 2024 2:37:43 AM [facility] 8480-6 Systolic blood pressure April 10, 2024 12:13:00 AM [facility] 147.0 mm[Hg] [id number] on April 11, 2024 2:37:43 AM [facility] PEDIATRIC GROWTH CHART - VITAL SIGNS This section displays Head C ircumference Percentile, Weight for Length Percentile and BMI Percentile Loinc Code Pediatric Measure Age (Months) Result Updat ed By No Pediatric Growth Chart Pe rcentile Information Available. HEALTH CONCERNS Problems Concern Status Health Concern problem infor mation not available. Smoking Status Status Years Used Consumed packs p er day Health Concern smoking histo ry information not available. Family History Concern Status Health Concern family histor y information not available. ENCOUNTERS ENCOUNTER INFORMATION Reason for Visit FLANK PAIN Admission April 09, 2024 10:39:00 PM UTC [address] [id number] Discharge April 10, 2024 2:36:00 AM UTC DISCHARGED TO HOME OR SELF CARE ENCOUNTER DIAGNOSES Notes information is not yaritza ilable. Code System Diagnosis Onset Date Diagnosis information is not available. ABSTRACT DIAGNOSES Code System Diagnosis Updated By R10.9 ICD10 UNSPECIFIED ABDOMINAL PAIN N [id number] on April 11, 2024 4:21:40 AM UTC R30.0 ICD10 DYSURIA [id number] on 2024 4:21:40 AM UTC R31.9 ICD10 HEMATURIA, UNSPECIFIED [id number] on April 11, 2024 4:21:40 AM UTC R10.9 ICD10 UNSPECIFIED ABDOMINAL PAIN N [id number] on April 11, 2024 4:21:40 AM UTC E11.65 ICD10 TYPE 2 DIABETES MELLITUS WITH HYPERGLYCEMIA [id number] on April 11, 2024 4:21:40 AM UTC I10 ICD10 ESSENTIAL (PRIMARY) HYPERTEN EDDIE [id number] on April 11, 2024 4:21:40 AM UTC Z87.891 ICD10 PERSONAL HISTORY OF NICOTINE DEPENDENCE [id number] on April 11, 2024 4:21:40 AM UTC Z79.82 ICD10 SATURATION DIVER (CURRENT) USE OF A SPIRIN [id number] on April 11, 2024 4:21:40 AM UTC Z79.4 ICD10 MCC (CURRENT) USE OF I NSULIN [id number] on April 11, 2024 4:21:40 AM UTC Z79.85 ICD10 LONG-TERM (CURRE NT) USE OF INJECTABLE NON-INSULIN ANTIDIABETIC DRUGS [id number] on April 11, 2024 4:21:40 AM UTC Z79.84 ICD10 MCC (CURRE NT) USE OF ORAL HYPOGLYCEMIC DRUGS [id number] on April 11, 2024 4:21:40 AM UTC Z79.899 ICD10 OTHER SATURATION DIVER (CURRENT) DR TANA MCDONALD [id number] on April 11, 2024 4:21:40 AM [facility] CARE TEAM Care Oxidation Engineer Role NAOMI MOLINA Admitting NAOMI MOLINA Referring NAOMI MOLINA Primary Attending JULIO CHERY Primary Care CARE TEAM CARE supply chain business analyst Role on Team Status Start Date End Date Update d By JESSE Booker MD Referring normal April 10, 2024 12:08:41 AM UT April 10, 2024 2:36:00 AM UTC [id number] on April 10, 2024 12:08:41 AM [facility] JESSE Booker MD Attending normal April 10, 2024 12:08:41 AM UT April 10, 2024 2:36:00 AM UTC [id number] on April 10, 2024 12:08:41 AM [facility] JESSE Booker MD Admitting normal April 10, 2024 12:08:41 AM UT April 10, 2024 2:36:00 AM UTC [id number] on April 10, 2024 12:08:41 AM [facility] MIRI WATKINSP PCP normal April 09, 2024 10:39:26 PM UT April 10, 2024 2:36:00 AM UTC [id number] on April 10, 2024 12:08:41 AM [facility]
--- OUTSIDE RECORDS SUMMARY | 2024-07-09 16:08 | XMS_ITS | Continuity of Care Document ---
Author Organization [facility] Phone Care Team Providers Care Shank Cementer Hand Name Role Phone JULIO CHERY Keyla Primary Care EILEEN MCKEON Unavailable EILEEN MCKEON Primary Attending [phone] EILEEN MCKEON Admitting ALLERGIES AND ADVERSE REACTIONS ALLERGIES AND ADVERSE REACTIONS Code System Allergy Substance Adverse Reaction Date Reaction (Severity) Comment Status Reported By Updated By NKA (Free Text Allergy) Adverse reaction to substance Not Specified active [id number] on June 23, 2024 8:27:10 PM UTC FAMILY HISTORY RELATION: Father Status: Cause of : Unknown Age at : 74 SNOMED-CT Diagnosis Age At Onset [id number] Acute congestive heart failure [id number] Injury of lung RELATION: Mother Status: Cause of : Unknown Age at : 72 SNOMED-CT Diagnosis Age At Onset [id number] Myocardial infarction RELATION: Sister Status: LIVING SNOMED-CT Diagnosis Age At Onset [id number] Hypertensive disorder [id number] Back problem RESULTS Patient: MERLYN BOO Date of : 1965 1 LABORATORY RESULTS ORDER 100: UA AND MICRO/CULT IF INDICATED (LOINC: 07033-1) ORDER DATE: June 23, 2024 8:22:00 PM UTC Specimen Source: URINE Specimen Type: Urine specime n [facility]FORMING [facility] [id number] Result Comment: Final Result Date: June 23, 2024 8:26:00 PM UTC (TECH: [facility]) LOINC TEST FLAG RESULT REFERENCE RANGE UPDA MANUEL BY 5778-6 Color of Urine N yellow YELLOW June 23, 2024 8:26:00 PM UTC (TECH: [facility]) 5767-9 Appearance of Urine N clear CLEAR June 23, 2024 8:26:00 PM UTC (TECH: [facility]) 5792-7 Glucose [Mass/volume ] in Urine by Test strip N 1000 NORMAL June 23, 2024 8:26:00 PM UTC (TECH: [facility]) 53904-2 Bilirubin.total [Mass/volume] in Urine by Automated test strip N NEGATIVE NEGATIVE June 23, 2024 8:26:00 PM UTC (TECH: [employer]) 5797-6 Ketones [Mass/volume ] in Urine by Test strip N NEGATIVE NEGATIVE June 23, 2024 8:26:00 PM UTC (TECH: [facility]) 2965-2 Specific gravity of Urine N 1.005 1.005 - 1.035 June 23, 2024 8:26:00 PM UTC (TECH: [employer]) 78325-2 Erythrocytes [#/volume] in Urine by Automated test strip N NEGATIVE NEGATIVE June 23 8:26:00 PM UTC (TECH: [employer]) 87390-7 pH of Urine by Automated test strip N 7.00 5.0 - 7.5 June 23 025 8:26:00 PM UTC (TECH: [facility]) 10332-0 Protein [Presence] i n Urine by Test strip N 15 (TRACE) mg/dL NEGATIVE June 23 8:26:00 PM UTC (TECH: [facility]) 97179-3 Urobilinogen [Mass/volume] in Urine by Automated test strip N NORM NORMAL June 23, 2024 8:26:00 PM UTC (TECH: [employer]) 50034-6 Nitrate [Presence] i n Urine N NEGATIVE NEGATIVE June 23, 2024 8:26:00 PM UTC (TECH: [facility]) 08132-3 Leukocytes [#/volume ] in Urine by Test strip N NEGATIVE NEGATIVE June 23, 2024 8:26:00 PM UTC (TECH: [facility] [employer] [facility]) 71013-6 Other elements in Urine sediment N NOT REQUIRED June 23, 2024 8:26:00 PM UTC (TECH: [facility]) 04818-7 Microscopic observation [Identifier] in Urine sediment by Light microscopy N NO June 23, 2024 8:26:00 PM UTC (TECH: [facility]) LABORATORY NARRATIVE RESULTS Information is not available RADIOLOGY RESULTS ORDER 200: CT RENAL STONE W[place] OTOCOL WO CON (LOINC: 81082-4) ORDER DATE: June 23, 2024 8:22:00 PM [facility] [address] [place] [id number] Final Result Date: June 23, 2024 8:33:[address] [place] [address] Name: EMA ZULETA Exam Date: 06/23/2024 : 1965 Age 58 years Gender: F Physician: Facility: [facility] Facility HSV: Outpatient Exam: CT RENAL STONE PROTOCOL WO CON EXAMINATION: CT ABDOMEN PELVIS WITHOUT IV CONTRAST RENAL CALCULI INDICATION:58 years Female 1965 right flank pain COMPARISON(S): CT abdomen pelvis 04/09/2024. TECHNIQUE: CT abdomen and pelvis. One or more of the following dose-optimizing techniques was utilized for this exam: automated exposure control, adjustment of the mA and/or kV according to patient size, and/or use of iterative reconstruction technique. Contrast: As stated in examination. FINDINGS: SUPPORT DEVICES: None. LOWER CHEST: Normal. ABDOMEN/PELVIS: Liver: No acute finding. Gallbladder/biliary: Postcholecystectomy. No biliary ductal dilation. Pancreas: No pancreatitis. Spleen: Normal. Adrenal glands: No acute finding. Kidneys and ureters: No acute finding. Bladder: Decompressed, limiting evaluation. Reproductive organs: Normal for age. Stomach/bowel: No obstruction or focal inflammation. Appendix: No appendicitis. Lymph nodes: No lymphadenopathy. Peritoneum: No intraperitoneal free air or significant fluid. Vessels: Atherosclerosis of the abdominal aorta and major branches. MUSCULOSKELETAL: Abdominal wall: Postsurgical changes of the ventral abdominal wall. Bones: No acute osseous abnormality. IMPRESSION: No acute abdominal/pelvic abnormality. Electronically signed by: Genaro Chase DO 06/23/2024 04:53 PM EDT Dictated By: Genaro Chase Transcribed By: Transcribed On: 06/23/2024 4:33 PM Electronically signed by: Genaro Chase 06/23/2024 Thank you for referring EMA ZULETA to [facility]. Legally authenticated by ARTURO PARK MD 2024-06-23 16:33:58 PATHOLOGY NARRATIVE RESULTS Information is not available MICROBIOLOGY RESULTS No Micro Labs/Results Exist for Patient BLOOD ADMIN RESULTS Information is not available MEDICATIONS HOME MEDICATIONS Status RXNORM ND Medication Dose Route Frequency Dates Comments Reported By Updated By Active [employer] xt[employer] insulin lispro(RICHARD LOG) 100 UNIT/ML 0.0 SUBCUTA NEOUS SSPRN Last Dose: [id number] on June 23, 2024 8:27:12 PM [facility] Active 348294 251328 50384 Lantus SoloStar Solution Pen-injecto r 100 UNIT/ML 50.0 UNT SUBCUTA NEOUS DAILY Last Dose: [id number] on June 23, 2024 8:27:12 PM [facility] Active [employer] [facility] Mounjaro Solution Pen-injecto r 5 MG/0.5ML 5.0 MG SUBCUTA NEOUS QSAT Last Dose: once a week, sundays [id number] on June 23, 2024 8:27:12 PM [facility] Active 511692 508490 75427 Lisinopril Tablet 10 MG 10.0 MG ORAL DAILY Last Dose: [id number] on June 23, 2024 8:27:13 PM [facility] Active [employer] glipiZIDE 5 MG 10.0 MG ORAL DAILY Last Dose: [id number] on June 23, 2024 8:27:13 PM [facility] Active [employer]Te [employer] Aspir-Low Tablet Delayed Release 81 MG 81.0 MG ORAL DAILY Last Dose: [id number] on June 23, 2024 8:27:13 PM [facility] Active 074691 899871 90742 Prilosec OTC 20 mg tablet, delayed release (enteric coated) 1.0 TAB ORAL DAILY Last Dose: [id number] on June 23, 2024 8:27:13 PM [facility] Active [employer]Te [employer] Wellbutrin SR oral 0.0 DAILY Last Dose: [id number] on June 23, 2024 8:27:13 PM [facility] DISCHARGE MEDICATIONS Status RXNORM ND Medication Dose Route Frequency Dates Comments Physician Updated By No Discharge Medication Info rmation Available INPATIENT MEDICATIONS Status RXNORM ND Medication Dose Route Frequency Rat e Quantity Dates Comments Physician Updated By [facility] [id number] 1407 504 ketorolac (TORADOL) 60 MG/2ML SOLN 60.0 MG INTRAM USCULA R ONE TIME ONLY Start: June 23, 2024 8:37:0 0 PM UTC End: June 23, 2024 8:37:0 0 PM UTC LINDA ARELLANO MD INTERFAC ED on June 23, 2024 8:37:00 PM UTC Discont inued 997704 0639 1618 210 orphenadrin e (NORFLEX) 60 MG/2ML SOLN 60.0 MG INTRAV ENOUS ONE TIME ONLY Start: June 23, 2024 8:37:0 0 PM UTC End: June 23, 2024 8:37:0 0 PM UTC LINDA ARELLANO MD INTERFAC ED on June 23, 2024 8:37:00 PM UTC Discont inued [id number] 1851 9379 601 ketorolac (TORADOL) 60 MG/2ML SOLN 60.0 MG INTRAM USCULA R ONE TIME ONLY Start: June 23, 2024 8:39:0 0 PM UTC End: June 23, 2024 8:39:0 0 PM UTC LINDA ARELLANO MD INTERFAC ED on June 23, 2024 8:38:00 PM [place] SOCIAL HISTORY SOCIAL HISTORY SNOMED-CT Social History Element Description Effective Dates Offered Cessation Comment UpdatedBy [id number] Current Tobacco smoking status Former Smoker [id number] on June 23, 2024 8:27:43 PM [place] [id number] Historical Tobacco smoking status Current Every Day Smoker [id number] on July 20, 2020 4:26:15 PM [place] SOCIAL HISTORY - Gender Sex: Female SOCIAL [...] value for each vital sign as of June 25, 2024 4:32:03 AM [place] Loinc Code Vital Sign Activity Date Result Updated By 8310-5 Body temperature June 23, 2024 9:53:49 PM UTC 98.6 [degF] [id number] on June 24, 2024 9:56:44 PM UTC 48315-1 Body weight Measured June 23 8:22:47 PM UTC 104.0 kg (229.0 lb) [id number] on June 23, 2024 8:22:47 PM UTC 8462-4 Diastolic blood pressure June 23, 2024 9:53:49 PM UTC 73.0 mm[Hg] [id number] on June 24, 2024 9:56:44 PM UTC 8867-4 Heart rate June 23, 2024 9:53:49 PM UTC 88 /min [id number] on June 24, 2024 9:56:44 PM UTC 34257-7 Oxygen saturation in Arterial blood by Pulse oximetry June 23, 2024 9:53:49 PM UTC 96.0 % [id number] on June 24, 2024 9:56:44 PM UTC 9279-1 Respiratory rate June 23, 2024 9:53:49 PM UTC 18 /min [id number] on June 24, 2024 9:56:44 PM UTC 8480-6 Systolic blood pressure June 23, 2024 9:53:49 PM UTC 140.0 mm[Hg] [id number] on June 24, 2024 9:56:44 PM UTC PEDIATRIC GROWTH CHART - VITAL SIGNS This [...] INFORMATION Reason for Visit FLANK PAIN Admission June 23, 2024 8:02:00 PM UTC [address] [address] Discharge June 23, 2024 9:56:00 PM UTC DI SCHARGED TO HOME OR SELF CARE ENCOUNTER DIAGNOSES Notes information is not yaritaz ilable. Code System Diagnosis Onset Date Diagnosis information is not available. ABSTRACT DIAGNOSES Code System Diagnosis Updated By R10.9 ICD10 UNSPECIFIED ABDOMINAL PAIN B [id number] on June 25, 2024 4:31:19 AM [place] M54.50 ICD10 LOW BACK PAIN, UNSPECIFIED B [id number] on June 25, 2024 4:31:19 AM [facility] S39.012A ICD10 STRAIN OF MUSCLE , FASCIA AND TENDON OF LOWER BACK, INITIAL ENCOUNTER [id number] on June 25, 2024 4:31:19 AM [place] I10 ICD10 ESSENTIAL (PRIMARY) HYPERTEN EDDIE [id number] on June 25, 2024 4:31:19 AM [place] E11.9 ICD10 TYPE 2 DIABETES MELLITUS WITHOUT COMPLICATIONS [id number] on June 25, 2024 4:31:19 AM [place] F31.9 ICD10 BIPOLAR DISORDER, UNSPECIFIE D [id number] on June 25, 2024 4:31:19 AM [facility] Z90.49 ICD10 ACQUIRED ABSENCE OF OTHER SPECIFIED PARTS OF DIGESTIVE TRACT [id number] on June 25, 2024 4:31:19 AM [facility] Z87.891 ICD10 PERSONAL HISTORY OF NICOTINE DEPENDENCE [id number] on June 25, 2024 4:31:19 AM [facility] Z79.4 ICD10 ABORIGINAL CEREMONIAL CELEBRANT (CURRENT) USE OF I NSULIN [id number] on June 25, 2024 4:31:19 AM [facility] Z79.84 ICD10 ABORIGINAL CEREMONIAL CELEBRANT (CURRE NT) USE OF ORAL HYPOGLYCEMIC DRUGS [id number] on June 25, 2024 4:31:19 AM [facility] Z79.82 ICD10 ABORIGINAL CEREMONIAL CELEBRANT (CURRENT) USE OF A SPIRIN [id number] on June 25, 2024 4:31:19 AM [facility] Z79.85 ICD10 LONG-TERM (CURRE NT) USE OF INJECTABLE NON-INSULIN ANTIDIABETIC DRUGS [id number] on June 25, 2024 4:31:19 AM [facility] Z79.899 ICD10 OTHER ABORIGINAL CEREMONIAL CELEBRANT (CURRENT) DR FAJARDO THERAPY [id number] on June 25, 2024 4:31:19 AM [facility] X58.XXXA ICD10 EXPOSURE TO OTHE R SPECIFIED FACTORS, INITIAL ENCOUNTER [id number] on June 25, 2024 4:31:19 AM [facility] CARE TEAM Care Shank Cementer Hand Role JULIO CHERY Primary Care EILEEN MCKEON Referring EILEEN MCKEON Primary Attending EILEEN MCKEON Admitting CARE TEAM CARE leak detection engineer Role on Team Status Start Date End Date Update d By LINDA ARELLANO MD Referring normal June 23, 2024 9:23:07 PM [facility] June 23, 2024 9:56:00 PM [facility] [id number] on June 23, 2024 9:23:07 PM [facility] LINDA ARELLANO MD Attending normal June 23, 2024 9:23:07 PM [place] June 23, 2024 9:56:00 PM [facility] [id number] on June 23, 2024 9:23:07 PM [facility] LINDA ARELLANO MD Admitting normal June 23, 2024 9:23:07 PM [facility] June 23, 2024 9:56:00 PM [facility] [id number] on June 23, 2024 9:23:07 PM [facility] normal June 23, 2024 8:02:59 PM UT June 23, 2024 9:56:00 PM [facility] [id number] on June 23, 2024 9:23:07 PM [facility]
--- OUTSIDE RECORDS SUMMARY | 2024-07-09 16:08 | XMS_ITS | Continuity of Care Document ---
Author Organization [facility] Phone Care Team Providers Care Accountant Bookkeeper Name Role Phone EILEEN MCKEON Admitting EILEEN MCKEON Primary Attending EILEEN MCKEON Unavailable UJLIO CHERY Primary Care ALLERGIES AND ADVERSE REACTIONS ALLERGIES AND ADVERSE REACTIONS Code System Allergy Substance Adverse Reaction Date Reaction (Severity) Comment Status Reported By Updated By NKA (Free Text Allergy) Adverse reaction to substance Not Specified active [id number] on June 25, 2024 11:58:59 PM UTC FAMILY HISTORY RELATION: Father Status: Cause of : Unknown Age at : 74 SNOMED-CT Diagnosis Age At Onset [id number] Acute congestive heart failure [id number] Injury of lung RELATION: Mother Status: Cause of : Unknown Age at : 72 SNOMED-CT Diagnosis Age At Onset [id number] Myocardial infarction RELATION: Sister Status: LIVING SNOMED-CT Diagnosis Age At Onset [id number] Hypertensive disorder [id number] Back problem RESULTS Patient: MERLYN BOO Date of : 1965 1 LABORATORY RESULTS ORDER 100: UA AND MICRO/CULT IF INDICATED (LOINC: 65682-1) ORDER DATE: June 26, 2024 12:06:00 AM UTC Specimen Source: URINE Specimen Type: Urine specime n PERFORMING LAB: [facility] [id number] Result Comment: Final Result Date: June 26, 2024 1:22:00 AM UTC (TECH: SLB) LOINC TEST FLAG RESULT REFERENCE RANGE UPDA MANUEL BY 5778-6 Color of Urine N yellow YELLOW June 26, 2024 1:22:00 AM UTC (TECH: SLB) 5767-9 Appearance of Urine N SL.HAZY CLEAR June 26, 2024 1:22:00 AM UTC (TECH: SLB) 5792-7 Glucose [Mass/volume] in Urine by Test strip N 1000 NORMAL June 26, 2024 1:22:00 AM UTC (TECH: SLB) 62016-0 Bilirubin.total [Mass/volume] in Urine by Automated test strip N NEGATIVE NEGATIVE June 26, 2024 1:22:00 AM UTC (TECH: SLB) 5797-6 Ketones [Mass/volume] in Urine by Test strip N NEGATIVE NEGATIVE June 26, 2024 1:22:00 AM UTC (TECH: SLB) 2965-2 Specific gravity of Urine N 1.010 1.005 - 1.035 June 26, 2024 1:22:00 AM UTC (TECH: SLB) 00334-5 Erythrocytes [#/volume] in Urine by Automated test strip N 10 (TRACE) /mcL NEGATIVE June 26, 2024 1:22:00 AM UTC (TECH: SLB) 14701-6 pH of Urine by Automated test strip N 5.00 5.0 - 7.5 June 26, 2024 1:22:00 AM UTC (TECH: SLB) 60031-6 Protein [Presence] in Urine by Test strip N 30 (1+) mg/dL NEGATIVE June 26, 2024 1:22:00 AM UTC (TECH: SLB) 36040-5 Urobilinogen [Mass/volume] in Urine by Automated test strip N NORM NORMAL June 26, 2024 1:22:00 AM UTC (TECH: SLB) 91164-0 Nitrate [Presence] in Urine N NEGATIVE NEGATIVE June 26, 2024 1:22:00 AM UTC (TECH: SLB) 71664-0 Leukocytes [#/volume] in Urine by Test strip N NEGATIVE NEGATIVE June 26, 2024 1:22:00 AM UTC (TECH: SLB) 53442-0 Other elements in Urine sediment N NOT REQUIRED June 26, 2024 1:22:00 AM UTC (TECH: SLB) 98117-0 Microscopic observation [Identifier] in Urine sediment by Light microscopy N YES June 26, 2024 1:22:00 AM UTC (TECH: SLB) 61373-8 Erythrocytes [#/area] in Urine sediment by Microscopy high power field N 1-5 0-3 June 26, 2024 1:22:00 AM UTC (TECH: SLB) 5821-4 Leukocytes [#/area] in Urine sediment by Microscopy high power field N 1-5 NONE SEEN June 26, 2024 1:22:00 AM UTC (TECH: SLB) 82872-5 Epithelial cells.squamous [#/area] in Urine sediment by Microscopy high power field N 5-10 NONE SEEN June 26, 2024 1:22:00 AM UTC (TECH: SLB) 5769-5 Bacteria [#/area] in Urine sediment by Microscopy high power field N TRACE NONE SEEN June 26, 2024 1:22:00 AM UTC (TECH: SLB) ORDER 200: CBC AUTO W DIFF ( LOINC: 86984-9) ORDER DATE: June 26, 2024 12:08:00 AM UTC Specimen Source: Whole Blood Specimen Type: Whole blood s ample PERFORMING LAB: [address] [id number] Result Comment: Final Result Date: June 26, 2024 12:40:00 AM UTC (TECH: HC) LOINC TEST FLAG RESULT REFERENCE RANGE UPDA MANUEL BY 6690-2 Leukocytes [#/volume] in Blood by Automated count N 9.0 10^3/uL 4.5 10^3/uL - 11.5 10^3/uL June 26, 2024 12:40:00 AM UTC (TECH: HC) 789-8 Erythrocytes [#/volume] in Blood by Automated count N 4.41 10^6/uL 4.25 10^6/uL - 5.57 10^6/uL June 26, 2024 12:40:00 AM UTC (TECH: HC) 718-7 Hemoglobin [Mass/volume] in Blood L 11.8 g/dL 12.0 g/dL - 15.7 g/dL June 26, 2024 12:40:00 AM UTC (TECH: HC) 21685-1 Hematocrit [Volume Fraction] of Blood N 37.1 % 36.0 % - 47.0 % June 26 12:40:00 AM UTC (TECH: HC) 787-2 Erythrocyte mean corpuscular volume [Entitic volume] by Automated count N 84.1 fl 80 fl - 95 fl June 26, 2024 12:40:00 AM UTC (TECH: HC) 53128-4 Erythrocyte mean corpuscular hemoglobin [Entitic mass] in Blood from Fetus by Automated count L 26.8 pg 27.0 pg - 34.0 pg June 26, 2024 12:40:00 AM UTC (TECH: HC) 75548-5 Erythrocyte mean corpuscular hemoglobin concentration [Mass/volume] in Blood from Fetus by Automated count L 31.8 g/dL 32.0 g/dL - 36.0 g/dL June 26, 2024 12:40:00 AM UTC (TECH: HC) 90234-3 Platelets [#/volume] in Blood N 306 10^3/uL 150 10^3/uL - 450 10^3/uL June 26, 2024 12:40:00 AM UTC (TECH: HC) 67116-1 Erythrocyte distribution width [Ratio] N 14.0 % 12.3 % - 15.1 % June 26, 2024 12:40:00 AM UTC (TECH: HC) 17264-4 Platelet mean volume [Entitic volume] in Blood by Automated count N 9.4 fl 7.4 fl - 10.4 fl June 26, 2024 12:40:00 AM UTC (TECH: HC) 50611-1 Granulocytes/100 leukocytes in Blood by Automated count N 52.8 % 40 % - 75 % June 26 12:40:00 AM UTC (TECH: HC) 736-9 Lymphocytes/100 leukocytes in Blood by Automated count N 33.0 % 15 % - 57 % June 26 12:40:00 AM UTC (TECH: HC) 5905-5 Monocytes/100 leukocytes in Blood by Automated count N 6.6 % 4.0 % - 12.0 % June 26 12:40:00 AM UTC (TECH: HC) 713-8 Eosinophils/100 leukocytes in Blood by Automated count H 6.9 % 0.0 % - 4.0 % June 26 12:40:00 AM UTC (TECH: HC) 706-2 Basophils/100 leukocytes in Blood by Automated count N 0.4 % 0.0 % - 1.0 % June 26 12:40:00 AM UTC (TECH: HC) 21469-6 Immature granulocytes [#/volume] in Blood N 0.3 % 0.0 % - 0.8 % June 26 12:40:00 AM UTC (TECH: HC) 35042-4 Granulocytes [#/volume] in Blood by Automated count N 4.77 10^3/uL June 26 12:40:00 AM UTC (TECH: HC) 731-0 Lymphocytes [#/volume] in Blood by Automated count N 2.98 10^3/uL June 26 12:40:00 AM UTC (TECH: HC) 742-7 Monocytes [#/volume] in Blood by Automated count N 0.60 10^3/uL June 26, 2024 12:40:00 AM UTC (TECH: HC) 711-2 Eosinophils [#/volume] in Blood by Automated count N 0.62 10^3/uL June 26 12:40:00 AM UTC (TECH: HC) 704-7 Basophils [#/volume] in Blood by Automated count N 0.04 10^3/uL June 26, 2024 12:40:00 AM UTC (TECH: HC) 08364-9 Immature granulocytes [#/volume] in Blood N 0.03 10^3/uL June 26 12:40:00 AM UTC (TECH: HC) 36465-8 Manual differential performed [Presence] in Blood N NO June 26, 2024 12:40:00 AM UTC (TECH: HC) ORDER 300: COMP METABOLIC PA RAGINI (LOINC: 81591-0) ORDER DATE: June 26, 2024 12:08:00 AM UT Specimen Source: Serum/Plasm a Specimen Type: Acellular blo od (serum or plasma) specimen PERFORMING LAB: [address] [id number] Result Comment: Final Result Date: June 26, 2024 1:08:00 AM UT (TECH: SLB) LOINC TEST FLAG RESULT REFERENCE RANGE UPDA MANUEL BY 2951-2 Sodium [Moles/volume ] in Serum or Plasma N 136 mmol/L 136 mmol/L - 145 mmol/L June 26, 2024 1:08:00 AM UTC (TECH: SLB) 2823-3 Potassium [Moles/volume] in Serum or Plasma N 4.5 mmol/L 3.5 mmol/L - 5.1 mmol/L June 26, 2024 1:08:00 AM UT (TECH: SLB) 2075-0 Chloride [Moles/volu me] in Serum or Plasma N 101 mmol/L 98 mmol/L - 107 mmol/L June 26, 2024 1:08:00 AM UT (TECH: SitesimonB) 2027-9 Carbon dioxide, tota l [Moles/volume] in Serum or Plasma N 28 mmol/L 21 mmol/L - 32 mmol/L June 26, 2024 1:08:00 AM UT (TECH: SitesimonB) 62665-8 Anion gap 3 in Serum or Plasma N 7.0 June 26, 2024 1:08:00 AM [facility] (TECH: SitesimonB) 2345-7 Glucose [Mass/volume ] in Serum or Plasma H 381 mg/dL 70 mg/dL - 110 mg/dL June 26, 2024 1:08:00 AM [facility] (TECH: SitesimonB) 3094-0 Urea nitrogen [Mass/volume] in Serum or Plasma N 14 mg/dL 7 mg/dL - 18 mg/dL June 26, 2024 1:08:00 AM [facility] (TECH: SitesimonB) 2160-0 Creatinine [Mass/volume] in Serum or Plasma H 1.1 mg/dL 0.6 mg/dL - 1.0 mg/dL June 26, 2024 1:08:00 AM [facility] (TECH: SitesimonB) 3097-3 Urea nitrogen/Creatinine [Mass Ratio] in Serum or Plasma N 12.7 9 - June 26, 2024 1:08:00 AM [facility] (TECH: SitesimonB) 64146-8 Glomerular filtratio n rate/1.73 sq M.predicted by Creatinine-based formula (MDRD) L 59 mL/min >60 June 26, 2024 1:08:00 AM [facility] (TECH: SitesimonB) 40840-4 Osmolality of Serum or Plasma by calculated by sum of electrolytes N 299 mosm/kg 275 mosm/kg - 301 mosm/kg June 26, 2024 1:08:00 AM [facility] (TECH: SLB) 2885-2 Protein [Mass/volume ] in Serum or Plasma N 6.4 g/dL 6.4 g/dL - 8.2 g/dL June 26, 2024 1:08:00 AM [facility] (TECH: Memeoirs) 1751-7 Albumin [Mass/volume ] in Serum or Plasma L 3.0 g/dL 3.4 g/dL - 5.0 g/dL June 26, 2024 1:08:00 AM [facility] (TECH: Memeoirs) 55822-6 Calcium [Mass/volume ] in Serum or Plasma N 8.9 mg/dL 8.5 mg/dL - 10.1 mg/dL June 26, 2024 1:08:00 AM [facility] (TECH: SitesimonB) 46063-0 Calcium [Mass/volume ] corrected for total protein in Serum or Plasma N 9.7 mg/dL 8.5 mg/dL - 10.1 mg/dL June 26, 2024 1:08:00 AM [facility] (TECH: Memeoirs) 1975-2 Bilirubin.total [Mass/volume] in Serum or Plasma L 0.2 mg/dL 0.4 mg/dL - 1.5 mg/dL June 26, 2024 1:08:00 AM [facility] (TECH: SitesimonB) 1920-8 Aspartate aminotransferase [Enzymatic activity/volume] in Serum or Plasma N 17 U/L 15 U/L - 37 U/L June 26, 2024 1:08:00 AM [facility] (TECH: SitesimonB) 1742-6 Alanine aminotransferase [Enzymatic activity/volume] in Serum or Plasma N 34 U/L 12 U/L - 78 U/L June 26, 2024 1:08:00 AM [facility] (TECH: SitesimonB) 6768-6 Alkaline phosphatase [Enzymatic activity/volume] in Serum or Plasma H 191 U/L 50 U/L - 120 U/L June 26, 2024 1:08:00 AM [facility] (TECH: SitesimonB) ORDER 400: LIPASE (LOINC: 30 40-3) ORDER DATE: June 26, 2024 12:08:00 AM [facility] Specimen Source: Serum/Plasm a Specimen Type: Acellular blo od (serum or plasma) specimen PERFORMING LAB: [address] [id number] Result Comment: Final Result Date: June 26, 2024 1:09:00 AM [facility] (TECH: SLB) LOINC TEST FLAG RESULT REFERENCE RANGE UPDA MANUEL BY 3040-3 Lipase [Enzymatic activity/volume] in Serum or Plasma N 61 U/L 16 U/L - 77 U/L June 26, 2024 1 :09:00 AM [facility] (TECH: SLB) LABORATORY NARRATIVE RESULTS Information is not available RADIOLOGY RESULTS ORDER 500: CT ABD/PELVIS WIT H IV CONTRAST (LOINC: 80969-0) ORDER DATE: June 26, 2024 12:08:00 AM [facility] PERFORMING LAB: [address] [id number] Final Result Date: June 26, 2024 2:37:[address] [place] [address] Name: MERLYNEMA SHAH Exam Date: 06/25/2024 : 1965 Age 58 years Gender: F Physician: EILEEN MCKEON Facility[facility] Facility HSV: Outpatient Exam: CT ABD/PELVIS WITH IV CONTRAST FINAL REPORT TECHNIQUE: null CLINICAL HISTORY: Flank Pain Right Side, c/ rt side /back pain, seen in er x 2 for same complaint, taking meds but no improvement, pain worsened by movement, hx bipolar, chest pain, copd, dyspnea, glaucoma, high bp, sleep apnea, diabetes, nonsmoker COMPARISON: null FINDINGS: Exam: CT Abdomen and Pelvis with contrast Comparison: None Clinical history: Right flank pain Findings: Hepatomegaly. The spleen and pancreas do not demonstrate any acute process. Prior cholecystectomy No choledocholithiasis or biliary obstruction. Normal adrenal glands. No renal calculi or hydronephrosis. No abdominal aortic aneurysm. No small bowel obstruction Appendix is not identified and may have been previously removed. No CT evidence for acute appendicitis No colitis or diverticulitis. Moderate colonic fecal load may correspond to constipation Urinary bladder is decompressed. No bladder stones. Prior hysterectomy No free fluid in the pelvis. Prior lower anterior abdominal wall hernia repair.. Small fat containing hernia just above the repair mesh. IMPRESSION: Impression: 1. No renal or ureteral calculi. No urinary obstruction Authenticated and [facility] Dictated By: Ema Reyes Transcribed By: Transcribed On: 06/25/2024 10:37 PM Electronically signed by: Ema Reyes 06/25/2024 Thank you for referring EMA ZLUETA to [facility]. Legally authenticated by DWAYNE Cooper MD 2024-06-25 22:37:18 PATHOLOGY NARRATIVE RESULTS Information is not available MICROBIOLOGY RESULTS No Micro Labs/Results Exist for Patient BLOOD ADMIN RESULTS Information is not available MEDICATIONS HOME MEDICATIONS Status RXNORM [facility] Medication Dose Route Frequency Dates Comments Reported By Updated By Active FreeTe xtMed Aspir-Low Tablet Delayed Release 81 MG 81.0 MG ORAL DAILY Last Dose: [id number] on June 25, 2024 11:59:00 PM [facility] Active FreeTe xtMed glipiZIDE 5 MG 10.0 MG ORAL DAILY Last Dose: [id number] on June 25, 2024 11:59:00 PM [facility] Active FreeTe xtMed insulin lispro(RICHARD LOG) 100 UNIT/ML 0.0 SUBCUTA NEOUS SSPRN Last Dose: [id number] on June 25, 2024 11:59:00 PM [facility] Active 226741 755721 72430 Lantus SoloStar Solution Pen-injecto r 100 UNIT/ML 50.0 UNT SUBCUTA NEOUS DAILY Last Dose: [id number] on June 25, 2024 11:59:00 PM [facility] Active 905704 611457 85871 Lisinopril Tablet 10 MG 10.0 MG ORAL DAILY Last Dose: [id number] on June 25, 2024 11:59:00 PM [facility] Active FreeTe xtMed Mounjaro Solution Pen-injecto r 5 MG/0.5ML 5.0 MG SUBCUTA NEOUS QSAT Last Dose: once a week, sunday mornings [id number] on June 25, 2024 11:59:01 PM [facility] Active 411329 205301 15346 Prilosec OTC 20 mg tablet, delayed release (enteric coated) 1.0 TAB ORAL DAILY Last Dose: [id number] on June 25, 2024 11:59:01 PM [facility] Active FreeTe xtMed Wellbutrin SR oral 0.0 DAILY Last Dose: [id number] on June 25, 2024 11:59:01 PM [facility] DISCHARGE MEDICATIONS Status RXNORM ND Medication Dose Route Frequency Dates Comments Physician Updated By No Discharge Medication Info rmation Available INPATIENT MEDICATIONS Status RXNORM ND Medication Dose Route Frequency Rat e Quantity Dates Comments Physician Updated By [place] inued [id number] 6415 5000 906 DILAUDID 1 MG/ML SOLN 0.5 MG INTRAV ENOUS ONE TIME ONLY Start: June 26, 2024 12:13: 00 AM [place] End: June 26, 2024 12:13: 00 AM [facility] LINDA ARELLANO MD INTERFAC ED on June 26, 2024 12:12:00 AM [facility] Discont inued [id number] 6915 9475 503 ondansetron (ZOFRAN) 4 MG/2ML SOLN 4.0 MG INTRAV ENOUS ONE TIME ONLY Start: June 26, 2024 12:13: 00 AM [facility] End: June 26, 2024 12:13: 00 AM [facility] LINDA ARELLANO MD INTERFAC ED on June 26, 2024 12:12:00 AM [facility] Discont inued [id number] 4947 9379 501 ketorolac (TORADOL) 30 MG/ML SOLN 30.0 MG INTRAV ENOUS ONE TIME ONLY Start: June 26, 2024 12:27: 00 AM [facility] End: June 26, 2024 12:27: 00 AM [facility] LINDA ARELLANO MD INTERFAC ED on June 26, 2024 12:25:00 AM [facility] SOCIAL HISTORY SOCIAL HISTORY SNOMED-CT Social History Element Description Effective Dates Offered Cessation Comment UpdatedBy [id number] Current Tobacco smoking status Never Smoked [id number] on June 26, 2024 12:21:31 AM [facility] [id number] Historical Tobacco smoking status Former Smoker [id number] on June 23, 2024 8:27:43 PM [facility] [id number] Historical Tobacco smoking status Current Every Day Smoker [id number] on July 20, 2020 4:26:15 PM [facility] SOCIAL HISTORY - Gender Sex: Female SOCIAL [...] for each vital sign as of June 27, 2024 5:44:38 AM UTC Loinc Code Vital Sign Activity Date Result Updated By 8310-5 Body temperature June 26, 2024 12:03:00 AM UTC 97.6 [degF] [id number] on June 26, 2024 12:20:11 AM UTC 91200-8 Body weight Measured June 26 12:20:11 AM UTC 104.5 kg (230.0 lb) [id number] on June 26, 2024 12:20:11 AM UTC 8462-4 Diastolic blood pressure June 26, 2024 12:03:00 AM UTC 71.0 mm[Hg] [id number] on June 26, 2024 12:20:11 AM UTC 8867-4 Heart rate June 26, 2024 12:03:00 AM UTC 84 /min [id number] on June 26, 2024 12:20:11 AM UTC 08824-8 Oxygen saturation in Arterial blood by Pulse oximetry June 26, 2024 12:03:00 AM UTC 95.0 % [id number] on June 26, 2024 12:20:11 AM UTC 9279-1 Respiratory rate June 26, 2024 12:03:00 AM UTC 22 /min [id number] on June 26, 2024 12:20:11 AM UTC 8480-6 Systolic blood pressure June 26, 2024 12:03:00 AM UTC 158.0 mm[Hg] [id number] on June 26, 2024 12:20:11 AM UTC PEDIATRIC GROWTH CHART - VITAL SIGNS [...] available. ENCOUNTERS ENCOUNTER INFORMATION Reason for Visit ABDOMINAL PAIN Admission June 25, 2024 11:24:00 PM UTC [address] [id number] Discharge June 26, 2024 3:05:00 AM UTC DI SCHARGED TO HOME OR SELF CARE ENCOUNTER DIAGNOSES Notes information is not yaritza ilable. Code System Diagnosis Onset Date Diagnosis information is not available. ABSTRACT DIAGNOSES Code System Diagnosis Updated By M54.9 ICD10 DORSALGIA, UNSPECIFIED [id number] on June 27, 2024 5:43:29 AM UTC R10.30 ICD10 LOWER ABDOMINAL PAIN, UNSPEC IFIED [id number] on June 27, 2024 5:43:29 AM UTC R10.31 ICD10 RIGHT LOWER QUADRANT PAIN BY E3630 on June 27, 2024 5:43:30 AM UTC R10.11 ICD10 RIGHT UPPER QUADRANT PAIN BY E3630 on June 27, 2024 5:43:30 AM UTC I10 ICD10 ESSENTIAL (PRIMARY) HYPERTEN EDDIE [id number] on June 27, 2024 5:43:30 AM UTC E11.9 ICD10 TYPE 2 DIABETES MELLITUS WITHOUT COMPLICATIONS [id number] on June 27, 2024 5:43:30 AM UT F31.9 ICD10 BIPOLAR DISORDER, UNSPECIFIE D [id number] on June 27, 2024 5:43:30 AM UT Z90.49 ICD10 ACQUIRED ABSENCE OF OTHER SPECIFIED PARTS OF DIGESTIVE TRACT [id number] on June 27, 2024 5:43:30 AM UT Z79.82 ICD10 ALF (CURRENT) USE OF A SPIRIN [id number] on June 27, 2024 5:43:30 AM UT Z79.84 ICD10 OUTBOUND SALES ADVISOR (CURRE NT) USE OF ORAL HYPOGLYCEMIC DRUGS [id number] on June 27, 2024 5:43:30 AM UT Z79.85 ICD10 LONG-TERM (CURRE NT) USE OF INJECTABLE NON-INSULIN ANTIDIABETIC DRUGS [id number] on June 27, 2024 5:43:30 AM UT Z79.899 ICD10 OTHER ALF (CURRENT) DR TANA MCDONALD [id number] on June 27, 2024 5:43:30 AM UT CARE TEAM Care Accountant Bookkeeper Role EILEEN MCKEON Admitting EILEEN MCKEON Primary Attending EILEEN MCKOEN Referring JULIO CHERY Primary Care CARE TEAM CARE zipper slide attacher Role on Team Status Start Date End Date Update d By LINDA ARELLANO MD Referring normal June 26, 2024 12:52:28 AM UTC June 26, 2024 3:05:00 AM [place] [id number] on June 26, 2024 12:52:28 AM [facility] LINDA ARELLANO MD Attending normal June 26, 2024 12:52:28 AM [facility] June 26, 2024 3:05:00 AM [facility] [id number] on June 26, 2024 12:52:28 AM [facility] LINDA ARELLANO MD Admitting normal June 26, 2024 12:52:28 AM [facility] June 26, 2024 3:05:00 AM [facility] [id number] on June 26, 2024 12:52:28 AM [facility] normal June 25, 2024 11:24:20 PM [facility] June 26, 2024 3:05:00 AM [facility] [id number] on June 26, 2024 12:52:28 AM [facility]
--- NOTE | 2024-07-09 16:11 | XR_ITS ---
FINAL REPORT CLINICAL HISTORY: Bilateral lower extremity edema, history of heart COMPARISON: 08/14/2021 FINDINGS: PA and lateral views of the chest are obtained. The cardiac and mediastinal silhouettes are within normal limits. The lungs are clear. There is no pleural effusion, pneumothorax, or acute osseous abnormality. IMPRESSION: No radiographic evidence of acute cardiac or pulmonary disease. Reviewed, Interpreted and Dictated by Angelina Mejia MD Transcribed by Allie Gibbs Authenticated and [facility]
[2024-07-09 16:20] LABS: Basophils # 0.1 K/mm3 (0-0.2); Basophils % 0.6 % (0.1-2.0); Eosinophils # 0.6 Kmm3 (0.0-0.4); Hemoglobin 11.9 g/dL (12.2-16.2); Immature Granulocytes # 0.07 10^3uL; Immature Granulocytes % 0.6 %; Lymphocytes # 2.1 K/mm3 (0.7-4.5); Mean Corpuscular HGB Conc 33.1 g/dL (31.8-35.4); Mean Corpuscular Hemoglobin 27.3 pg (27.0-31.2); Mean Corpuscular Volume 82.6 fl (81-99); Mean Platelet Volume 9.7 fl (7.4-10.4); Monocytes # 0.9 K/mm3 (0.1-1.0); Monocytes % 7.9 % (1.7-9.3); Neutrophils # 7.4 K/mm3 (1.8-7.8); Neutrophils % 66.9 % (37.0-80.0); Nucleated Red Blood Cells # 0 10^3/uL; Nucleated Red Blood Cells % 0 %; Platelet Count 318 K/mm3 (142-424); Red Blood Count 4.36 M/mm3 (4.20-5.40); Red Cell Distribution Width 13.6 % (11.5-17.5); White Blood Count 11.1 K/mm3 (4.8-10.8)
[2024-07-09] MEDS: ACETAMINOPHEN 500MG TAB 1000 MG PO (16:20)
--- NOTE | 2024-07-09 16:21 | PC.NURSE ---
Pt returns from x-ray
[2024-07-09 16:29] LABS: Albumin Level 3.7 g/dl (3.5-5.0); Chloride 101 mmol/L (98-107); Sodium 133 mmol/L (136-145)
[2024-07-09 16:30] VITALS: BP 130/83; PULSE 93; O2SAT 93
[2024-07-09 16:30] LABS: Potassium 4.3 mmoL/L (3.5-5.1)
[2024-07-09 16:32] LABS: Alanine Aminotransferase 34 U/L (12-78); Albumin/Globulin Ratio 1.3 (1.1-1.8); Alkaline Phosphatase 332 U/L (38-126); Anion Gap 10.3 mEq/L (5-15); Aspartate Amino Transferase 31 U/L (14-36); Bilirubin,Total 0.2 mg/dl (0.2-1.3); Blood Urea Nitrogen 23 mg/dl (7-17); Carbon Dioxide 26 mmol/L (22.0-30.0); Creatinine Clearance Estimated 61 mL/min (50-200); Estimated Glomerular Filt Rate 74 ml/min (>60); GFR (African American) 89 ML/MIN (>60); Globulin 2.8 g/dL (1.3-3.2); Glucose 390 mg/dl (74-100); Total Protein,Serum 6.5 g/dl (6.3-8.2)
[2024-07-09 16:33] LABS: Magnesium 1.7 mg/dl (1.6-2.3)
[2024-07-09 16:34] LABS: INR 0.84 (0.9-1.1); Prothrombin Time 9.6 seconds (10.1-12.5)
[2024-07-09 16:42] LABS: NT Pro Brain Natriuretic Pep. 168 pg/mL (0-125)
[2024-07-09 16:49] LABS: D-Dimer 0.88 ug/mL (0.0-0.5)
[2024-07-09 16:50] LABS: Triiodothryronine (T3) Uptake 34 % (23.5-40.5)
[2024-07-09 16:51] LABS: T4 (Thyroxine) 8.7 ug/dl (5.53-11.0)
[2024-07-09 17:00] VITALS: BP 146/78; PULSE 99; O2SAT 95
[2024-07-09 17:01] LABS: Troponin I < 0.01 ng/ml (0.00-0.034)
[2024-07-09 17:04] LABS: Thyroid Stimulating Hormone 0.83 uIU/mL (0.465-4.68)
[2024-07-09 17:15] LABS: HIV Combo NEGATIVE (Negative)
[2024-07-09 17:23] LABS: Hepatitis C Ab Qual. W/ RFX NEGATIVE (Negative)
[2024-07-09 17:38] LABS: Microscopic, Urine URINE MICROSCOPIC (MICROSCOPIC)
[2024-07-09 17:40] LABS: Appearance,Urine CLEAR (Clear); Bilirubin,Urine Negative (Negative); Blood, Urine Negative (Negative); Color,Urine YELLOW (Yellow); Glucose,Urine (UA) 3+ (Negative); Ketones,Urine Negative (Negative); Leukocyte Esterase,Urine Negative (Negative); Nitrate,Urine Negative (Negative); PH,Urine 7.5 (5.0-8.5); Protein,Urine 1+ (Negative); Specific Gravity, Urine 1.015 (1.005-1.030); Urobilinogen,Urine 0.2 EU/dl (0.2)
--- NOTE | 2024-07-09 17:42 | CT_ITS ---
PROCEDURE INFORMATION: Exam: CT Abdomen And Pelvis With Contrast Exam date and time: 07/09/2024 5:55 PM Age: 59 years old Clinical indication: Pain and injury or trauma; Fall; Blunt; Abdominal wall; Abdominal pain; Generalized; Additional info: Fall with abd pain, bilat le edema TECHNIQUE: Imaging protocol: Computed tomography of the abdomen and pelvis with contrast. Radiation optimization: All CT scans at this facility use at least one of these dose optimization techniques: automated exposure control; mA and/or kV adjustment per patient size (includes targeted exams where dose is matched to clinical indication); or iterative reconstruction. Contrast material: ISOVUE; Contrast volume: 75 ml; Contrast route: IV; COMPARISON: CT CHEST WO CONTRAST 08/08/2021 8:09 PM FINDINGS: Limitations: Abdominalwall is incompletely imaged due to large body habitus extending out of the field of view. Liver: Hepatomegaly, measuring 25 cm in craniocaudal axis. No evidence of liver laceration. Gallbladder and biliary ducts: Unremarkable. Pancreas: Unremarkable. Spleen: No splenomegaly. Adrenal glands: Unremarkable. Kidneys and ureters: Unremarkable. Stomach and bowel: Unremarkable. Appendix: No evidence of appendicitis. Intraperitoneal space: No free fluid. No pneumoperitoneum. Vasculature: Unremarkable. Lymph nodes: Unremarkable. Urinary bladder: Unremarkable. Reproductive: Unremarkable. Bones/joints: Multi-level bridging or beaked disc osteophytes in the lower thoracic spine compatible with diffuse idiopathic skeletal hyperostosis (DISH). No evidence of acute osseous abnormality. Soft tissues: No evidence of acute soft tissue injury, noting that the body wall is incompletely visualized. Small fat-containing periumbilical hernia. Post-operative changes of prior ventral hernia repair also noted in the lower anterior abdominal wall with mesh in place. IMPRESSION: 1. No acute findings in the abdomen or pelvis. 2. Hepatomegaly. 3. Diffuse idiopathic skeletal hyperostosis (DISH) in the lower thoracic spine.
[2024-07-09] MEDS: KETOROLAC 30MG/ML VIAL 15 MG IV (17:43)
[2024-07-09 17:57] LABS: Bacteria,Urine Trace /lpf; RBC,Urine Occasional #/hpf (0-3); Yeast,Urine Occasional /lpf
[2024-07-09] MEDS: SODIUM CHLORIDE 0.9% 10ML SYR (RAD ONLY) 10 ML IV (17:58)
[2024-07-09] MEDS: IOPAMIDOL-370 (76%);100ML BOTTLE 75 ML IV (17:58)
[2024-07-09 19:05] VITALS: BP 132/78; PULSE 89; RESP 18; TEMP 36.8; O2SAT 98
[2024-07-09 20:44] LABS: Procalcitonin 0.063 ng/mL (0.0-2.0)
== END 2024-07-09 19:05 | disposition home or self-care (01) ==
PROVIDERS: Physician Assistant; Emergency Provider Student in an Organized Health Care Education/Training Program
DX: R22.43 Localized swelling, mass and lump, lower limb, bilateral (principal); I50.9 Heart failure, unspecified; E87.1 Hypo-osmolality and hyponatremia; Z11.59 Encounter for screening for other viral diseases; Z11.4 Encounter for screening for human immunodeficiency virus [HIV]
CPT/HCPCS: 71046; 74177; 80053; 81001; 83735; 83880; 84145; 84436; 84443; 84479; 84484; 85025; 85378; 85610; 86803; 87389; 93005; 96374; 99285; J1885; Q9967